=== PATIENT | male | born 1955 | race Caucasian/White ===

== ENCOUNTER → 2020-08-27 09:35 | Outpatient (BNVA) | payer OTHER, SELFPAY | PROVIDERS: Family Provider Family Medicine; Visit Provider Family Medicine | DX: I10 Essential (primary) hypertension (principal); K29.00 Acute gastritis without bleeding; R07.89 Other chest pain | CPT/HCPCS: 71046; 80053; 84484; 85025 ==

== ENCOUNTER 2020-08-28 10:25 | Inpatient (IN) | payer OTHER, SELFPAY ==
[2020-08-28] VITALS (11 sets, daily range): BP systolic 165–209; BP diastolic 78–113; PULSE 74–99; RESP 16–20; TEMP 36.4–36.8; O2SAT 95–100; BMI 20.7
--- NOTE | 2020-08-28 10:30 | CT_ITS ---
WS: [id number] CT ABDOMEN AND PELVIS NONCONTRAST HISTORY: Abdominal pain. TECHNIQUE: Imaging performed through the abdomen and pelvis. Coronal and sagittal reformats are submi tted. All CT scans at [facility] use at least one of these dose optimization techniques: automated exposure control; mA and/or kV adjustment per patient size (includes targeted exams where d ose is matched to clinical indication); or iterative reconstruction. DLP: 790.55 mGy.cm COMPARISON: None available. Lower thorax: Small layering bilateral pleural effusions with bibasilar areas of atelectasis. Focal c onsolidation is subsegmental at the RIGHT lung base consistent with pneumonia. Mild cardiomegaly. Liver: Normal size liver. No mass or bile duct dilatation. Gallbladder: Normal gallbladder. Pancreas: Normal size and attenuation. Normal pancreatic duct. No pancreatitis or mass. Spleen: Normal. Adrenal glands: Normal. No mass. Right kidney: Mild cortical thinning and atrophy with no obstruction. Left kidney: Mild cortical thinning with atrophy and no obstruction. Aorta: Moderate to severe atherosclerosis abdominal aorta. No aneurysm. Atherosclerosis continues int o the common iliac arteries. No free fluid, intraperitoneal air or significant lymphadenopathy. GI tract: Moderate diffuse fluid distention of the small bowel. There is a minimally dilated loop of small bowel extending into the very proximal RIGHT inguinal canal which may be causing a very minimal obstruction. The terminal ileum does appear less distended than the more proximal small bowel. The a ppendix is normal. There are a few colonic diverticula without acute diverticulitis. No free fluid or free air. Abdominal wall: Negative. No hernia. Pelvis: Urinary bladder is well distended. No free fluid. Osseous structures: Unremarkable. CT/CT abdomen pelvis wo con [id number] IMPRESSION: 1. Mild diffuse fluid distention of the small bowel. This may be secondary to a small bowel loop just minimally extending into a patent RIGHT inguinal canal. The distal small bowel is more normal caliber. There is no evidence for ischem ia. This small bowel loop extending into the RIGHT inguinal canal is only minim ally in the inguinal canal. 2. Normal appendix. 3. Small bilateral pleural effusions with RIGHT lower lobe pneumonia.
--- NOTE | 2020-08-28 10:31 | XR_ITS ---
WS: [id number] Portable AP upright chest, 08/28/2020 Clinical Data: dyspnea/cough Comparison: PA and lateral chest, 08/27/2020 Findings: No nodules, masses or effusions are seen. The heart is normal. The pulmonary vascularity is not increased. No pneumothorax is seen. There is minimal opacity over the surface of the right diaph ragm and a possible small right effusion. Monitor leads are on the chest wall. The aortic arch and de scending aorta show mild calcification and tortuosity. XR/XR chest 1V portable [id number] Impression: 1. Minimal opacity over surface of right diaphragm and minimal right pleural ef fusion. 2. Atherosclerosis.
[2020-08-28 10:51] LABS: Basophils # 0.1 10^3/uL (0.0-0.1); Eosinophils # 0.5 10^3/uL (0.0-0.8); Eosinophils % 6.6 %; Hematocrit 27.1 % (42.0-52.0); Lymphocytes # 1.5 10^3/uL (0.8-4.8); Lymphocytes % 18.4 %; Mean Corpuscular HGB Conc 33.2 g/dL (30.0-36.0); Mean Corpuscular Hemoglobin 33.6 pg (28.0-34.0); Mean Corpuscular Volume 101.1 fL (80-94); Mean Platelet Volume 9.9 fL (7.4-10.4); Monocytes # 0.6 10^3/uL (0.2-0.9); Monocytes % 6.8 %; Neutrophils # 5.33 10^3/uL (1.8-7.7); Neutrophils % 66.5 %; Nucleated Red Blood Cells % 0 %; Platelet Count 338 10^3/cmm (130-400); Red Blood Count 2.68 10^6/uL (4.1-5.3)
[2020-08-28 11:05] LABS: INR 1.16 (0.8-1.2)
[2020-08-28 11:06] LABS: Partial Thromboplastin Time 37.9 SECONDS (23.9-36.7)
[2020-08-28 11:11] LABS: Alanine Aminotransferase 10 U/L (0-41); Albumin Level 3.7 g/dL (3.5-5.2); Alkaline Phosphatase 83 IU/L (40-130); Anion Gap 21.1 (5-19); Aspartate Amino Transferase 19 U/L (0-40); Carbon Dioxide 13 mmol/L (22-29); Chloride 103 mmol/L (98-107); Glomerular Filtration Rate 12.3 mL/min (90-130); Glucose 82 mg/dL (65-115); Lipase 186 U/L (13-60); Osmolality Calculated 301 mOsm/kg (285-295); Potassium 4.1 mmol/L (3.5-5.1); Sodium 133 mmol/L (136-145); Total Bilirubin 0.2 mg/dL (0.15-1.2); Total Protein 7.7 g/dL (6.6-8.7)
[2020-08-28 11:13] LABS: Blood Urea Nitrogen 86 mg/dL (8-23); Calcium 4.3 mg/dL (8.5-10.5)
--- NOTE | 2020-08-28 11:25 | W.ED.RECABL ---
HPI - Recheck/Abnormal Lab/Rx General: Chief Complaint: Recheck/Abnormal Lab/Rx Stated Complaint: Abnormal labs Time Seen by Provider: 08/28/20 10:30 History of Present Illness: HPI narrative: 65-year-old male presents emergency room after abnormal labs were drawn at his doctor's office. His creatinine was found to be 5 and his hemoglobin was down to 8.9. He denies any history of hematochezia melena hematemesis or coffee-ground emesis. His tested positive for Covid he had symptoms last month but he was never actually tested positive. complaint: abnormal lab Initial visit (ago): day(s) Symptoms since prior visit: no new symptoms Context: called for abnormal lab result Associated symptoms: shortness of breath Review of Systems Const: Denies: fever(s), chills, body aches, change in appetite, fatigue or malaise ENMT: Denies: throat pain, ear or mastoid pain, nasal discharge or nasal congestion Card: Denies: chest pain, edema, dyspnea on exertion or orthopnea Resp: Denies: dyspnea, productive cough or non-productive cough GI: Denies: abdominal pain, nausea, vomiting, hematemesis, coffee ground emesis, diarrhea, constipation, bloating, hematochezia or melena : Denies: flank pain, dysuria, urinary frequency or urinary urgency Skin/Breast: Denies: rash or pruritus PFSH ED PFSH: Medical History (Updated 09/02/20 @ 13:16 by Nael Rodriguez DO) COVID-19 Hypertension Surgical History (Updated 08/31/20 @ 10:15 by Brian Vora MD) S/P hemodialysis catheter insertion (08/30/20) Social History Smoking and tobacco status: current every day smoker Alcohol intake: current Physical Exam Const: COMMON NORMALS: no acute distress GENERAL APPEARANCE: cooperative and comfortable ORIENTATION/CONSCIOUSNESS: Yes awake, Yes oriented to person, Yes oriented to place and Yes oriented to time HENMT: COMMON NORMALS: normocephalic, atraumatic and hearing grossly normal bilaterally HEAD & SCALP: normocephalic and atraumatic Neck/C-Spine: COMMON NORMALS: full ROM, no lymphadenopathy, supple and no JVD Resp: COMMON NORMALS: normal respiratory effort, No retractions, No use of accessory muscles and clear to auscultation bilaterally AUSCULTATION: clear to auscultation bilaterally Cardio: COMMON NORMALS: no JVD, regular rate, regular rhythm and No murmurs present (Cardio) RATE: regular rate RHYTHM: regular rhythm GI: COMMON NORMALS: Soft to palpation and No hepatosplenomegaly present AUSCULTATION: Yes normoactive bowel sounds PALPATION: Yes Soft to palpation, No Tenderness to palpation present (GI), No Guarding due to palpation present (GI) and Yes No hepatosplenomegaly present Extremity: COMMON NORMALS: normal to inspection, capillary refill normal, no clubbing, cyanosis or edema, no calf tenderness and no pedal edema Neuro: SENSORIUM/ORIENTATION: Yes oriented to person, Yes oriented to place and Yes oriented to time Skin: COMMON NORMALS: no rashes or lesions noted GENERAL SKIN EXAM: no rashes or lesions noted Course Vital Signs: Vital signs: Vital Signs Temperature 98.7 F 09/02/20 07:49 Pulse Rate 75 09/02/20 07:49 Respiratory Rate 18 09/02/20 07:49 Blood Pressure 128/65 09/02/20 07:49 Pulse Oximetry 97 09/02/20 07:49 MDM - Recheck/Abnormal Lab/Rx MDM Narrative: Medical decision making narrative: Admit for hypertensive urgency, acute renal failure and anemia Lab Data: Labs: Lab Results 08/28/20 08/28/20 08/28/20 Range/Units 10:39 10:44 10:44 WBC 8.0 (4.0-10.0) 10^3/ uL RBC 2.68 L (4.1-5.3) 10^6/u L Hgb 9.0 L (11.7-16.6) g/dL Hct 27.1 L (42.0-52.0) % MCV 101.1 H (80-94) fL MCH 33.6 (28.0-34.0) pg MCHC 33.2 (30.0-36.0) g/dL RDW 13.0 (12.1-15.1) % Plt Count 338 (130-400) 10^3/c mm MPV 9.9 (7.4-10.4) fL Neut % (Auto) 66.5 % Lymph % (Auto) 18.4 % Cannon % (Auto) 6.8 % Eos % (Auto) 6.6 % Baso % (Auto) 1.0 % Neut # (Auto) 5.33 (1.8-7.7) 10^3/u L Lymph # (Auto) 1.5 (0.8-4.8) 10^3/u L Cannon # (Auto) 0.6 (0.2-0.9) 10^3/u L Eos # (Auto) 0.5 (0.0-0.8) 10^3/u L Baso # (Auto) 0.1 (0.0-0.1) 10^3/u L Nucleated RBC % (a uto) 0 % Nucleated RBCs # 0.0 /100WBC Haptoglobin (30-200) mg/L PT 15.10 H (12.1-14.9) SECO NDS INR 1.16 (0.8-1.2) APTT 37.9 H (23.9-36.7) SECO NDS Sodium (136-145) mmol/L Potassium (3.5-5.1) mmol/L Chloride (98-107) mmol/L Carbon Dioxide (22-29) mmol/L Anion Gap (5-19) BUN (8-23) mg/dL Creatinine (0.7-1.2) mg/dL GFR Calculation (90-130) mL/min Glucose (65-115) mg/dL Calculated Osmolal ity (285-295) mOsm/k g Calcium (8.5-10.5) mg/dL Iron (59-158) ug/dL TIBC mcg/dl % Saturation (20-50) % Unsat Iron Binding (112-347) ug/dL Transferrin (200-360) mg/dL Total Bilirubin (0.15-1.2) mg/dL AST (0-40) U/L ALT (0-41) U/L Alkaline Phosphata se (40-130) IU/L Total Protein (6.6-8.7) g/dL Albumin (3.5-5.2) g/dL Globulin (1.3-4.6) g/dL Lipase (13-60) U/L Vitamin B12 (232-1245) pg/mL Folate (4.5-32.2) ng/mL Procalcitonin (0-0.5) ng/mL Urine Color Yellow (Yellow) Urine Appearance Clear (CLEAR) Urine pH 5 (5-7) Ur Specific Gravit y 1.005 (1.005-1.030) Urine Protein 3+ H (Negative) Urine Glucose (UA) Norm (Normal) Urine Ketones Negative (Negative) Urine Blood Neg (Negative) Urine Nitrate Negative (Negative) Urine Bilirubin Neg (Negative) Urine Urobilinogen Norm (Negative) mg/dL Ur Leukocyte Sheba ase Negative (Negative) Urine RBC 5-10 H (0-2) /hpf Urine WBC 0-4 H (0-5) /hpf Ur Squamous Epith Cells 0-4 H (0-5) /hpf Amorphous Sediment Not Reportable Urine Bacteria Trace (NONE) /hpf Urine Creatinine Cancelled Blood Type Rho(D) Type Antibody Screen 08/28/20 08/28/20 08/28/20 Range/Units 10:44 10:44 10:44 WBC (4.0-10.0) 10^3/ uL RBC (4.1-5.3) 10^6/u L Hgb (11.7-16.6) g/dL Hct (42.0-52.0) % MCV (80-94) fL MCH (28.0-34.0) pg MCHC (30.0-36.0) g/dL RDW (12.1-15.1) % Plt Count (130-400) 10^3/c mm MPV (7.4-10.4) fL Neut % (Auto) % Lymph % (Auto) % Cannon % (Auto) % Eos % (Auto) % Baso % (Auto) % Neut # (Auto) (1.8-7.7) 10^3/u L Lymph # (Auto) (0.8-4.8) 10^3/u L Cannon # (Auto) (0.2-0.9) 10^3/u L Eos # (Auto) (0.0-0.8) 10^3/u L Baso # (Auto) (0.0-0.1) 10^3/u L Nucleated RBC % (a uto) % Nucleated RBCs # /100WBC Haptoglobin 233.0 H (30-200) mg/L PT (12.1-14.9) SECO NDS INR (0.8-1.2) APTT (23.9-36.7) SECO NDS Sodium 133 L (136-145) mmol/L Potassium 4.1 (3.5-5.1) mmol/L Chloride 103 (98-107) mmol/L Carbon Dioxide 13 L (22-29) mmol/L Anion Gap 21.1 H (5-19) BUN 86 H* (8-23) mg/dL Creatinine 4.8 H (0.7-1.2) mg/dL GFR Calculation 12.3 L (90-130) mL/min Glucose 82 (65-115) mg/dL Calculated Osmolal ity 301 H (285-295) mOsm/k g Calcium 4.3 L* (8.5-10.5) mg/dL Iron 54 L (59-158) ug/dL TIBC 226 mcg/dl % Saturation 23.8 (20-50) % Unsat Iron Binding 172 (112-347) ug/dL Transferrin 181 L (200-360) mg/dL Total Bilirubin 0.2 (0.15-1.2) mg/dL AST 19 (0-40) U/L ALT 10 (0-41) U/L Alkaline Phosphata se 83 (40-130) IU/L Total Protein 7.7 (6.6-8.7) g/dL Albumin 3.7 (3.5-5.2) g/dL Globulin 4.0 (1.3-4.6) g/dL Lipase 186 H (13-60) U/L Vitamin B12 363 (232-1245) pg/mL Folate (4.5-32.2) ng/mL Procalcitonin 0.16 (0-0.5) ng/mL Urine Color (Yellow) Urine Appearance (CLEAR) Urine pH (5-7) Ur Specific Gravit y (1.005-1.030) Urine Protein (Negative) Urine Glucose (UA) (Normal) Urine Ketones (Negative) Urine Blood (Negative) Urine Nitrate (Negative) Urine Bilirubin (Negative) Urine Urobilinogen (Negative) mg/dL Ur Leukocyte Sheba ase (Negative) Urine RBC (0-2) /hpf Urine WBC (0-5) /hpf Ur Squamous Epith Cells (0-5) /hpf Amorphous Sediment Urine Bacteria (NONE) /hpf Urine Creatinine Blood Type Rho(D) Type Antibody Screen 08/28/20 08/28/20 Range/Units 10:44 11:19 WBC (4.0-10.0) 10^3/ uL RBC (4.1-5.3) 10^6/u L Hgb (11.7-16.6) g/dL Hct (42.0-52.0) % MCV (80-94) fL MCH (28.0-34.0) pg MCHC (30.0-36.0) g/dL RDW (12.1-15.1) % Plt Count (130-400) 10^3/c mm MPV (7.4-10.4) fL Neut % (Auto) % Lymph % (Auto) % Cannon % (Auto) % Eos % (Auto) % Baso % (Auto) % Neut # (Auto) (1.8-7.7) 10^3/u L Lymph # (Auto) (0.8-4.8) 10^3/u L Cannon # (Auto) (0.2-0.9) 10^3/u L Eos # (Auto) (0.0-0.8) 10^3/u L Baso # (Auto) (0.0-0.1) 10^3/u L Nucleated RBC % (a uto) % Nucleated RBCs # /100WBC Haptoglobin (30-200) mg/L PT (12.1-14.9) SECO NDS INR (0.8-1.2) APTT (23.9-36.7) SECO NDS Sodium (136-145) mmol/L Potassium (3.5-5.1) mmol/L Chloride (98-107) mmol/L Carbon Dioxide (22-29) mmol/L Anion Gap (5-19) BUN (8-23) mg/dL Creatinine (0.7-1.2) mg/dL GFR Calculation (90-130) mL/min Glucose (65-115) mg/dL Calculated Osmolal ity (285-295) mOsm/k g Calcium (8.5-10.5) mg/dL Iron (59-158) ug/dL TIBC mcg/dl % Saturation (20-50) % Unsat Iron Binding (112-347) ug/dL Transferrin (200-360) mg/dL Total Bilirubin (0.15-1.2) mg/dL AST (0-40) U/L ALT (0-41) U/L Alkaline Phosphata se (40-130) IU/L Total Protein (6.6-8.7) g/dL Albumin (3.5-5.2) g/dL Globulin (1.3-4.6) g/dL Lipase (13-60) U/L Vitamin B12 (232-1245) pg/mL Folate 5.1 (4.5-32.2) ng/mL Procalcitonin (0-0.5) ng/mL Urine Color (Yellow) Urine Appearance (CLEAR) Urine pH (5-7) Ur Specific Gravit y (1.005-1.030) Urine Protein (Negative) Urine Glucose (UA) (Normal) Urine Ketones (Negative) Urine Blood (Negative) Urine Nitrate (Negative) Urine Bilirubin (Negative) Urine Urobilinogen (Negative) mg/dL Ur Leukocyte Sheba ase (Negative) Urine RBC (0-2) /hpf Urine WBC (0-5) /hpf Ur Squamous Epith Cells (0-5) /hpf Amorphous Sediment Urine Bacteria (NONE) /hpf Urine Creatinine Blood Type B Positive Rho(D) Type Positive / 4+ Antibody Screen Negative Discharge Plan Discharge Patient Disposition: Admitted As Inpatient Admit Provider: Braydon Carrington Clinical Impression: Acute kidney injury, Hypertension, Acute hyperkalemia Condition: Stable Coding Level of Care Code ED Supervisor [place] Department for g Fwd Exam Comprehensive
[2020-08-28] MEDS: ondansetron 2 mg/ML SDV 2 mL 4 MG IVP (12:27)
[2020-08-28] MEDS: sodium chloride 0.9% 1,000 ML 999 ML IV (12:31)
--- NOTE | 2020-08-28 13:44 | PM.HP ---
Providers/Chief Complaint Admitting Physician: Braydon Carrington Primary Care Provider: Lauren Carranza MD Chief Complaint: G I Bleed/ Renal Problems History of Present Illness Jimmy Hernandez is a 65 year old male with past medical history of hypertension who was seen by his primary care physician couple of days ago with complaints of persistent nausea after recent Covid infection. Occasionally he dry heaves but reports no vomiting. He was diagnosed with Covid 19 about 2 months ago. His symptoms resolved without treatments. However nausea started about a month ago and did not go away. His primary care physician ran blood tests which revealed significantly increased creatinine. The patient was directed to emergency room for further evaluation. On review of systems he also reports numbness in the left hand. Denies abdominal pain. Reports couple of loose stools every day. The stool is brown. No blood. Denies fever or chills. Reports chronic cough. Mucus is white. No hemoptysis. He is a smoker. He was told before that he might have emphysema. Denies shortness of breath. Denies peripheral swelling. Denies chest pain or palpitations. No dizziness or lightheadedness. Reports yellow clear urine. Denies dysuria. No back pain. Denies similar episodes in the past. The patient denies any new medications taken recently. Denies any recreational drugs. Reports daily alcohol use. Review of Systems General: Reports: 10 or more systems reviewed and unremarkable except in HPI and below Medications/Allergies Home Medications Medication Instructions Recorded Confirmed Last Taken Type metoprolol tartrate 25 mg tablet 25 mg PO BID #180 tab 03/21/20 08/28/20 08/28/20 Rx lisinopril 20 mg tablet 20 mg PO DAILY #90 tab 03/26/20 08/28/20 08/28/20 Rx omeprazole 40 mg capsule,delayed 40 mg PO DAILY #30 cap 08/27/20 08/28/20 08/28/20 Rx release ondansetron HCl 4 mg tablet 4 mg PO Q8H PRN #30 tab 08/27/20 08/28/20 Unknown Rx Allergies Allergy/AdvReac Type Severity Reaction Status Date / Time Sulfa (Sulfonamide Allergy swelling Verified 08/27/20 07:46 Antibiotics) PFSH Acute PFSH: Medical History Hypertension Nicotine abuse Social History Smoking and tobacco status: current every day smoker Alcohol intake: current Vitals/I&O/Wt Last Vital Signs Temp 97.5 F L 08/28/20 10:29 Pulse 74 08/28/20 12:58 Resp 18 08/28/20 12:58 BP 189/113 08/28/20 12:58 Pulse Ox 99 08/28/20 12:58 Weight last 48 hrs Weight 63.503 kg Physical Exam Narrative: EXAM NARRATIVE: Awake alert oriented. No acute distress. Mood and affect are appropriate. Responses are adequate. Skin is warm and dry. Pale. Moist mucous membranes. Neck is supple. No JVD Eyes PERRLA, extraocular muscles are intact Normal speech. Lungs bilateral wheezes. No respiratory distress Heart S1, S2, regular Abdomen soft, nontender, bowel sounds are present Extremities no edema cyanosis or calf tenderness bilaterally Neuro examination is nonfocal. Cerebellar tests are within normal range. Data : 08/28/20 10:44 08/28/20 10:44 Other Labs: Laboratory Results WBC 8.0 10^3/uL (4.0-10.0) 08/28/20 10:44 RBC 2.68 10^6/uL (4.1-5.3) L 08/28/20 10:44 Hgb 9.0 g/dL (11.7-16.6) L 08/28/20 10:44 Hct 27.1 % (42.0-52.0) L 08/28/20 10:44 MCV 101.1 fL (80-94) H 08/28/20 10:44 MCH 33.6 pg (28.0-34.0) 08/28/20 10:44 MCHC 33.2 g/dL (30.0-36.0) 08/28/20 10:44 RDW 13.0 % (12.1-15.1) 08/28/20 10:44 Plt Count 338 10^3/cmm (130-400) 08/28/20 10:44 MPV 9.9 fL (7.4-10.4) 08/28/20 10:44 Neut % (Auto) 66.5 % 08/28/20 10:44 Lymph % (Auto) 18.4 % 08/28/20 10:44 Mercer % (Auto) 6.8 % 08/28/20 10:44 Eos % (Auto) 6.6 % 08/28/20 10:44 Baso % (Auto) 1.0 % 08/28/20 10:44 Neut # (Auto) 5.33 10^3/uL (1.8-7.7) 08/28/20 10:44 Lymph # (Auto) 1.5 10^3/uL (0.8-4.8) 08/28/20 10:44 Mercer # (Auto) 0.6 10^3/uL (0.2-0.9) 08/28/20 10:44 Eos # (Auto) 0.5 10^3/uL (0.0-0.8) 08/28/20 10:44 Baso # (Auto) 0.1 10^3/uL (0.0-0.1) 08/28/20 10:44 Nucleated RBC % (auto) 0 % 08/28/20 10:44 Nucleated RBCs # 0.0 /100WBC 08/28/20 10:44 PT 15.10 SECONDS (12.1-14.9) H 08/28/20 10:44 INR 1.16 (0.8-1.2) 08/28/20 10:44 APTT 37.9 SECONDS (23.9-36.7) H 08/28/20 10:44 Sodium 133 mmol/L (136-145) L 08/28/20 10:44 Potassium 4.1 mmol/L (3.5-5.1) 08/28/20 10:44 Chloride 103 mmol/L (98-107) 08/28/20 10:44 Carbon Dioxide 13 mmol/L (22-29) L 08/28/20 10:44 Anion Gap 21.1 (5-19) H 08/28/20 10:44 BUN 86 mg/dL (8-23) H* 08/28/20 10:44 Creatinine 4.8 mg/dL (0.7-1.2) H 08/28/20 10:44 GFR Calculation 12.3 mL/min (90-130) L 08/28/20 10:44 Glucose 82 mg/dL (65-115) 08/28/20 10:44 Calculated Osmolality 301 mOsm/kg (285-295) H 08/28/20 10:44 Calcium 4.3 mg/dL (8.5-10.5) L* 08/28/20 10:44 Total Bilirubin 0.2 mg/dL (0.15-1.2) 08/28/20 10:44 AST 19 U/L (0-40) 08/28/20 10:44 ALT 10 U/L (0-41) 08/28/20 10:44 Alkaline Phosphatase 83 IU/L (40-130) 08/28/20 10:44 Total Protein 7.7 g/dL (6.6-8.7) 08/28/20 10:44 Albumin 3.7 g/dL (3.5-5.2) 08/28/20 10:44 Globulin 4.0 g/dL (1.3-4.6) 08/28/20 10:44 Lipase 186 U/L (13-60) H 08/28/20 10:44 Blood Type B Positive 08/28/20 11:19 Rho(D) Type Positive / 4+ 08/28/20 11:19 Antibody Screen Negative 08/28/20 11:19 Impressions Abdomen/Pelvis CT 08/28/20 10:30 IMPRESSION: 1. Mild diffuse fluid distention of the small bowel. This may be secondary to a small bowel loop just minimally extending into a patent RIGHT inguinal canal. The distal small bowel is more normal caliber. There is no evidence for ischemia. This small bowel loop extending into the RIGHT inguinal canal is only minimally in the inguinal canal. 2. Normal appendix. 3. Small bilateral pleural effusions with RIGHT lower lobe pneumonia. Chest X-Ray 08/28/20 10:31 Impression: 1. Minimal opacity over surface of right diaphragm and minimal right pleural effusion. 2. Atherosclerosis. A&P Additional A&P Information 65-year-old male with past medical history of hypertension and COVID-19 infection about 2 months ago which did not require any treatments, was seen by his primary care physician for complaints of nausea. Blood testing revealed increased creatinine and new onset anemia. Acute kidney injury, severe. CT revealed possible chronic kidney disease. His creatinine several years ago was 0.9. No recent data is available. No evidence of hydronephrosis. The patient does not seem to be dehydrated. Will need nephrology evaluation and additional testing. Consulting Dr. Witt. Appreciate his input. Anemia. Most likely related to #1. However we will do additional testing to rule out other possibilities. Will order fecal occult blood testing, anemia work-up, haptoglobin to rule out hemolysis. Hemodynamically stable. We will closely monitor his H&H. We will transfuse when needed. Hypertensive urgency. We will continue his home beta-cherelle. We will stop lisinopril for now. We will add amlodipine and as needed labetalol. Hypocalcemia. Will replace with 2 g of calcium gluconate and recheck in the morning. Hyponatremia. Most likely related to COREY. Will monitor. Metabolic acidosis. Most likely related to #1. History of EtOH. We will start vitamin supplementation and as needed benzos per [facility] protocol. Tobacco abuse. Counseling will be provided. Possible emphysema. Will order as needed DuoNeb's. Spiriva. Right basilar opacity. Could be residual from his recent Covid pneumonia. Currently he does not have evidence of any uncontrolled infection. No fever. No shortness of breath. Chronic cough. I will check his procalcitonin level. Will start treatments only if infection is confirmed or highly suspected. Left upper extremity numbness. The patient reports a metal object in the head. Will discuss with radiology about possibility of MRI or will consider alternatives. Abnormal troponin. Denies chest pain or any other cardiac complaints. Most likely related to significant anemia in settings of acute kidney injury. Demand ischemia. Will order EKG and follow-up troponins. Will consider additional testing depending on symptoms and test results. CODE STATUS. The patient wants to be full code. The plan of care was discussed with the patient and his . They verbalized understanding and agreement. Attestations Medical Necessity Statement*: Based on my assessment of patient's presenting problems and need for additional testing I expect that the patient will spend more than 2 midnights in the hospital. Coding Level of Care Code Acute Trust Advisor for Maria Teresa Bruno
--- NOTE | 2020-08-28 14:08 | CT_ITS ---
WS: [id number] CT HEAD NONCONTRAST HISTORY: LUE numbness TECHNIQUE: Contiguous axial imaging performed through the brain in 2.5 mm imaging. Bone and soft tiss ue windows. Sagittal and coronal reformats reviewed. All CT scans at [facility] use at le ast one of these dose optimization techniques: automated exposure control; mA and/or kV adjustment pe r patient size (includes targeted exams where dose is matched to clinical indication); or iterative r econstruction. DLP: 980.52 mGy.cm COMPARISON: None available. No acute intracranial hemorrhage, midline shift or mass effect. Mild atrophy and chronic ischemic disease. Age indeterminate but subacute to chronic infarct involvin g the posterior RIGHT frontal lobe. No associated hemorrhage. Mild cerebral and cerebellar atrophy. T here is extensive artifact along the anterior interhemispheric falx from what is probably an aneurysm clip, may be associated with the anterior cerebral artery. Ventricles: Normal size with no hydrocephalus. Paranasal sinuses: As visualized are clear. Mastoid air cells: Well pneumatized. Calvarium and scalp: Bifrontal amie holes. CT/CT head wo con* [id number] IMPRESSION: 1. No acute intracranial hemorrhage. 2. 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 This infarct may explain the patient's LEFT hand numbness. 3. Extensive metallic artifact from what is probably an aneurysm clip along th e anterior interhemispheric falx.
[2020-08-28 14:29] LABS: Procalcitonin 0.16 ng/mL (0-0.5)
--- NOTE | 2020-08-28 14:32 | PM.CONSULT ---
Providers/Reason For Consult Consulting Physican/Specialty*: Nephrology Reason for Consult*: Renal failure Attending Physician: Braydon Carrington Primary Care Provider: Lauren Carranza MD History of Present Illness History of Present Illness Thank you for consultation, today I had the pleasure of reviewing this 65-year-old gentleman for evaluation of renal failure. He was told to come to our facility by his primary care doctor, Dr. Carranza (office number [phone]). I due to a variety of abnormalities identified on blood test. This included severe renal dysfunction with a creatinine of 5.3 mg/dL, bicarb of 14, anion gap 22.8, calcium of 4.7. Hemoglobin was noted to be 8.6. He is slightly nauseated for the last few days, he took some of his 's Zofran, also took some Pepto-Bismol. He did have symptoms of Covid a few weeks ago, following a confirmed case by his . I discussed his case with Dr. Carranza. For many years now Mr. Hernandez has had poorly controlled hypertension. He likes to avoid going to see doctors and has not been to the hospital for his whole life. He cannot recall the last time he had labs done and so we have no chronicity. Dr. Carranza will look in his medical chart to see any historic data tomorrow morning. Imaging is notable for a CT scan of the abdomen and pelvis which demonstrates bilaterally atrophic kidneys, with mild cortical thinning, moderate to severe atherosclerosis of the abdominal aorta. Hemodynamics are characteristically high for him. Prior to admission he took combination lisinopril metoprolol. He is currently receiving intravenous hydration with normal saline. He denies extremity edema, shortness of breath or other hypervolemic symptoms. Review of Systems Narrative: ROS - 12 point review of systems completed per HPI and subjective assessment, this includes Constitutional: No weakness, fatigue Respiratory: No SOB on exertion, comfortable at rest CardioVasc: No chest pain, palpitations Gastrointestinal: No nausea, no vomiting Neurological: No seizures, no AMS Derm: No new rashes, lesions or wounds Immunological: No seasonal and no food allergies Meds/Allergies Home Medications and Allergies Home Medications Medication Instructions Recorded Confirmed Last Taken Type metoprolol tartrate 25 mg tablet 25 mg PO BID #180 tab 03/21/20 08/28/20 08/28/20 Rx lisinopril 20 mg tablet 20 mg PO DAILY #90 tab 03/26/20 08/28/20 08/28/20 Rx omeprazole 40 mg capsule,delayed 40 mg PO DAILY #30 cap 08/27/20 08/28/20 08/28/20 Rx release ondansetron HCl 4 mg tablet 4 mg PO Q8H PRN #30 tab 08/27/20 08/28/20 Unknown Rx Allergies Allergy/AdvReac Type Severity Reaction Status Date / Time Sulfa (Sulfonamide Allergy swelling Verified 08/27/20 07:46 Antibiotics) PFSH Acute PFSH: Medical History Hypertension Nicotine abuse Social History Smoking and tobacco status: current every day smoker Alcohol intake: current Vitals/I&O/Wt Last Vital Signs Temp 97.5 F L 08/28/20 10:29 Pulse 77 08/28/20 14:25 Resp 18 08/28/20 14:25 BP 188/100 08/28/20 14:25 Pulse Ox 97 08/28/20 14:25 Weight last 48 hrs Weight 63.503 kg Physical Exam Narrative: EXAM NARRATIVE: Constitutional: Awake, comfortable HEENT: Wet mucosa, no jvp, non icteric Lungs: Bilaterally wheeze, rales in all lung zones CVS: S1 S2, no murmurs Abdo: Soft, BS ok Ext 4: Minimal edema, peripheral perfusion with no cyanosis Neurological: Grossly non-focal A&P Additional A&P Information 1. Very advanced renal failure Without any prior data, we do not know the chronicity of his renal injury, however, I suspect that this is very longstanding as he has bilateral renal atrophy on CT imaging, anemia from lack of endogenous erythropoietin, hypocalcemia from lack of endogenous calcitriol. There may be an element of prerenal azotemia from recent poor p.o. intake and his nausea. Chronic kidney disease likely secondary to renal vascular disease as there was significant amount of atherosclerosis seen in local adjacent arteries on the CT scan. 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 I agree with gentle IV hydration. I will get a renal artery Doppler to evaluate for stenosis. If there is significant stenosis I would strongly consider him for MRA/CT angio. We will do work-up to include urinalysis with urine protein quantification, microscopy, fractional excretion of sodium and urea. Serology to include TSH, CPK, uric acid, ANCA, complement Given the atrophic appearance of his kidneys on CT scan, a kidney biopsy is unlikely to be fruitful, however, this may be something to discuss with radiology. No acute indication for hemodialysis today, however, he will need preparation for modalities of renal replacement therapy for the future. This can be done as an outpatient depending upon local availability. Avoid usual nephrotoxic agents. Strict ins and outs Dose medication for GFR less than 15 2. Chemistry Anion gap metabolic acidosis, likely secondary to uremia, will send lactic acid level. No alkalinization until calcium levels adequate (this drops fractional ionized calcium portion from binding with hope and albumin ionic sites) 3. Bone metabolism of CKD Severe hypocalcemia, likely secondary to endogenous deficiency of calcitriol, again this indicates longstanding advanced chronic kidney disease. We will initiate calcitriol 0.5 mg daily Status post 2 g calcium gluconate. We will add Tums 1000 mg 4 times daily. We will check vitamin D, PTH, phosphorus levels 4. Hypertension Continue home medication with metoprolol 25 mg twice daily and will add hydralazine 50 mg 3 times daily given that he likely has renal artery narrowing. Case discussed with Dr Carranza, his PCP, Dr Carrington and his at bedside, answering all questions from family members to their satisfaction. Thank you for consultation, as always it is a pleasure to follow these patients with you Sarabjit Witt MD Nephrology [phone] Patient seen and examined via telemedicine, with the assistance of the bedside RN > 25 min spent in evaluation and mgmt of patient Consult Attestations Medical Necessity Statement: eval for renal failure Coding Level of Care Code Acute Remotely Operated Vehicle for Maria Teresa Bruno
--- NOTE | 2020-08-28 14:53 | ECG_ITS ---
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 Measurements Intervals [place] Rate: 71 P: 64 WI: 177 QRS: 69 QRSD: 98 T: 89 QT: 456 QTc: 499 Interpretive Statements SINUS RHYTHM POSSIBLE LEFT ATRIAL ENLARGEMENT [-0.1mV P WAVE IN V1/V2] PROLONGED QT INTERVAL No previous ECG available for comparison Electronically Signed On 08-28-2020 19:49:21 CDT by Florian Posey M.D. [id number]
--- NOTE | 2020-08-28 16:07 | ECG_ITS ---
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 Measurements Intervals [place] Rate: 100 P: 57 SD: 132 QRS: 59 QRSD: 101 T: 81 QT: 391 QTc: 506 Interpretive Statements SINUS TACHYCARDIA MINIMAL ST DEPRESSION [0.025+ mV ST DEPRESSION] Compared to ECG 08/28/2020 10:48:54 ST (T wave) deviation now present Sinus rhythm no longer present Prolonged QT interval no longer present Electronically Signed On 08-29-2020 17:28:08 CDT by Liane Boyer M.D. [id number]
[2020-08-28 16:12] LABS: Lactate (Lactic Acid level) 0.6 mmol/L (0.5-2.2)
[2020-08-28 16:27] LABS: 25 Hydroxy Vitamin D 6 ng/mL (30-100); Creatine Phosphokinase 191 U/L (39-308); Phosphorus 4.1 mg/dL (2.5-4.5); Thyroid Stimulating Hormone 3.36 uIU/mL (0.27-4.20); Uric Acid 8.5 mg/dL (3.4-7.0)
[2020-08-28 16:29] LABS: Magnesium 0.5 mg/dL (1.7-2.3)
[2020-08-28] MEDS: hyDRALAzine 25 mg Tablet 75 MG PO (16:37)
[2020-08-28] MEDS: calcium carbonate 500 mg Chew Tablet 1000 MG PO ×2 (16:38→18:07)
[2020-08-28 17:20] LABS: Troponin(5th) Baseline 38 ng/L (0-15)
[2020-08-28 17:26] LABS: Calcium 4.7 mg/dL (8.5-10.5)
[2020-08-28] MEDS: ipratropium-albuterol 3 mL Neb INHALATION (17:26)
[2020-08-28 17:36] LABS: Iron 54 ug/dL (59-158); Percent Saturation 23.8 % (20-50); Total Iron Binding Capacity 226 mcg/dl; Transferrin 181 mg/dL (200-360); Unsaturated Iron Binding 172 ug/dL (112-347); Vitamin B12 363 pg/mL (232-1245)
--- NOTE | 2020-08-28 17:38 | PC.RESP ---
Smoking Cessation information sent to patient.
[2020-08-28 17:47] LABS: Folate Level 5.1 ng/mL (4.5-32.2)
[2020-08-28 18:02] LABS: Troponin 5 2HR 34.15 ng/L (0-15)
[2020-08-28 18:12] LABS: Troponin 5 2HR Delta -3.85 ABS# (0-10)
[2020-08-28] MEDS: sodium chloride 0.9% 1,000 ML 75 ML IV (18:47)
[2020-08-28 19:27] LABS: Add Urine Microscopic? YES; Bilirubin Urine Neg (Negative); Blood Urine 3+ (Negative); Glucose Urine UA Norm (Normal); Ketones Urine Negative (Negative); Leukocyte Esterase Urine Negative (Negative); Nitrate Urine Negative (Negative); Protein Urine 3+ (Negative); Urine Appearance Clear (CLEAR); Urine Color Straw (Yellow); Urobilinogen Urine Norm (Negative); pH Urine 5 (5-7)
[2020-08-28 19:36] LABS: Bacteria Urine 1+ /hpf; Squamous Epithelial Cell Urine 0-4 /hpf (0-5)
--- NOTE | 2020-08-28 20:02 | ECG_ITS ---
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 Measurements Intervals [place] Rate: 86 P: 62 MS: 150 QRS: 46 QRSD: 95 T: 68 QT: 416 QTc: 500 Interpretive Statements SINUS RHYTHM Compared to ECG 08/28/2020 17:23:53 Sinus tachycardia no longer present ST (T wave) deviation no longer present Electronically Signed On 08-29-2020 17:27:57 CDT by Liane Boyer M.D. [id number]
--- NOTE | 2020-08-28 20:21 | PC.NURSE ---
AT APPROX 1830 WENT TO PTS ROOM TO ANSWER HIS CALL LIGHT. PTS STATED, THAT TX FROM RESP. MADE HIM FLUSH NOTIFIED RT, THEY CAME TO PTS ROOM, VS CHECK AND WERE WNL. EKG ALSO PREFORMED. PTS BP TAKEN AND WAS TO FOUND TO BE 119/76. PTS STATES, THAT'S WAY TOO LOW FOR HIM! DR. CHRISTIE NOTIFIED, CAME TO ROOM TO ASSESS PT, PT WAS LAID DOWN FLAT AND PTS BP KALYAN TO 156/84. WILL CONTINUE TO MONITOR.
[2020-08-28] MEDS: magnesium sulfate premix 2 GM/50 ML PIGGYBACK IV (20:53)
[2020-08-28] MEDS: metoprolol tartrate 25 mg Tablet PO (20:55)
[2020-08-28 22:02] LABS: Troponin 5 6HR 42.26 ng/L (0-15); Troponin 5 6HR Delta 4.26 ng/L (0-12)
[2020-08-28 23:14] LABS: Complement C3 112 mg/dL (90-180)
[2020-08-29] VITALS (12 sets, daily range): BP systolic 140–194; BP diastolic 67–82; PULSE 80–93; RESP 16–18; TEMP 36.6–37; O2SAT 95–98
[2020-08-29] MEDS: sodium chloride 0.9% 1,000 ML 75 ML IV (03:49)
--- NOTE | 2020-08-29 05:00 | USCV_ITS ---
Jimmy Hernandez Age: 65 Gender: M : 1955 Exam Date: 08/29/2020 06:50 Ordering Phys: Braydon Carrington MD Technologist: Analilia Sahu Exam Location: [facility] – [place] Indication: stroke workup BP: 167 / 79 HR: 91 Rhythm: Sinus Technical Quality: Adequate MEASUREMENTS (Male / Female) Normal Values 2D ECHO LV Diastolic Diameter PLAX 4.6 cm 4.2 - 5.9 / 3.9 - 5.3 cm LV Systolic Diameter PLAX 2.8 cm LV Chamber Size 3.2 cm IVS Diastolic Thickness 1.2 cm 0.6 - 1.0 / 0.6 - 0.9 cm IVS Systolic Thickness 1.4 cm LVPW Diastolic Thickness 1.9 cm 0.6 - 1.0 / 0.6 - 0.9 cm LVPW Systolic Thickness 2.9 cm RV Chamber Size 3.0 cm LVOT Diameter 2.1 cm LV Ejection Fraction 2D Teich 69.6 % LV Ejection Fraction MOD 2C 54.3 % LV Ejection Fraction 2C AL 56.8 % LA Diameter 4.0 cm LA Width 3.4 cm LA Height 4.5 cm RA Width 3.0 cm RA Height 4.1 cm Aorta at Sinotubular Diameter 3.2 cm M-MODE LV Diastolic Diameter MM 4.7 cm 4.2 - 5.9 / 3.9 - 5.3 cm LV Systolic Diameter MM 3.0 cm LV Ejection Fraction MM Teich 67.6 % IVS Diastolic Thickness MM 0.8 cm 0.6 - 1.0 / 0.6 - 0.9 cm IVS Systolic Thickness MM 1.2 cm LVPW Diastolic Thickness MM 1.1 cm 0.6 - 1.0 / 0.6 - 0.9 cm LVPW Systolic Thickness MM 1.4 cm Aortic Annulus Diameter 3.6 cm LA Ao Ratio MM 1.1 MV E Point Septal Separation 0.6 cm DOPPLER AV Peak Velocity 134.0 cm/s LVOT Peak Velocity 101.0 cm/s AV Area Cont Eq vti 2.7 cm squared AV Area Cont Eq pk 2.5 cm squared MV Area PHT 7.1 cm squared Mitral E to A Ratio 1.0 MV E' Velocity 67.0 cm/s Mitral E to MV E' Ratio 10.3 Mitral E to LV E' Lateral Ratio 9.6 Mitral E to LV E' Septal Ratio 11.1 TR Peak Velocity 339.4 cm/s TR Peak Gradient 46.1 mmHg TR Mean Velocity 231.9 cm/s TR Mean Gradient 25.3 mmHg TR Velocity Time Integral 90.8 cm TV Peak E Velocity 77.0 cm/s Right Atrial Pressure 3.0 mmHg Pulmonary Artery Systolic Pressu 49.1 mmHg PV Peak Velocity 91.0 cm/s RV Acceleration Time 0.3 s RV Ejection Time 0.4 s RV AcT/ET 0.7 FINDINGS Left Ventricle Normal left ventricular size. LV systolic function is normal with EF of 55-60%.No regional wall motion abnormalities. Normal diastolic filling pattern. Right Ventricle The right ventricle is normal in size and function. Right Atrium The right atrium is normal in size. Left Atrium The left atrium is normal in size. Mitral Valve Structurally normal mitral valve without significant stenosis or prolapse. There is mild mitral regurgitation. Aortic Valve Structurally normal aortic valve without significant sclerosis or stenosis. There is no aortic regurgitation. Tricuspid Valve Structurally normal tricuspid valve without significant stenosis. Trace tricuspid regurgitation. Insufficient TR jet to calculate RVSP Pulmonic Valve Structurally normal pulmonic valve without significant stenosis. There is no pulmonic regurgitation. Pericardium Normal pericardium without effusion. Aorta Normal ascending aorta dimension. CONCLUSIONS LV systolic function is normal with EF of 55-60% Diastolic function is normal There is mild mitral regurgitation. Trace tricuspid regurgitation No comparison studies are available Alvin Mcpherson MD (Electronically Signed) Final Date: 29 August 2020 16:28 S
--- NOTE | 2020-08-29 05:00 | USCV_ITS ---
Jimmy Hernandez Age: 65 Gender: M : 1955 Exam Date: 08/29/2020 07:02 Ordering Phys: Braydon Carrington MD Technologist: RUSS Exam Location: [facility] – [place] Indication: stroke workup Risk Factors: Previous Vascular Surgery: Right Brachial BP: / Left Brachial BP: / Right Left Velocity (cm/s) Spectral Plaque Velocity (cm/s) Spectral Plaque Syst/Diast Broadening Syst/Diast Broadening 91.50/ 19.80 Prox CCA 58.50 / 14.00 81.60/ 25.40 Mid CCA 48.30 / 9.70 79.40/ 32.00 Distal CCA 61.50 / 14.50 70.00/ 29.70 Prox ICA 75.50 / 27.50 77.40/ 31.30 Mid ICA 77.20 / 21.50 79.90/ 23.90 Distal ICA 75.50 / 25.70 151.70 ECA 94.40 0.98 ICA/CCA 1.60 Antegrade Vertebral Antegrade 61.80/ 20.60 cm/s 38.50/ 12.80 cm/s Tri Subclavian Tri 70.90 90.40 FINDINGS Comparison: none available. No significant elevation of systolic or diastolic velocities. Waveforms are normal. Diffuse, mild bilateral scattered calcified plaque and intimal thickening throughout the common carotid arteries and extending through the bifurcation. CONCLUSIONS Bilateral ICA stenosis less than 50%. Mild diffuse atherosclerosis. Dr. Silva Wilkes DO (Electronically Signed) Final Date: 29 August 2020 08:48 S
--- NOTE | 2020-08-29 05:00 | USCV_ITS ---
Jimmy Hernandez Age: 65 Gender: M : 1955 Exam Date: 08/29/2020 07:17 Ordering Phys: Sarabjit Witt MD Technologist: Analilia Sahu Exam Location: [facility] [place] Site Location: [Add Site Location] Indication: HTN Aortic Velocity @ SMA (cm/s) 128 RIGHT KIDNEY LEFT KIDNEY Velocity (cm/s) Velocity (cm/s) Sys/Pringle Sys/Pringle Resistive Index Resistive Index 93.1 / 17.4 0.81 Proximal Renal Artery 61.1 / 13.3 0.78 93.7 / 15.4 0.84 Mid Renal Artery 42.8 / 10.5 0.75 51.5 / 16.7 0.68 Distal Renal Artery 61.1 / 13.3 0.78 35.8 / 13.3 0.63 Hilar 27.1 / 8.6 0.68 21.7 / 10.5 0.52 Upper Pole 15.4 / 7.2 0.53 26.8 / 11.6 0.57 Mid Pole 30.0 / 9.5 0.68 28.9 / 17.1 0.41 Lower Pole 61.1 / 21.7 0.65 0.70 Renal Aortic Ratio 0.48 Accleration Index (cm/sec2) 1394.0 Hilar 864.00 0 568.00 Upper Pole 791.00 596.00 Mid Pole 689.00 358.00 Lower Pole 1909.0 0 99.8 Kidney Length (mm) 106.0 FINDINGS No evidence of abdominal aortic aneurysm. There is no evidence of hemodynamically significant right renal artery stenosis. There is no evidence of hemodynamically significant left renal artery stenosis. Echogenic kidneys suggest chronic medical renal disease. CONCLUSIONS No sonographic evidence of hemodynamically significant renal artery stenosis bilaterally. Dr. Silva Wilkes DO (Electronically Signed) Final Date: 29 August 2020 08:50 S
[2020-08-29 06:11] LABS: Basophils # 0.1 10^3/uL (0.0-0.1); Basophils % 0.8 %; Eosinophils # 0.2 10^3/uL (0.0-0.8); Eosinophils % 3.7 %; Hemoglobin 7.8 g/dL (11.7-16.6); Lymphocytes # 0.8 10^3/uL (0.8-4.8); Lymphocytes % 12.6 %; Mean Corpuscular HGB Conc 32.5 g/dL (30.0-36.0); Mean Corpuscular Hemoglobin 32.5 pg (28.0-34.0); Mean Platelet Volume 10.4 fL (7.4-10.4); Monocytes # 0.5 10^3/uL (0.2-0.9); Monocytes % 8.4 %; Neutrophils # 4.72 10^3/uL (1.8-7.7); Neutrophils % 73.7 %; Nucleated Red Blood Cells % 0 %; Platelet Count 328 10^3/cmm (130-400); White Blood Count 6.4 10^3/uL (4.0-10.0)
[2020-08-29 06:18] LABS: PROTEIN, TOTAL 7.2 g/dL (6.1-8.1)
[2020-08-29 06:49] LABS: Alanine Aminotransferase 8 U/L (0-41); Albumin Level 3.3 g/dL (3.5-5.2); Alkaline Phosphatase 62 IU/L (40-130); Anion Gap 26.4 (5-19); Aspartate Amino Transferase 17 U/L (0-40); Carbon Dioxide 11 mmol/L (22-29); Chloride 106 mmol/L (98-107); Globulin 2.7 g/dL (1.3-4.6); Glomerular Filtration Rate 10.5 mL/min (90-130); Glucose 73 mg/dL (65-115); Osmolality Calculated 313 mOsm/kg (285-295); Potassium 4.4 mmol/L (3.5-5.1); Sodium 139 mmol/L (136-145); Total Bilirubin 0.2 mg/dL (0.15-1.2)
[2020-08-29 07:02] LABS: Phosphorus 4.5 mg/dL (2.5-4.5); Thyroid Stimulating Hormone 2.06 uIU/mL (0.27-4.20)
[2020-08-29 07:13] LABS: Blood Urea Nitrogen 88 mg/dL (8-23); Calcium 5.3 mg/dL (8.5-10.5)
[2020-08-29 07:30] LABS: Chol HDL Ratio 2.65 mg/dL (1.0-5.00); Cholesterol 114 mg/dL (0-200); HDL Cholesterol 43 mg/dL (60-100); LDL Cholesterol Calculated 45 mg/dL (50-129); LDL HDL Ratio 1.05 RATIO (0.00-3.22); Triglycerides 131 mg/dL (0-150)
--- NOTE | 2020-08-29 07:43 | P.PN_ITS ---
Subjective Subjective: Interval history: reports nausea improved Medications: Reviewed: Yes Vitals/I&O/Wt Last Vital Signs Temp 98.6 F 08/29/20 03:56 Pulse 87 08/29/20 06:00 Resp 16 08/29/20 03:56 BP 167/79 08/29/20 03:56 Pulse Ox 95 08/29/20 03:56 08/28/20 08/29/20 08/29/20 22:59 06:59 14:59 Intake Total 1120 / 1120 677.5 / 1797.5 Output Total 325 / 325 Balance 795 / 795 677.5 / 1472.5 Weight last 48 hrs Weight 63.503 kg Physical Exam Const: COMMON NORMALS: no acute distress GENERAL APPEARANCE: cooperative Resp: COMMON NORMALS: normal respiratory effort and clear to auscultation bilaterally AUSCULTATION: clear to auscultation bilaterally Cardio: COMMON NORMALS: regular rate and regular rhythm RATE: regular rate RHYTHM: regular rhythm Extremity: COMMON NORMALS: no pedal edema Data : 08/29/20 04:52 08/29/20 04:52 CT Abd/Pel: Radiologist's impression: Right kidney: Mild cortical thinning and atrophy with no obstruction. Left kidney: Mild cortical thinning with atrophy and no obstruction. Aorta: Moderate to severe atherosclerosis abdominal aorta. No aneurysm. Ather osclerosis continues into the common iliac arteries. US: Radiologist's impression: No evidence of abdominal aortic aneurysm. There is no evidence of hemodynamically significant right renal artery stenosis. There is no evidence of hemodynamically significant left renalartery stenosis. Echogenic kidneys suggest chronic medical renal disease. A&P Additional A&P Information Impression: 1. Likely ESRD 2. Metabolic acidosis 3. Hypocalcemia, vitamin D levels pending, hypomagnesemia 4. Anemia, iron replete 5. Hypertension, no evidence VERNON on doppler Recommend: add ergocalciferol and calcitriol, continue oral calcium, check ionized calcium, replace Mg IV and PO. Begin oral sodium bicarbonate, increase amlodipine and if neededm increase hydralazine I had a long discussion with Jimmy about ESRD, options for dialysis. My recommendation is placement of tunneled hemodialysis catheter with initiation of dialysis prior to discharge. We discussed peritoneal dialysis which could be arranged by outpatient nephrology. There should be improvement in electrolytes prior to OR. Attestations Medical Necessity Statement*: see above Coding Level of Care Code Acute Window Caser for Maria Teresa Bruno
[2020-08-29] MEDS: magnesium sulfate premix 2 GM/50 ML PIGGYBACK IV ×2 (08:40→14:31)
[2020-08-29] MEDS: sodium bicarbonate 650 mg Tablet PO ×4 (08:41→20:35)
[2020-08-29] MEDS: ergocalciferol (vitamin D2) 50,000 Unit Capsule 50000 UNIT PO (08:41)
[2020-08-29] MEDS: multivitamin therapeutic Tablet 1 TAB PO (08:42)
[2020-08-29] MEDS: hyDRALAzine 25 mg Tablet 75 MG PO ×2 (08:42→14:25)
[2020-08-29] MEDS: pantoprazole DR 40 mg Tablet PO (08:42)
[2020-08-29] MEDS: thiamine 100 mg Tablet PO (08:42)
[2020-08-29] MEDS: metoprolol tartrate 25 mg Tablet PO ×2 (08:42→20:35)
[2020-08-29] MEDS: amlodipine 5 mg Tablet PO (08:46)
[2020-08-29] MEDS: sodium bicarbonate 150 MEQ in dextrose 5% 1,000 ML 100 MEQ IV (08:47)
[2020-08-29] MEDS: calcium carbonate 500 mg Chew Tablet 1000 MG PO ×3 (10:17→17:44)
[2020-08-29] MEDS: lactulose oral liq 20 gm/30 mL UDC 10 GM PO ×2 (10:44→17:47)
[2020-08-29] MEDS: calcitriol 0.25 mcg Capsule 0.5 MCG PO (10:50)
[2020-08-29] MEDS: amlodipine 5 mg Tablet 10 MG PO (10:50)
[2020-08-29 13:45] LABS: Ionized Calcium 0.7 mmol/L (1.1-1.4)
[2020-08-29] MEDS: calcium gluconate 0.1 gm/mL 10% SDV 10mL 1 GM IVP (14:59)
[2020-08-29 15:18] LABS: ALBUMIN 3.5 g/dL (3.8-4.8); ALPHA 1 GLOBULIN 0.4 g/dL (0.2-0.3); ALPHA 2 GLOBULIN 0.9 g/dL (0.5-0.9); BETA 1 GLOBULIN 0.4 g/dL (0.4-0.6); BETA 2 GLOBULIN 0.7 g/dL (0.2-0.5); GAMMA GLOBULIN 1.4 g/dL (0.8-1.7)
--- NOTE | 2020-08-29 15:30 | PM.PN ---
Subjective Subjective: Interval history: The patient denies any nausea or vomiting. No bowel movement yet. Denies chest pain, shortness of breath, cough, palpitations. No muscle weakness. The numbness in the hand is unchanged. No fever or chills. Medications: Reviewed: Yes Medication Review Details: Generic Name Dose Route Start Last Admin Trade Name Freq PRN Reason Stop Dose Admin Albuterol/Ipratrop ium 3 ml 08/28/20 14:00 08/28/20 17:26 Ipratropium-Albu terol 3 Ml Neb INHALATION 3 ml Q4H PRN Administration SHORTNESS OF ELVIN TH Amlodipine Besylat e 10 mg 08/29/20 10:30 08/29/20 10:50 Amlodipine 5 Mg Tablet PO 10 mg DAILY YARELY Administration Calcitriol 0.5 mcg 08/29/20 10:25 08/29/20 10:50 Calcitriol 0.25 Mcg Capsule PO 0.5 mcg DAILY YARELY Administration Calcium Carbonate 1,000 mg 08/28/20 14:30 08/29/20 14:25 Calcium Carbonat e 500 Mg Chew Tabl et PO 1,000 mg Q4H YARELY Administration Hydralazine HCl 75 mg 08/28/20 15:00 08/29/20 14:25 Hydralazine 25 M g Tablet PO 75 mg TID YARELY Administration Lactulose 10 gm 08/29/20 10:21 08/29/20 10:44 Lactulose Oral L iq 20 Gm/30 Ml Udc PO 10 gm Q6H PRN Administration CONSTIPATION Metoprolol Tartrat e 25 mg 08/28/20 21:00 08/29/20 08:42 Metoprolol Tartr ate 25 Mg Tablet PO 25 mg BID@0900,2100 YARELY Administration Multivitamins Ther apeutic 1 tab 08/29/20 09:00 08/29/20 08:42 Multivitamin The rapeutic Tablet PO 1 tab DAILY YARELY Administration Pantoprazole Sodiu m 40 mg 08/29/20 09:00 08/29/20 08:[address] 40 Mg Tablet PO 40 mg DAILY YARELY Administration Sodium Bicarbonate 650 mg 08/29/20 09:00 08/29/20 12:17 Sodium Bicarbona te 650 Mg Tablet PO 650 mg QID YARELY Administration Thiamine Mononitra te 100 mg 08/29/20 09:00 08/29/20 08:42 Thiamine 100 Mg Tablet PO 100 mg DAILY YARELY Administration Tiotropium [place] 18 mcg 08/29/20 08:00 08/29/20 12:05 Tiotropium 18 Mc g Mdi INHALATION Not Given DAILY.RESPIRATORY YARELY Vitals/I&O/Wt Last Vital Signs Temp 98.4 F 08/29/20 15:08 Pulse 81 08/29/20 15:08 Resp 17 08/29/20 15:08 BP 145/75 08/29/20 15:08 Pulse Ox 96 08/29/20 15:08 08/29/20 08/29/20 08/29/20 06:59 14:59 22:59 Intake Total 677.5 / 1797.5 906.25 / 906.25 Output Total 950 / 950 Balance 677.5 / 1472.5 -43.75 / -43.75 Weight last 48 hrs Weight 63.503 kg Physical Exam Narrative: EXAM NARRATIVE: Awake alert oriented. No acute distress. Mood and affect are appropriate. Responses are adequate. Skin is warm and dry. Pale. Moist mucous membranes. Neck is supple. No JVD Eyes PERRLA, extraocular muscles are intact Normal speech. Lungs bilateral wheezes. No respiratory distress Heart S1, S2, regular Abdomen soft, nontender, bowel sounds are present Extremities no edema cyanosis or calf tenderness bilaterally No focal muscle weakness. Cerebellar tests are within normal range. Data : 08/29/20 04:52 08/29/20 04:52 A&P Additional A&P Information 65-year-old male with past medical history of hypertension and COVID-19 infection about 2 months ago which did not require any treatments, was seen by his primary care physician for complaints of nausea. Blood testing revealed increased creatinine and new onset anemia. Acute kidney injury, severe. Possible end-stage renal disease. CT revealed possible chronic kidney disease. His creatinine several years ago was 0.9. No recent data is available. No evidence of hydronephrosis. The patient does not seem to be dehydrated. Appreciate nephrology team evaluation and advice. Will probably have tunneled catheter placed for dialysis tomorrow. Anemia. Most likely related to #1. No evidence of hemolysis. Folic acid is deficient probably due to EtOH. Will replace. FOBT pending. Hypertensive urgency. Medications are adjusted. Currently BP is controlled. Hypocalcemia. We will continue replacement and monitoring. Hypomagnesemia. Replace and monitor. QT prolongation on initial EKG. Probably due to hypomagnesemia. Resolved. Hyponatremia. Most likely related to COREY. Resolved today. Metabolic acidosis. Most likely related to #1. Receiving bicarb. Continue management per fermenting cellars supervisor. History of EtOH. Continue vitamin supplementation and CIWA protocol. No evidence of withdrawals at this time. Tobacco abuse. Counseling will be provided. Possible emphysema. Continue Spiriva and as needed DuoNeb's. Right basilar opacity. Could be residual from his recent Covid pneumonia. Currently he does not have evidence of any uncontrolled infection. No fever. No shortness of breath. Chronic cough. Calcitonin level within normal range. 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 Subacute findings on CT. Left upper extremity numbness. Will start aspirin and statin. Will need to improve blood pressure control. Abnormal troponin. No ischemic changes on EKG. Denies chest pain or any other cardiac complaints. Most likely related to significant anemia in settings of acute kidney injury and malignant hypertension. Demand ischemia. Will order EKG and follow-up troponins. Will consider additional testing depending on symptoms and test results. CODE STATUS. Full code. DVT prophylaxis. We will start heparin after ruling out blood loss. Fecal occult blood testing is pending. The plan of care was discussed with the patient and his . They verbalized understanding and agreement. Discussed with fermenting cellars supervisor Dr. Savage. I appreciate her input. Attestations Medical Necessity Statement*: Patient is here with acute renal failure, possible end-stage renal disease. Probably requires dialysis. Coding Level of Care Code Acute Surveillance Sensor Officer for Maria Teresa Bruno
[2020-08-29] MEDS: magnesium oxide 400 mg tablet PO (17:44)
[2020-08-29] MEDS: docusate sodium 100 mg Capsule PO (17:44)
[2020-08-29] MEDS: folic acid 1 mg Tablet PO (17:45)
[2020-08-29 18:11] LABS: Ionized Calcium 0.8 mmol/L (1.1-1.4)
[2020-08-30] VITALS (22 sets, daily range): BP systolic 80–185; BP diastolic 48–85; PULSE 66–96; RESP 16–20; TEMP 36.3–37.4; O2SAT 92–100
--- NOTE | 2020-08-30 | SCC_ITS ---
Procedure Done: Placement of 23 cm long 16 [place] AshSplit tunneled hemodialysis catheter Fluoroscopic guidance and interpretation for placement of catheter Ultrasound guidance to access the right internal jugular vein 59.6 seconds of fluoroscopic guidance, for a cumulative dose of 7.63 mGy, was provided to Dr. Vora by the radiology department. C-arm images of the chest were saved for the patient's permanent record. [facility]
[2020-08-30 05:56] LABS: Basophils # 0.1 10^3/uL (0.0-0.1); Basophils % 0.7 %; Eosinophils # 0.4 10^3/uL (0.0-0.8); Eosinophils % 5.2 %; Hemoglobin 7.7 g/dL (11.7-16.6); Lymphocytes % 12.5 %; Mean Corpuscular HGB Conc 33.5 g/dL (30.0-36.0); Mean Corpuscular Hemoglobin 32.9 pg (28.0-34.0); Mean Corpuscular Volume 98.3 fL (80-94); Mean Platelet Volume 10.3 fL (7.4-10.4); Monocytes # 0.6 10^3/uL (0.2-0.9); Monocytes % 7.6 %; Neutrophils # 6.02 10^3/uL (1.8-7.7); Neutrophils % 73.2 %; Nucleated Red Blood Cells % 0 %; Platelet Count 323 10^3/cmm (130-400); Red Blood Count 2.34 10^6/uL (4.1-5.3); White Blood Count 8.2 10^3/uL (4.0-10.0)
[2020-08-30 06:15] LABS: Albumin Level 3.2 g/dL (3.5-5.2); Anion Gap 20.9 (5-19); Blood Urea Nitrogen 79 mg/dL (8-23); Carbon Dioxide 17 mmol/L (22-29); Chloride 100 mmol/L (98-107); Glomerular Filtration Rate 11.2 mL/min (90-130); Glucose 98 mg/dL (65-115); Phosphorus 3.4 mg/dL (2.5-4.5); Potassium 3.9 mmol/L (3.5-5.1); Sodium 134 mmol/L (136-145)
[2020-08-30 06:16] LABS: Magnesium 1.9 mg/dL (1.7-2.3)
--- NOTE | 2020-08-30 06:48 | P.PN_ITS ---
Subjective Subjective: Interval history: feels well Medications: Reviewed: Yes Vitals/I&O/Wt Last Vital Signs Temp 98.2 F 08/30/20 03:43 Pulse 94 08/30/20 03:43 Resp 16 08/30/20 03:43 BP 147/71 08/30/20 03:43 Pulse Ox 95 08/30/20 03:43 08/29/20 08/29/20 08/30/20 14:59 22:59 06:59 Intake Total 906.25 / 906.25 1320 / 2226.25 Output Total 950 / 950 240 / 1190 750 / 1940 Balance -43.75 / -43.75 1080 / 1036.25 -750 / 286.25 Weight last 48 hrs Weight 63.503 kg Physical Exam Const: COMMON NORMALS: no acute distress GENERAL APPEARANCE: cooperative Resp: COMMON NORMALS: clear to auscultation bilaterally AUSCULTATION: clear to auscultation bilaterally Cardio: COMMON NORMALS: regular rate and regular rhythm RATE: regular rate RHYTHM: regular rhythm Extremity: COMMON NORMALS: no pedal edema Data : 08/30/20 04:55 08/30/20 04:55 A&P Additional A&P Information Impression: 1. Likely ESRD. Records from [facility] show serum Cr 1.3 mg/dL in May 2018 2. Metabolic acidosis, improved 3. Hypocalcemia, improving, vitamin D levels pending 4. hypomagnesemia - resolved 4. Anemia, iron replete 5. Hypertension, no evidence VERNON on doppler, relatively well-controlled Recommend: continue calcitriol, continue oral calcium, continue oral sodium bicarbonate. SQ epogen. I had a long discussion with Jimmy about ESRD, options for dialysis. My recommendation is placement of tunneled hemodialysis catheter with initiation of dialysis prior to discharge. We discussed peritoneal dialysis which could be arranged by outpatient nephrology. There should be improvement in electrolytes prior to OR. Attestations Medical Necessity Statement*: see above Coding Level of Care Code Acute Vehicle Window Tinter for Maria Teresa Bruno
[2020-08-30 07:02] LABS: Creatinine Clr Calc Pharmacy 13.7671
[2020-08-30 07:03] LABS: Calcium 5.8 mg/dL (8.5-10.5)
[2020-08-30] MEDS: sodium bicarbonate 650 mg Tablet PO ×2 (08:24→20:09)
[2020-08-30] MEDS: multivitamin therapeutic Tablet 1 TAB PO (08:24)
[2020-08-30] MEDS: magnesium oxide 400 mg tablet PO (08:24)
[2020-08-30] MEDS: aspirin 81 mg EC Tablet PO (08:25)
[2020-08-30] MEDS: thiamine 100 mg Tablet PO (08:25)
[2020-08-30] MEDS: pantoprazole DR 40 mg Tablet PO (08:25)
[2020-08-30] MEDS: docusate sodium 100 mg Capsule PO (08:26)
[2020-08-30] MEDS: hyDRALAzine 25 mg Tablet 75 MG PO ×2 (08:28→20:09)
[2020-08-30] MEDS: amlodipine 5 mg Tablet 10 MG PO (08:28)
[2020-08-30] MEDS: calcitriol 0.25 mcg Capsule 0.5 MCG PO (08:30)
[2020-08-30] MEDS: folic acid 1 mg Tablet PO (08:30)
[2020-08-30] MEDS: metoprolol tartrate 25 mg Tablet PO (08:30)
[2020-08-30] MEDS: calcium carbonate 500 mg Chew Tablet 1000 MG PO ×2 (10:15→21:54)
--- NOTE | 2020-08-30 11:18 | P.PN_ITS ---
Subjective Subjective: Interval history: The patient denies any active complaints. No significant events or changes. Denies headache, chest pain, shortness of breath, weakness. Medications: Reviewed: Yes Medication Review Details: Generic Name Dose Route Start Last Admin Trade Name Taeq PRN Reason Stop Dose Admin Albuterol/Ipratrop ium 3 ml 08/28/20 14:00 08/28/20 17:26 Ipratropium-Albu terol 3 Ml Neb INHALATION 3 ml Q4H PRN Administration SHORTNESS OF ELVIN TH Amlodipine Besylat e 10 mg 08/29/20 10:30 08/30/20 08:28 Amlodipine 5 Mg Tablet PO 10 mg DAILY YARELY Administration Aspirin 81 mg 08/30/20 09:00 08/30/20 08:25 Aspirin 81 Mg Ec Tablet PO 81 mg DAILY YARELY Administration Calcitriol 0.5 mcg 08/29/20 10:25 08/30/20 08:30 Calcitriol 0.25 Mcg Capsule PO 0.5 mcg DAILY YARELY Administration Calcium Carbonate 1,000 mg 08/28/20 14:30 08/30/20 10:15 Calcium Carbonat e 500 Mg Chew Tabl et PO 1,000 mg Q4H YARELY Administration Docusate Sodium 100 mg 08/29/20 18:00 08/30/20 08:26 Docusate Sodium 100 Mg Capsule PO 100 mg BID YARELY Administration Folic Acid 1 mg 08/29/20 18:00 08/30/20 08:30 Folic Acid 1 Mg Tablet PO 1 mg BIDWM YARELY Administration Hydralazine HCl 75 mg 08/28/20 15:00 08/30/20 08:28 Hydralazine 25 M g Tablet PO 75 mg TID YARELY Administration Lactulose 10 gm 08/29/20 10:21 08/29/20 17:47 Lactulose Oral L iq 20 Gm/30 Ml Udc PO 10 gm Q6H PRN Administration CONSTIPATION Magnesium Oxide 400 mg 08/29/20 18:00 08/30/20 08:24 Magnesium Oxide 400 Mg Tablet PO 400 mg BID YARELY Administration Metoprolol Tartrat e 25 mg 08/28/20 21:00 08/30/20 08:30 Metoprolol Tartr ate 25 Mg Tablet PO 25 mg BID@0900,2100 YARELY Administration Multivitamins Ther apeutic 1 tab 08/29/20 09:00 08/30/20 08:24 Multivitamin The rapeutic Tablet PO 1 tab DAILY YARELY Administration Pantoprazole Sodiu m 40 mg 08/29/20 09:00 08/30/20 08:[address] 40 Mg Tablet PO 40 mg DAILY YARELY Administration Sodium Bicarbonate 650 mg 08/29/20 09:00 08/30/20 08:24 Sodium Bicarbona te 650 Mg Tablet PO 650 mg QID YARELY Administration Thiamine Mononitra te 100 mg 08/29/20 09:00 08/30/20 08:25 Thiamine 100 Mg Tablet PO 100 mg DAILY YARELY Administration Vitals/I&O/Wt Last Vital Signs Temp 99.0 F 08/30/20 07:34 Pulse 84 08/30/20 08:55 Resp 16 08/30/20 08:55 BP 156/71 08/30/20 07:34 Pulse Ox 97 08/30/20 08:55 08/29/20 08/30/20 08/30/20 22:59 06:59 14:59 Intake Total 1320 / 2226.25 Output Total 240 / 1190 750 / 1940 Balance 1080 / 1036.25 -750 / 286.25 Physical Exam Narrative: EXAM NARRATIVE: Awake alert oriented. No acute distress. Mood and affect are appropriate. Responses are adequate. Skin is warm and dry. Pale. Moist mucous membranes. Neck is supple. No JVD Eyes PERRLA, extraocular muscles are intact Normal speech. Lungs bilateral wheezes. No respiratory distress Heart S1, S2, regular Abdomen soft, nontender, bowel sounds are present Extremities no edema cyanosis or calf tenderness bilaterally No focal muscle weakness. Cerebellar tests are within normal range. Data : 08/30/20 04:55 08/30/20 04:55 A&P Additional A&P Information 65-year-old male with past medical history of hypertension and COVID-19 infecti on about 2 months ago which did not require any treatments, was seen by his primary care physician for complaints of nausea. Blood testing revealed increased creatinine and new onset anemia. Acute kidney injury, severe. Possible end-stage renal disease. CT revealed possible chronic kidney disease. His creatinine several years ago was 0.9. No recent data is available. No evidence of hydronephrosis. The patient does not seem to be dehydrated. Appreciate nephrology team evaluation and advice. Will probably have tunneled catheter placed for dialysis today. I am consulting Dr. Vora. I appreciate his help. Anemia. Most likely related to #1. No evidence of hemolysis. Folic acid is deficient probably due to EtOH. Replacing. FOBT pending. Hypertensive urgency. Medications are adjusted. Currently BP is controlled. Hypocalcemia. Replacement per Dr. Savage. Hypomagnesemia. Replaced. QT prolongation on initial EKG. Probably due to hypomagnesemia. Resolved. Hyponatremia. Most likely related to COREY. Resolved. Metabolic acidosis. Most likely related to #1. Receiving bicarb. Improving. Continue management per pharmaceutical engineer. History of EtOH. Continue vitamin supplementation and CIWA protocol. No evidence of withdrawals at this time. Tobacco abuse. Counseling will be provided. Possible emphysema. No evidence of exacerbation. Right basilar opacity. Could be residual from his recent Covid pneumonia. Currently he does not have evidence of any uncontrolled infection. No fever. No shortness of breath. Chronic cough. Calcitonin level within normal range. 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 Subacute findings on CT. Left upper extremity numbness. Will start aspirin and statin. Will need to improve blood pressure control. Abnormal troponin. No ischemic changes on EKG. Denies chest pain or any other cardiac complaints. Most likely related to significant anemia in settings of acute kidney injury and malignant hypertension. Demand ischemia. Aspirin is ordered. Outpatient follow-up with esthetic dermatologist. CODE STATUS. Full code. DVT prophylaxis. We will start heparin after his procedure if okay from the surgical standpoint. The plan of care was discussed with the patient. He verbalized understanding and agreement. Attestations Medical Necessity Statement*: Preparing the patient for initiation of dialysis treatments. Coding Level of Care Code Acute Cook Helper Fruit for Maria Teresa Bruno
[2020-08-30 11:49] LABS: Add Urine Culture? No; Bacteria Urine TRACE /hpf; Bilirubin Urine Neg (Negative); Blood Urine Neg (Negative); Glucose Urine UA Norm (Normal); Ketones Urine Negative (Negative); Leukocyte Esterase Urine Negative (Negative); Nitrate Urine Negative (Negative); Protein Urine 3+ (Negative); Specific Gravity, Urine 1.005 (1.005-1.030); Squamous Epithelial Cell Urine 0-4 /hpf (0-5); Urine Appearance Clear (CLEAR); Urine Color Yellow (Yellow); Urobilinogen Urine Norm (Negative); WBC Urine 0-4 /hpf (0-5); pH Urine 5 (5-7)
--- NOTE | 2020-08-30 11:56 | ANES.PREANE2 ---
Pre-Anesthetic Assessment Pre-Anesthetic Assessment: Height/Weight: Height 1.75 m Weight 63.503 kg Temp Pulse Resp BP Pulse Ox 99.0 F 84 16 156/71 97 08/30/20 07:34 08/30/20 08:55 08/30/20 08:55 08/30/20 07:34 08/30/20 08:55 Preop Diagnosis: ESRD Proposed Procedure: tunneled dialysis catheter Familial anesthetic complications: none Was Beta [place] taken within 24 hours: N/A Was Clonidine taken within 24 hours: N/A Last intake: > 8 hrs Social: Social History: Alcohol and Tobacco Exam: Pre-Anes Outpt Exam: alert, oriented x 3 and regular rate & rhythm Additional Exam Findings (including area of procedure): B/L wheeze Airway: Cervical ROM: WNL MP: 4 Dentition: Full Pulmonary: Pulmonary: COPD Comments: covid 2 months ago ( mild) CV/HEM: CV/HEM: Anemia and HTN Comments: demand ischemia : : Chronic renal failure Musc/skel: Comments: ETOH Neuropsych: 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) Anesthetic Plan: ASA status: 4 Anesthesia: MAC Risk of > 500 ml blood loss (7ml/kg in children): No Meds/Allergies Current Medications: Current Medications Generic Name Dose Route Start Last Admin Trade Name Freq PRN Reason Stop Dose Admin Albuterol/Ipratrop ium 3 ml 08/28/20 14:00 08/28/20 17:26 Ipratropium-Albu terol 3 Ml Neb INHALATION 3 ml Q4H PRN Administration SHORTNESS OF ELVIN TH Amlodipine Besylat e 10 mg 08/29/20 10:30 08/30/20 08:28 Amlodipine 5 Mg Tablet PO 10 mg DAILY YARELY Administration Aspirin 81 mg 08/30/20 09:00 08/30/20 08:25 Aspirin 81 Mg Ec Tablet PO 81 mg DAILY YARELY Administration Calcitriol 0.5 mcg 08/29/20 10:25 08/30/20 08:30 Calcitriol 0.25 Mcg Capsule PO 0.5 mcg DAILY YARELY Administration Calcium Carbonate 1,000 mg 08/28/20 14:30 08/30/20 10:15 Calcium Carbonat e 500 Mg Chew Tabl et PO 1,000 mg Q4H YARELY Administration Docusate Sodium 100 mg 08/29/20 18:00 08/30/20 08:26 Docusate Sodium 100 Mg Capsule PO 100 mg BID YARELY Administration Folic Acid 1 mg 08/29/20 18:00 08/30/20 08:30 Folic Acid 1 Mg Tablet PO 1 mg BIDWM AYRELY Administration Hydralazine HCl 75 mg 08/28/20 15:00 08/30/20 08:28 Hydralazine 25 M g Tablet PO 75 mg TID YARELY Administration Lactulose 10 gm 08/29/20 10:21 08/29/20 17:47 Lactulose Oral L iq 20 Gm/30 Ml Udc PO 10 gm Q6H PRN Administration CONSTIPATION Magnesium Oxide 400 mg 08/29/20 18:00 08/30/20 08:24 Magnesium Oxide 400 Mg Tablet PO 400 mg BID [facility] Administration Metoprolol Tartrat e 25 mg 08/28/20 21:00 08/30/20 08:30 Metoprolol Tartr ate 25 Mg Tablet PO 25 mg BID@0900,2100 [facility] Administration Multivitamins Ther apeutic 1 tab 08/29/20 09:00 08/30/20 08:24 Multivitamin The rapeutic Tablet PO 1 tab DAILY [facility] Administration Pantoprazole Sodiu m 40 mg 08/29/20 09:00 08/30/20 08:[address] 40 Mg Tablet PO 40 mg DAILY YARELY Administration Sodium Bicarbonate 650 mg 08/29/20 09:00 08/30/20 08:24 Sodium Bicarbona te 650 Mg Tablet PO 650 mg QID YARELY Administration Thiamine Mononitra te 100 mg 08/29/20 09:00 08/30/20 08:25 Thiamine 100 Mg Tablet PO 100 mg DAILY YARELY Administration Additional Medication Information: Generic Name Dose Route Start Last Admin Trade Name Freq PRN Reason Stop Dose Admin Albuterol/Ipratrop ium 3 ml 08/28/20 14:00 08/28/20 17:26 Ipratropium-Albu terol 3 Ml Neb INHALATION 3 ml Q4H PRN Administration SHORTNESS OF ELVIN TH Amlodipine Besylat e 10 mg 08/29/20 10:30 08/30/20 08:28 Amlodipine 5 Mg Tablet PO 10 mg DAILY YARELY Administration Aspirin 81 mg 08/30/20 09:00 08/30/20 08:25 Aspirin 81 Mg Ec Tablet PO 81 mg DAILY YARELY Administration Calcitriol 0.5 mcg 08/29/20 10:25 08/30/20 08:30 Calcitriol 0.25 Mcg Capsule PO 0.5 mcg DAILY YARELY Administration Calcium Carbonate 1,000 mg 08/28/20 14:30 08/30/20 10:15 Calcium Carbonat e 500 Mg Chew Tabl et PO 1,000 mg Q4H YARELY Administration Docusate Sodium 100 mg 08/29/20 18:00 08/30/20 08:26 Docusate Sodium 100 Mg Capsule PO 100 mg BID YARELY Administration Folic Acid 1 mg 08/29/20 18:00 08/30/20 08:30 Folic Acid 1 Mg Tablet PO 1 mg BIDWM YARELY Administration Hydralazine HCl 75 mg 08/28/20 15:00 08/30/20 08:28 Hydralazine 25 M g Tablet PO 75 mg TID YARELY Administration Lactulose 10 gm 08/29/20 10:21 08/29/20 17:47 Lactulose Oral L iq 20 Gm/30 Ml Udc PO 10 gm Q6H PRN Administration CONSTIPATION Magnesium Oxide 400 mg 08/29/20 18:00 08/30/20 08:24 Magnesium Oxide 400 Mg Tablet PO 400 mg BID YARELY Administration Metoprolol Tartrat e 25 mg 08/28/20 21:00 08/30/20 08:30 Metoprolol Tartr ate 25 Mg Tablet PO 25 mg BID@0900,2100 YARELY Administration Multivitamins Ther apeutic 1 tab 08/29/20 09:00 08/30/20 08:24 Multivitamin The rapeutic Tablet PO 1 tab DAILY YARELY Administration Pantoprazole Sodiu m 40 mg 08/29/20 09:00 08/30/20 08:[address] 40 Mg Tablet PO 40 mg DAILY YARELY Administration Sodium Bicarbonate 650 mg 08/29/20 09:00 08/30/20 08:24 Sodium Bicarbona te 650 Mg Tablet PO 650 mg QID YARELY Administration Thiamine Mononitra te 100 mg 08/29/20 09:00 08/30/20 08:25 Thiamine 100 Mg Tablet PO 100 mg DAILY YARELY Administration PFSH Anesthesia PFSH: Medical History Hypertension Nicotine abuse Social History Smoking and tobacco status: current every day smoker Alcohol intake: current Data Anesthesia CBC & Chem 7: 08/30/20 04:55 08/30/20 04:55 Other Labs: Laboratory Results - last 48 hr 08/28/20 08/28/20 08/28/20 10:39 10:44 10:44 WBC RBC Hgb Hct MCV MCH MCHC RDW Plt Count MPV Neut % (Auto) Lymph % (Auto) [place] % (Auto) Eos % (Auto) Baso % (Auto) Neut # (Auto) Lymph # (Auto) [place] # (Auto) Eos # (Auto) Baso # (Auto) Nucleated RBC % (auto) Nucleated RBCs # Haptoglobin 233.0 H Sodium Potassium Chloride Carbon Dioxide Anion Gap BUN Creatinine GFR Calculation Glucose Calculated Osmolality Lactate Uric Acid Calcium Ionized Calcium Phillip Phosphorus Magnesium Iron 54 L TIBC 226 % Saturation 23.8 Unsat Iron Binding 172 Transferrin 181 L Total Bilirubin AST ALT Alkaline Phosphatase Creatine Kinase Troponin T Baseline Troponin T 120 Minute Delta Troponin T Troponin T Hi Sens 6Hr Troponin T Hi Sens 6Hr Delta Total Protein Albumin Globulin Kvbng-8-Pzphwfbjc Juvjf-2-Uhuzvxmno Nasc-0-Plhzjcfv Ehcw-8-Ggmiuoag Gamma Globulins Abnorm Protein Band 1 Triglycerides Cholesterol LDL Cholesterol, Calc HDL Cholesterol LDL/HDL Ratio Cholesterol/HDL Ratio Vitamin B12 363 25-OH Vitamin D Total Folate Procalcitonin 0.16 TSH PTH Intact Calcium (PTH Intact) Urine Color Yellow Urine Appearance Clear Urine pH 5 Ur Specific [place] 1.005 Urine Protein 3+ H Urine Glucose (UA) Norm Urine Ketones Negative Urine Blood Neg Urine Nitrate Negative Urine Bilirubin Neg Urine Urobilinogen Norm Ur Leukocyte Esterase Negative Urine RBC 5-10 H Urine WBC 0-4 H Ur Squamous Epith Cells 0-4 H Amorphous Sediment Not Reportable Urine Bacteria Trace Urine Creatinine 58 U Abnormal Prot Band 2 U Abnormal Prot Band 3 Pro Electrophoresis Int Complement C3 Complement C4 Blood Type Rho(D) Type Antibody Screen 08/28/20 08/28/20 08/28/20 10:44 11:19 15:15 WBC RBC Hgb Hct MCV MCH MCHC RDW Plt Count MPV Neut % (Auto) Lymph % (Auto) [place] % (Auto) Eos % (Auto) Baso % (Auto) Neut # (Auto) Lymph # (Auto) [place] # (Auto) Eos # (Auto) Baso # (Auto) Nucleated RBC % (auto) Nucleated RBCs # Haptoglobin Sodium Potassium Chloride Carbon Dioxide Anion Gap BUN Creatinine GFR Calculation Glucose Calculated Osmolality Lactate 0.6 Uric Acid Calcium Ionized Calcium Phillip Phosphorus Magnesium Iron TIBC % Saturation Unsat Iron Binding Transferrin Total Bilirubin AST ALT Alkaline Phosphatase Creatine Kinase Troponin T Baseline Troponin T 120 Minute Delta Troponin T Troponin T Hi Sens 6Hr Troponin T Hi Sens 6Hr Delta Total Protein Albumin Globulin Lkukl-3-Krojhqrhu Yxnwd-5-Yesvyfxjt Tqei-8-Icbrljlq Lyzh-5-Cswhxfhx Gamma Globulins Abnorm Protein Band 1 Triglycerides Cholesterol LDL Cholesterol, Calc HDL Cholesterol LDL/HDL Ratio Cholesterol/HDL Ratio Vitamin B12 25-OH Vitamin D Total Folate 5.1 Procalcitonin TSH PTH Intact Calcium (PTH Intact) Urine Color Urine Appearance Urine pH Ur Specific [place] Urine Protein Urine Glucose (UA) Urine Ketones Urine Blood Urine Nitrate Urine Bilirubin Urine Urobilinogen Ur Leukocyte Esterase Urine RBC Urine WBC Ur Squamous Epith Cells Amorphous Sediment Urine Bacteria Urine Creatinine U Abnormal Prot Band 2 U Abnormal Prot Band 3 Pro Electrophoresis Int Complement C3 Complement C4 Blood Type B Positive Rho(D) Type Positive / 4+ Antibody Screen Negative 08/28/20 08/28/20 08/28/20 15:15 15:15 15:15 WBC RBC Hgb Hct MCV MCH MCHC RDW Plt Count MPV Neut % (Auto) Lymph % (Auto) [place] % (Auto) Eos % (Auto) Baso % (Auto) Neut # (Auto) Lymph # (Auto) [place] # (Auto) Eos # (Auto) Baso # (Auto) Nucleated RBC % (auto) Nucleated RBCs # Haptoglobin Sodium Potassium Chloride Carbon Dioxide Anion Gap BUN Creatinine GFR Calculation Glucose Calculated Osmolality Lactate Uric Acid 8.5 H Calcium Ionized Calcium Phillip Phosphorus 4.1 Magnesium 0.5 L* Iron TIBC % Saturation Unsat Iron Binding Transferrin Total Bilirubin AST ALT Alkaline Phosphatase Creatine Kinase 191 Troponin T Baseline Troponin T 120 Minute Delta Troponin T Troponin T Hi Sens 6Hr Troponin T Hi Sens 6Hr Delta Total Protein 7.2 Albumin 3.5 L Globulin Qtzrz-1-Ihxrlvrgp 0.4 H Okbyz-6-Vtiqdrais 0.9 Nksh-8-Xxpyjlgj 0.4 Ofyc-0-Ljncgnph 0.7 H Gamma Globulins 1.4 Abnorm Protein Band 1 Not Reportable Triglycerides Cholesterol LDL Cholesterol, Calc HDL Cholesterol LDL/HDL Ratio Cholesterol/HDL Ratio Vitamin B12 25-OH Vitamin D Total 6 L Folate Procalcitonin TSH 3.36 PTH Intact 124.0 H Calcium (PTH Intact) 4.7 L* Urine Color Urine Appearance Urine pH Ur Specific [place] Urine Protein Urine Glucose (UA) Urine Ketones Urine Blood Urine Nitrate Urine Bilirubin Urine Urobilinogen Ur Leukocyte Esterase Urine RBC Urine WBC Ur Squamous Epith Cells Amorphous Sediment Urine Bacteria Urine Creatinine U Abnormal Prot Band 2 Not Reportable U Abnormal Prot Band 3 Not Reportable Pro Electrophoresis Int See note Complement C3 112 Complement C4 19 Blood Type Rho(D) Type Antibody Screen 08/28/20 08/28/20 08/28/20 15:15 17:05 18:55 WBC RBC Hgb Hct MCV MCH MCHC RDW Plt Count MPV Neut % (Auto) Lymph % (Auto) [place] % (Auto) Eos % (Auto) Baso % (Auto) Neut # (Auto) Lymph # (Auto) [place] # (Auto) Eos # (Auto) Baso # (Auto) Nucleated RBC % (auto) Nucleated RBCs # Haptoglobin Sodium Potassium Chloride Carbon Dioxide Anion Gap BUN Creatinine GFR Calculation Glucose Calculated Osmolality Lactate Uric Acid Calcium Ionized Calcium Phillip Phosphorus Magnesium Iron TIBC % Saturation Unsat Iron Binding Transferrin Total Bilirubin AST ALT Alkaline Phosphatase Creatine Kinase Troponin T Baseline 38 H Troponin T 120 Minute 34.15 H Delta Troponin T -3.85 L Troponin T Hi Sens 6Hr Troponin T Hi Sens 6Hr Delta Total Protein Albumin Globulin Cjipg-9-Sjunermfj Ixvmc-2-Srnoecwpa Uktk-6-Rdoazail Lkxm-5-Pcizmevi Gamma Globulins Abnorm Protein Band 1 Triglycerides Cholesterol LDL Cholesterol, Calc HDL Cholesterol LDL/HDL Ratio Cholesterol/HDL Ratio Vitamin B12 25-OH Vitamin D Total Folate Procalcitonin TSH PTH Intact Calcium (PTH Intact) Urine Color Straw Urine Appearance Clear Urine pH 5 Ur Specific [place] 1.010 Urine Protein 3+ H Urine Glucose (UA) Norm Urine Ketones Negative Urine Blood 3+ H Urine Nitrate Negative Urine Bilirubin Neg Urine Urobilinogen Norm Ur Leukocyte Esterase Negative Urine RBC 5-10 H Urine WBC 5-10 H Ur Squamous Epith Cells 0-4 H Amorphous Sediment Not Reportable Urine Bacteria 1+ H Urine Creatinine U Abnormal Prot Band 2 U Abnormal Prot Band 3 Pro Electrophoresis Int Complement C3 Complement C4 Blood Type Rho(D) Type Antibody Screen 08/28/20 08/29/20 08/29/20 21:34 04:52 04:52 WBC 6.4 RBC 2.40 L Hgb 7.8 L Hct 24.0 L MCV 100.0 H MCH 32.5 MCHC 32.5 RDW 13.0 Plt Count 328 MPV 10.4 Neut % (Auto) 73.7 Lymph % (Auto) 12.6 [place] % (Auto) 8.4 Eos % (Auto) 3.7 Baso % (Auto) 0.8 Neut # (Auto) 4.72 Lymph # (Auto) 0.8 [place] # (Auto) 0.5 Eos # (Auto) 0.2 Baso # (Auto) 0.1 Nucleated RBC % (auto) 0 Nucleated RBCs # 0.0 Haptoglobin Sodium Cancelled Potassium Cancelled Chloride Cancelled Carbon Dioxide Cancelled Anion Gap Cancelled BUN Cancelled Creatinine Cancelled GFR Calculation Cancelled Glucose Cancelled Calculated Osmolality Cancelled Lactate Uric Acid Calcium Cancelled Ionized Calcium Phillip Phosphorus 4.5 Magnesium 1.0 L Iron TIBC % Saturation Unsat Iron Binding Transferrin Total Bilirubin AST ALT Alkaline Phosphatase Creatine Kinase Troponin T Baseline Troponin T 120 Minute Delta Troponin T Troponin T Hi Sens 6Hr 42.26 H Troponin T Hi Sens 6Hr Delta 4.26 Total Protein Albumin Globulin Xlnqk-4-Wqfxzrrbn Jayro-1-Vqafhlqtr Zibf-1-Ystmstma Qzxs-0-Qpxyebxb Gamma Globulins Abnorm Protein Band 1 Triglycerides Cholesterol LDL Cholesterol, Calc HDL Cholesterol LDL/HDL Ratio Cholesterol/HDL Ratio Vitamin B12 25-OH Vitamin D Total Folate Procalcitonin TSH 2.06 PTH Intact Calcium (PTH Intact) Urine Color Urine Appearance Urine pH Ur Specific [place] Urine Protein Urine Glucose (UA) Urine Ketones Urine Blood Urine Nitrate Urine Bilirubin Urine Urobilinogen Ur Leukocyte Esterase Urine RBC Urine WBC Ur Squamous Epith Cells Amorphous Sediment Urine Bacteria Urine Creatinine U Abnormal Prot Band 2 U Abnormal Prot Band 3 Pro Electrophoresis Int Complement C3 Complement C4 Blood Type Rho(D) Type Antibody Screen 08/29/20 08/29/20 08/29/20 04:52 04:52 10:45 WBC RBC Hgb Hct MCV MCH MCHC RDW Plt Count MPV Neut % (Auto) Lymph % (Auto) [place] % (Auto) Eos % (Auto) Baso % (Auto) Neut # (Auto) Lymph # (Auto) [place] # (Auto) Eos # (Auto) Baso # (Auto) Nucleated RBC % (auto) Nucleated RBCs # Haptoglobin Sodium 139 Potassium 4.4 Chloride 106 Carbon Dioxide 11 L Anion Gap 26.4 H BUN 88 H* Creatinine 5.5 H GFR Calculation 10.5 L Glucose 73 Calculated Osmolality 313 H Lactate Uric Acid Calcium 5.3 L* D Ionized Calcium Phillip 0.7 L* Phosphorus Magnesium Iron TIBC % Saturation Unsat Iron Binding Transferrin Total Bilirubin 0.2 AST 17 ALT 8 Alkaline Phosphatase 62 Creatine Kinase Troponin T Baseline Troponin T 120 Minute Delta Troponin T Troponin T Hi Sens 6Hr Troponin T Hi Sens 6Hr Delta Total Protein 6.0 L D Albumin 3.3 L Globulin 2.7 Malzm-8-Rtbviqhyc Xfkdc-3-Xiupbustu Dwfg-2-Dpatpsep Efvk-6-Fjaeural Gamma Globulins Abnorm Protein Band 1 Triglycerides 131 Cholesterol 114 LDL Cholesterol, Calc 45 L HDL Cholesterol 43 L LDL/HDL Ratio 1.05 Cholesterol/HDL Ratio 2.65 Vitamin B12 25-OH Vitamin D Total Folate Procalcitonin TSH PTH Intact Calcium (PTH Intact) Urine Color Urine Appearance Urine pH Ur Specific [place] Urine Protein Urine Glucose (UA) Urine Ketones Urine Blood Urine Nitrate Urine Bilirubin Urine Urobilinogen Ur Leukocyte Esterase Urine RBC Urine WBC Ur Squamous Epith Cells Amorphous Sediment Urine Bacteria Urine Creatinine U Abnormal Prot Band 2 U Abnormal Prot Band 3 Pro Electrophoresis Int Complement C3 Complement C4 Blood Type Rho(D) Type Antibody Screen 08/29/20 08/30/20 08/30/20 18:06 04:55 04:55 WBC 8.2 RBC 2.34 L Hgb 7.7 L Hct 23.0 L MCV 98.3 H MCH 32.9 MCHC 33.5 RDW 13.0 Plt Count 323 MPV 10.3 Neut % (Auto) 73.2 Lymph % (Auto) 12.5 [place] % (Auto) 7.6 Eos % (Auto) 5.2 Baso % (Auto) 0.7 Neut # (Auto) 6.02 Lymph # (Auto) 1.0 [place] # (Auto) 0.6 Eos # (Auto) 0.4 Baso # (Auto) 0.1 Nucleated RBC % (auto) 0 Nucleated RBCs # 0.0 Haptoglobin Sodium Potassium Chloride Carbon Dioxide Anion Gap BUN Creatinine GFR Calculation Glucose Calculated Osmolality Lactate Uric Acid Calcium Ionized Calcium Phillip 0.8 L Phosphorus Magnesium 2.0 1.9 Iron TIBC % Saturation Unsat Iron Binding Transferrin Total Bilirubin AST ALT Alkaline Phosphatase Creatine Kinase Troponin T Baseline Troponin T 120 Minute Delta Troponin T Troponin T Hi Sens 6Hr Troponin T Hi Sens 6Hr Delta Total Protein Albumin Globulin Ouumc-8-Qxsdgaans Cxndc-5-Kprxrxlna Szlb-8-Rvsqfkra Mcsb-1-Ygbhhuux Gamma Globulins Abnorm Protein Band 1 Triglycerides Cholesterol LDL Cholesterol, Calc HDL Cholesterol LDL/HDL Ratio Cholesterol/HDL Ratio Vitamin B12 25-OH Vitamin D Total Folate Procalcitonin TSH PTH Intact Calcium (PTH Intact) Urine Color Urine Appearance Urine pH Ur Specific [place] Urine Protein Urine Glucose (UA) Urine Ketones Urine Blood Urine Nitrate Urine Bilirubin Urine Urobilinogen Ur Leukocyte Esterase Urine RBC Urine WBC Ur Squamous Epith Cells Amorphous Sediment Urine Bacteria Urine Creatinine U Abnormal Prot Band 2 U Abnormal Prot Band 3 Pro Electrophoresis Int Complement C3 Complement C4 Blood Type Rho(D) Type Antibody Screen 08/30/20 04:55 WBC RBC Hgb Hct MCV MCH MCHC RDW Plt Count MPV Neut % (Auto) Lymph % (Auto) [place] % (Auto) Eos % (Auto) Baso % (Auto) Neut # (Auto) Lymph # (Auto) [place] # (Auto) Eos # (Auto) Baso # (Auto) Nucleated RBC % (auto) Nucleated RBCs # Haptoglobin Sodium 134 L Potassium 3.9 Chloride 100 Carbon Dioxide 17 L Anion Gap 20.9 H BUN 79 H Creatinine 5.2 H GFR Calculation 11.2 L Glucose 98 Calculated Osmolality Lactate Uric Acid Calcium 5.8 L* Ionized Calcium Phillip Phosphorus 3.4 Magnesium Iron TIBC % Saturation Unsat Iron Binding Transferrin Total Bilirubin AST ALT Alkaline Phosphatase Creatine Kinase Troponin T Baseline Troponin T 120 Minute Delta Troponin T Troponin T Hi Sens 6Hr Troponin T Hi Sens 6Hr Delta Total Protein Albumin 3.2 L Globulin Ymcva-7-Psxxzpcjh Uffsg-2-Agowxxuaf Nnlr-5-Jqsgjvmh Sral-4-Djokwccj Gamma Globulins Abnorm Protein Band 1 Triglycerides Cholesterol LDL Cholesterol, Calc HDL Cholesterol LDL/HDL Ratio Cholesterol/HDL Ratio Vitamin B12 25-OH Vitamin D Total Folate Procalcitonin TSH PTH Intact Calcium (PTH Intact) Urine Color Urine Appearance Urine pH Ur Specific [place] Urine Protein Urine Glucose (UA) Urine Ketones Urine Blood Urine Nitrate Urine Bilirubin Urine Urobilinogen Ur Leukocyte Esterase Urine RBC Urine WBC Ur Squamous Epith Cells Amorphous Sediment Urine Bacteria Urine Creatinine U Abnormal Prot Band 2 U Abnormal Prot Band 3 Pro Electrophoresis Int Complement C3 Complement C4 Blood Type Rho(D) Type Antibody Screen Cardiac Studies: No Data to Display
--- NOTE | 2020-08-30 11:58 | PC.CHAP ---
Pastoral Care Encounter/Spiritual Assessment Type of Contact [] Declined client renewal specialist visit [] Patient/Family/Request visit [] Outpatient visit [] Follow-up visit [] Physician referral [] Code/Alert [xx] Routine visit [] Staff referral [] Actively dying [] Patient sleeping [] Family support [] [] Out of room [] Palliative care [] [] Receiving care in room [] Pre-surgical visit [] Trauma [] Long length of stay [] ICU visit [] Other: Relational/Emotional Strength [xx] Patient feels connected with others/family/visitors/staff [] Distress [] Loneliness/isolation [] Abandonment Spirituality of Patient [xx] Person of Jessica [] Attends Buddhism of their Jessica [xx] Believes in Prayer [] Reads Bible or Mandaeism materials [] There are Spiritual issues to be addressed Waste Salvager Interventions [xx] Prayer [xx] Active listening [xx] Non-anxious presence [] Spiritual/emotional support [] Crisis/trauma care [] Spiritual counseling [] Bereavement support [] Provided bereavement packet [] Provided Bible/devotional materials [] Provided toy/stuffed animal, coloring book to patient or family member [] Provided Communion [] Anointing/[place] [] Salvation [xx] Completed spiritual assessment [] Other: Impact on Illness or Injury [] Angry [] Fearful [] Anxious [] Often cries [] Exhaustion [] Unable to work [] Unable to attend judaism [] Unable to walk/stand [] Unable to read [] Unable to drive [] Unable to eat/drink [] Unable to sleep [] Unable to be with family [] Patient intubated [] Other: Summary Patient was in considerable physical discomfort. He wanted prayer but not regular visit. Time spent with patient 3 minutes
[2020-08-30 11:59] LABS: Urine Random Sodium 76 mmol/L
[2020-08-30] MEDS: sodium chloride 0.9% 1,000 ML 30 ML IV (12:28)
--- NOTE | 2020-08-30 12:38 | SC_ITS ---
WS: [id number] C-arm fluoroscopy of the right chest for dialysis catheter placement, 08/30/2020 Clinical Data: intra-op OR 6 Comparison: Portable chest, 08/28/2020. Findings: The right dialysis catheter has been inserted into the right internal jugular vein and ends in the scott perior vena cava. SC/C-arm [place] for CVA [id number] Impression: Satisfactory placement of a right dialysis catheter.
--- NOTE | 2020-08-30 12:42 | PM.CONSULT ---
Providers/Reason For Consult Consulting Physican/Specialty*: Braydon Carrington Reason for Consult*: ESRD requiring dialysis Attending Physician: Braydon Carrington Primary Care Provider: Lauren Carranza MD History of Present Illness History of Present Illness Jimmy Hernandez is a 65 year old male with prior history of COVID-19 and hypertension who was admitted for nausea and was noted to be anemic with elevated creatinine. Patient is now developed acute kidney injury with possible end-stage renal disease requiring long-term dialysis. No prior history of clavicle fracture or central line placement Review of Systems General: Reports: 10 or more systems reviewed and unremarkable except in HPI and below Meds/Allergies Home Medications and Allergies Home Medications Medication Instructions Recorded Confirmed Last Taken Type metoprolol tartrate 25 mg tablet 25 mg PO BID #180 tab 03/21/20 08/28/20 08/28/20 Rx lisinopril 20 mg tablet 20 mg PO DAILY #90 tab 03/26/20 08/28/20 08/28/20 Rx omeprazole 40 mg capsule,delayed 40 mg PO DAILY #30 cap 08/27/20 08/28/20 08/28/20 Rx release ondansetron HCl 4 mg tablet 4 mg PO Q8H PRN #30 tab 08/27/20 08/28/20 Unknown Rx Allergies Allergy/AdvReac Type Severity Reaction Status Date / Time Sulfa (Sulfonamide Allergy swelling Verified 08/27/20 07:46 Antibiotics) Current Medications Current Medications Generic Name Dose Route Start Last Admin Trade Name Freq PRN Reason Stop Dose Admin Albuterol/Ipratropium 3 ml 08/28/20 14:00 08/28/20 17:26 Ipratropium-Albuterol 3 Ml Neb INHALATION 3 ml Q4H PRN Administration SHORTNESS OF BREATH Amlodipine Besylate 10 mg 08/29/20 10:30 08/30/20 08:28 Amlodipine 5 Mg Tablet PO 10 mg DAILY YARELY Administration Aspirin 81 mg 08/30/20 09:00 08/30/20 08:25 Aspirin 81 Mg Ec Tablet PO 81 mg DAILY YARELY Administration Calcitriol 0.5 mcg 08/29/20 10:25 08/30/20 08:30 Calcitriol 0.25 Mcg Capsule PO 0.5 mcg DAILY YARELY Administration Calcium Carbonate 1,000 mg 08/28/20 14:30 08/30/20 10:15 Calcium Carbonate 500 Mg Chew Tablet PO 1,000 mg Q4H YAREYL Administration Docusate Sodium 100 mg 08/29/20 18:00 08/30/20 08:26 Docusate Sodium 100 Mg Capsule PO 100 mg BID YARELY Administration Folic Acid 1 mg 08/29/20 18:00 08/30/20 08:30 Folic Acid 1 Mg Tablet PO 1 mg BIDWM YARELY Administration Hydralazine HCl 75 mg 08/28/20 15:00 08/30/20 08:28 Hydralazine 25 Mg Tablet PO 75 mg TID YARELY Administration Sodium Chloride 1,000 mls @ 30 mls/hr 08/30/20 12:15 08/30/20 12:28 Sodium Chloride 0.9% IV 30 mls/hr .Q24H YARELY Administration Lactulose 10 gm 08/29/20 10:21 08/29/20 17:47 Lactulose Oral Liq 20 Gm/30 Ml Udc PO 10 gm Q6H PRN Administration CONSTIPATION Magnesium Oxide 400 mg 08/29/20 18:00 08/30/20 08:24 Magnesium Oxide 400 Mg Tablet PO 400 mg BID YARELY Administration Metoprolol Tartrate 25 mg 08/28/20 21:00 08/30/20 08:30 Metoprolol Tartrate 25 Mg Tablet PO 25 mg BID@0900,2100 YARELY Administration Multivitamins Therapeutic 1 tab 08/29/20 09:00 08/30/20 08:24 Multivitamin Therapeutic Tablet PO 1 tab DAILY YARELY Administration Pantoprazole Sodium 40 mg 08/29/20 09:00 08/30/20 08:[address] 40 Mg Tablet PO 40 mg DAILY YARELY Administration Sodium Bicarbonate 650 mg 08/29/20 09:00 08/30/20 08:24 Sodium Bicarbonate 650 Mg Tablet PO 650 mg QID YARELY Administration Thiamine Mononitrate 100 mg 08/29/20 09:00 08/30/20 08:25 Thiamine 100 Mg Tablet PO 100 mg DAILY YARELY Administration PFSH Acute PFSH: Medical History Hypertension Nicotine abuse Social History Smoking and tobacco status: current every day smoker Alcohol intake: current Vitals/I&O/Wt Last Vital Signs Temp 99.3 F 04/02/21 12:15 Pulse 91 08/30/20 12:15 Resp 18 08/30/20 12:15 BP 165/78 08/30/20 12:15 Pulse Ox 97 08/30/20 12:15 08/29/20 08/30/20 08/30/20 22:59 06:59 14:59 Intake Total 1320 / 2226.25 70 / 70 Output Total 240 / 1940 750 / 1940 Balance 1080 / 286.25 -750 / 286.25 70 / 70 Physical Exam Narrative: EXAM NARRATIVE: HEENT: Normocephalic Eye: Sclera /conjunctiva normal Respiratory and chest: Bilateral clear breath sounds on auscultation Cardiovascular: Normal S1 and S2 heart sounds Abdomen: Soft to palpation Neurological: Oriented to place person and time Skin: Intact, no lesions appreciated on gross exam A&P Assessment and plan (1) Acute kidney injury: 65-year-old male with acute kidney injury with possible end-stage renal disease requiring dialysis Plan for placement of tunneled hemodialysis catheter under MAC Procedure, risks, benefits and alternatives have been discussed with the patient who wishes to proceed with surgery. Status: Acute Coding Level of Care Code Acute Circular Knife Cutter Machine for dayan Bruno Diagnoses Acute kidney injury N17.9
[2020-08-30 13:03] LABS: Creatinine Urine, Random 58 mg/dL (39-259)
[2020-08-30] MEDS: lidocaine 1% INJ 20 mL INJECTION (13:09)
[2020-08-30] MEDS: heparin, porcine 1,000 unit/mL INJ 10 mL 6000 UNIT HE (13:22)
[2020-08-30 13:27] LABS: Urine Protein Random 189 mg/dL
--- NOTE | 2020-08-30 16:44 | PM.OP ---
Operative Report Date of procedure: August 30, 2020 Pre-op Diagnosis: ESRD Post-op diagnosis: same Procedure Done: Placement of 23 cm long 16 [place] AshSplit tunneled hemodialysis catheter Fluoroscopic guidance and interpretation for placement of catheter Ultrasound guidance to access the right internal jugular vein Pathology: none sent Surgeon: Brian Vora Anesthesia: MAC Condition: stable Disposition: PACU Procedure: The patient was taken to the operating room and placed under MAC after IV antibiotic had been administered. The chest and neck were prepped and draped in a sterile manner bilaterally. An ultrasound of the right internal jugular vein revealed patent flow, no thrombus identified. Using introducer needle the internal jugular vein on the right side was accessed and guidewire passed into the right atrium under fluoroscopy. Under fluoroscopy the location for the dialysis catheter was marked. Using 11 blade a skin incision was extended at the vein access site as well as the previously marked location on the right chest wall. The dialysis catheter was attached to the tunneler and passed subcutaneously, exiting at the venous access site. Serial dilators were passed over the guidewire under fluoroscopy. Finally the dilator peel-away sheath was passed over the guidewire and the inner dilator and guidewire was removed and the dialysis catheter was introduced into the right internal jugular vein as the peel-away sheath was removed. The tip of the catheter was noted to be in the right atrium. Both ports of the catheter temo blood and flushed easily. The catheter was sutured to the skin using 2-0 Prolene and the venous access site was closed with 4-0 Monocryl and Dermabond. A total of 5 mL of 1:10,000 heparin was injected into the 2 ports under dialysis catheter. Fluoroscopic guidance and interpretation for passage of guidewire and dilator and placement of catheter in the right atrium.
--- NOTE | 2020-08-30 18:00 | ANE.PACU2 ---
Inpatient post-anesthesia follow up: Airway intact: Yes Vital signs: Temperature 98.8 F Pulse Rate [Monito r] 86 Pulse Rate 87 Respiratory Rate 16 Blood Pressure [Ri ght Arm] 187/101 Blood Pressure 156/70 Pulse Oximetry 94 Oxygen Delivery Me thod Room Air Oxygen Flow Rate 2 Fraction of Inspir ed Oxygen Hydration adequate: Yes Nausea and vomiting: No Pain level: 2 Mental status: Baseline
[2020-08-30 18:45] LABS: Hepatitis B Surface AB 3.5 (11.5-1000); Hepatitis B Surface Antigen Non-Reactive (Nonreactive); Hepatitis C Virus Antibody Non-Reactive (Nonreactive)
[2020-08-30] MEDS: acetaminophen 325 mg Tablet 650 MG PO (20:09)
[2020-08-31] VITALS (9 sets, daily range): BP systolic 156–179; BP diastolic 70–85; PULSE 87–101; RESP 16–18; TEMP 36.8–37.1; O2SAT 93–95
[2020-08-31] MEDS: calcium carbonate 500 mg Chew Tablet 1000 MG PO ×4 (02:25→20:28)
[2020-08-31] MEDS: metoprolol tartrate 25 mg Tablet PO ×3 (02:26→20:28)
--- NOTE | 2020-08-31 07:38 | PM.PN ---
Subjective Subjective: Interval history: mild discomfort at PC insertion site, no other complaints Medications: Reviewed: Yes Vitals/I&O/Wt Last Vital Signs Temp 98.8 F 08/31/20 07:11 Pulse 87 08/31/20 07:11 Resp 16 08/31/20 07:11 BP 179/85 08/31/20 07:11 Pulse Ox 94 08/31/20 07:11 08/30/20 08/31/20 08/31/20 22:59 06:59 14:59 Intake Total 380 / 500 240 / 740 Output Total 425 / 425 540 / 965 250 / 250 Balance -45 / 75 -300 / -225 -250 / -250 Physical Exam Const: COMMON NORMALS: no acute distress GENERAL APPEARANCE: cooperative Resp: COMMON NORMALS: normal respiratory effort AUSCULTATION: rhonchi Cardio: COMMON NORMALS: regular rate and regular rhythm RATE: regular rate RHYTHM: regular rhythm Extremity: COMMON NORMALS: no pedal edema Data : 08/30/20 04:55 08/31/20 07:03 Other Labs: 25(OH)D 6, Ca 7.7 urine protein/Cr ratio 3260 mg/g A&P Additional A&P Information Impression: 1. Chronic kidney disease, nephrotic range proteinuria, duration unknown. Imaging reports mild renal cortical thinning and atrophy. [facility] from [facility] show serum Cr 1.3 mg/dL in May 2018. Recent COVID infection, not requiring hospitalization. 2. Metabolic acidosis, improved 3. Hypocalcemia, improving, low vitamin D 4. hypomagnesemia - resolved, repeat Mg level 4. Anemia, iron replete 5. Hypertension, no evidence VERNON on doppler, relatively well-controlled - resume ACEi, change hydralazine to prn for now Recommend: HD today. 2 hours, 500 ml UF, 3K bath. continue ergocalciferol 50,000iu weekly x 8 weeks, continue calcitriol, reduce oral calcium carbonate 1000 mg TID, stop oral sodium bicarbonate. SQ epogen received yesterday Renal biopsy can be arranged as outpatient if not done at [facility] [place]. Needs outpatient dialysis unit placement. Next HD [facility] 09/02/2020 Attestations Medical Necessity Statement*: see above Time Spent in Patient Care: Greater than 35 minutes Coding Level of Care Code Acute Lead Database Developer for Chg Damion
[2020-08-31 07:48] LABS: Anion Gap 16.7 (5-19); Blood Urea Nitrogen 72 mg/dL (8-23); Calcium 7.7 mg/dL (8.5-10.5); Carbon Dioxide 19 mmol/L (22-29); Chloride 104 mmol/L (98-107); Glomerular Filtration Rate 11.7 mL/min (90-130); Glucose 119 mg/dL (65-115); Magnesium 1.8 mg/dL (1.7-2.3); Osmolality Calculated 304 mOsm/kg (285-295); Phosphorus 4.2 mg/dL (2.5-4.5); Potassium 3.7 mmol/L (3.5-5.1); Sodium 136 mmol/L (136-145)
[2020-08-31] MEDS: amlodipine 5 mg Tablet 10 MG PO (09:01)
[2020-08-31] MEDS: thiamine 100 mg Tablet PO (09:01)
[2020-08-31] MEDS: aspirin 81 mg EC Tablet PO (09:01)
[2020-08-31] MEDS: docusate sodium 100 mg Capsule PO ×2 (09:01→17:36)
[2020-08-31] MEDS: magnesium oxide 400 mg tablet PO ×2 (09:01→17:36)
[2020-08-31] MEDS: calcitriol 0.25 mcg Capsule 0.5 MCG PO (09:01)
[2020-08-31] MEDS: hyDRALAzine 25 mg Tablet 75 MG PO ×3 (09:01→20:28)
[2020-08-31] MEDS: pantoprazole DR 40 mg Tablet PO (09:02)
[2020-08-31] MEDS: multivitamin therapeutic Tablet 1 TAB PO (09:02)
[2020-08-31] MEDS: folic acid 1 mg Tablet PO ×2 (09:02→17:36)
--- NOTE | 2020-08-31 10:14 | PM.PN ---
Subjective Subjective: Interval history: Patient denies any neck pain, no significant bleeding from the catheter site Vitals/I&O/Wt Last Vital Signs Temp 98.8 F 08/31/20 07:11 Pulse 87 08/31/20 07:11 Resp 16 08/31/20 07:11 BP 179/85 08/31/20 07:11 Pulse Ox 94 08/31/20 07:11 08/30/20 08/31/20 08/31/20 22:59 06:59 14:59 Intake Total 380 / 740 240 / 740 140 / 140 Output Total 425 / 965 540 / 965 550 / 550 Balance -45 / -225 -300 / -225 -410 / -410 Physical Exam Narrative: EXAM NARRATIVE: Right neck: Tunneled IJ hemodialysis catheter in place, no significant cellulitis or hematoma Data : 08/30/20 04:55 08/31/20 07:03 A&P Assessment and plan (1) S/P hemodialysis catheter insertion: 65-year-old male with acute kidney injury who needs dialysis status post hemodialysis catheter placement doing well Okay to use hemodialysis catheter today Status: Acute Attestations Medical Necessity Statement*: Status post hemodialysis catheter insertion requiring inpatient stay for dialysis today Coding Level of Care Code Acute Head Of History for g Fwd Diagnoses S/P hemodialysis catheter insertion Z99.2
[2020-08-31] MEDS: heparin, porcine 1,000 unit/mL INJ 10 mL HE (11:24)
--- NOTE | 2020-08-31 13:31 | P.PN_ITS ---
Subjective Subjective: Interval history: The patient denies any active complaints. No significant events or changes. Denies headache, chest pain, shortness of breath, weakness. Medications: Reviewed: Yes Vitals/I&O/Wt Last Vital Signs Temp 98.8 F 08/31/20 07:11 Pulse 87 08/31/20 07:11 Resp 16 08/31/20 07:11 BP 179/85 08/31/20 07:11 Pulse Ox 94 08/31/20 07:11 08/30/20 08/31/20 08/31/20 22:59 06:59 14:59 Intake Total 380 / 500 240 / 740 140 / 140 Output Total 425 / 425 540 / 965 550 / 550 Balance -45 / 75 -300 / -225 -410 / -410 Physical Exam Narrative: EXAM NARRATIVE: Awake alert oriented. No acute distress. Mood and affect are appropriate. Responses are adequate. Skin is warm and dry. Pale. Moist mucous membranes. Neck is supple. No JVD Eyes PERRLA, extraocular muscles are intact Normal speech. Lungs bilateral wheezes. No respiratory distress Heart S1, S2, regular Abdomen soft, nontender, bowel sounds are present Extremities no edema cyanosis or calf tenderness bilaterally No focal muscle weakness. Cerebellar tests are within normal range. Data : 08/30/20 04:55 08/31/20 07:03 A&P Additional A&P Information 65-year-old male with past medical history of hypertension and COVID-19 infection about 2 months ago which did not require any treatments, was seen by his primary care physician for complaints of nausea. Blood testing revealed increased creatinine and new onset anemia. Acute kidney injury, severe. Possible end-stage renal disease. CT revealed possible chronic kidney disease. His creatinine several years ago was 0.9. No recent data is available. No evidence of hydronephrosis. The patient did not seem to be dehydrated. Appreciate nephrology team evaluation and advice. Appreciate Dr. Vora for placing dialysis catheter.Dialysis is being initiated today. Discussed with the case management. Outpatient dialysis arrangements are being done. Anemia. Most likely related to #1. No evidence of hemolysis. Folic acid is deficient probably due to EtOH. Replacing. Had a BM without any evidence of blood. Hypertensive urgency. Medications are adjusted. Currently BP is controlled. Hypocalcemia. Replacement per Dr. Savage. Hypomagnesemia. Replaced. QT prolongation on initial EKG. Probably due to hypomagnesemia. Resolved. Hyponatremia. Most likely related to COREY. Resolved. Metabolic acidosis. Most likely related to #1. Receiving bicarb. Improving. Continue management per channel cementer insole machine. History of EtOH. Continue vitamin supplementation and CIWA protocol. No evidence of withdrawals at this time. Tobacco abuse. Counseling will be provided. Possible emphysema. No evidence of exacerbation. Right basilar opacity. Could be residual from his recent Covid pneumonia. Currently he does not have evidence of any uncontrolled infection. No fever. No shortness of breath. Chronic cough. Calcitonin level within normal range. 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 Subacute findings on CT. Left upper extremity numbness. Continue aspirin and statin.. Will need to improve blood pressure control. Abnormal troponin. No ischemic changes on EKG. Denies chest pain or any other cardiac complaints. Most likely related to significant anemia in settings of acute kidney injury and malignant hypertension. Demand ischemia. Aspirin is ordered. Outpatient follow-up with spot billing clerk. CODE STATUS. Full code. DVT prophylaxis. Starting heparin. The plan of care was discussed with the patient. He verbalized understanding and agreement. Attestations Medical Necessity Statement*: Initiating dialysis treatments. Will need couple more days to arrange his outpatient dialysis needs. Coding Level of Care Code Acute Feed Elevator Worker for Maria Teresa Bruno
[2020-08-31] MEDS: potassium chloride ER 20 mEq Tablet PO (13:44)
[2020-08-31] MEDS: sodium chloride 0.9% 1,000 ML 30 ML IV (15:39)
[2020-08-31] MEDS: acetaminophen 325 mg Tablet 650 MG PO (17:36)
[2020-08-31] MEDS: heparin 5,000 unit/mL INJ 1 mL 5000 UNIT SUBCUT (20:27)
[2020-08-31] MEDS: lisinopril 20 mg Tablet 40 MG PO (20:28)
[2020-09-01] VITALS (11 sets, daily range): BP systolic 170–192; BP diastolic 79–85; PULSE 79–92; RESP 17–20; TEMP 36.4–37.3; O2SAT 91–94
[2020-09-01] MEDS: labetalol 5 mg/mL SDV 20mL 10 MG IVP (05:22)
--- NOTE | 2020-09-01 07:36 | P.PN_ITS ---
Subjective Subjective: Interval history: poor appetite, insomnia. states HD went well yesterday. + nausea. no edema. + cough Medications: Reviewed: Yes Medication Review Details: Current Medications Acetaminophen (Acetaminophen 325 Mg Tablet) 650 mg PO Q6H PRN PRN Reason: Mild/Mod Pain Or Temp >/= 101 Last Admin: 08/31/20 17:36 Dose: 650 mg Documented by: Acetaminophen (Acetaminophen 325 Mg Tablet) 650 mg PO Q6H PRN PRN Reason: MILD PAIN Albuterol/Ipratropium (Ipratropium-Albuterol 3 Ml Neb) 3 ml INHALATION Q4H PRN PRN Reason: SHORTNESS OF BREATH Last Admin: 08/28/20 17:26 Dose: 3 ml Documented by: Amlodipine Besylate (Amlodipine 5 Mg Tablet) 10 mg PO DAILY [facility] Last Admin: 08/31/20 09:01 Dose: 10 mg Documented by: Aspirin (Aspirin 81 Mg Ec Tablet) 81 mg PO DAILY [facility] Last Admin: 08/31/20 09:01 Dose: 81 mg Documented by: Calcitriol (Calcitriol 0.25 Mcg Capsule) 0.5 mcg PO DAILY [facility] Last Admin: 08/31/20 09:01 Dose: 0.5 mcg Documented by: Calcium Carbonate (Calcium Carbonate 500 Mg Chew Tablet) 1,000 mg PO TID [facility] Last Admin: 08/31/20 20:28 Dose: 1,000 mg Documented by: Docusate Sodium (Docusate Sodium 100 Mg Capsule) 100 mg PO BID [facility] Last Admin: 08/31/20 17:36 Dose: 100 mg Documented by: Folic Acid (Folic Acid 1 Mg Tablet) 1 mg PO BIDWM [facility] Last Admin: 08/31/20 17:36 Dose: 1 mg Documented by: Heparin Sodium (Beef Lung) (Heparin 5,000 Unit/Ml Inj 1 Ml) 5,000 unit SUBCUT Q12H [facility] Last Admin: 08/31/20 20:27 Dose: 5,000 unit Documented by: Hydralazine HCl (Hydralazine 25 Mg Tablet) 75 mg PO TID [facility] Last Admin: 08/31/20 20:28 Dose: 75 mg Documented by: Sodium Chloride (Sodium Chloride 0.9%) 1,000 mls @ 30 mls/hr IV .Q24H [facility] Last Admin: 08/31/20 15:39 Dose: 30 mls/hr Documented by: Sodium Chloride (Sodium Chloride 0.9%) 1,000 mls @ 0 mls/hr IV .Q0M PRN PRN Reason: hypotension or symptomatic Labetalol HCl (Labetalol 5 Mg/Ml Sdv 20ml) 10 mg IVP Q4H PRN PRN Reason: SBP above 160, hold HR below 65 Last Admin: 09/01/20 05:22 Dose: 10 mg Documented by: Lactulose (Lactulose Oral Liq 20 Gm/30 Ml Udc) 10 gm PO Q6H PRN PRN Reason: CONSTIPATION Last Admin: 08/29/20 17:47 Dose: 10 gm Documented by: Lisinopril (Lisinopril 20 Mg Tablet) 40 mg PO DAILY [facility] Last Admin: 08/31/20 20:28 Dose: 40 mg Documented by: Lorazepam (Lorazepam 2 Mg/Ml Inj 1 Ml) 2 mg IM PROTOCOL PRN; Protocol PRN Reason: ALCOWD Lorazepam (Lorazepam 2 Mg Tablet) 2 mg PO PROTOCOL PRN; Protocol PRN Reason: WITHDRAWAL Magnesium Oxide (Magnesium Oxide 400 Mg Tablet) 400 mg PO BID [facility] Last Admin: 08/31/20 17:36 Dose: 400 mg Documented by: Metoprolol Tartrate (Metoprolol Tartrate 25 Mg Tablet) 25 mg PO BID@0900,2100 [facility] Last Admin: 08/31/20 20:28 Dose: 25 mg Documented by: Morphine Sulfate (Morphine 4 Mg/Ml Sdv 1 Ml) 2 mg IVP Q4H PRN PRN Reason: SEVERE PAIN Multivitamins Therapeutic (Multivitamin Therapeutic Tablet) 1 tab PO DAILY [facility] Last Admin: 08/31/20 09:02 Dose: 1 tab Documented by: Ondansetron HCl (Ondansetron 2 Mg/Ml Sdv 2 Ml) 4 mg IVP Q6H PRN PRN Reason: vomiting, or N/V if npo Pantoprazole Sodium (Pantoprazole Dr 40 Mg Tablet) 40 mg PO DAILY [facility] Last Admin: 08/31/20 09:02 Dose: 40 mg Documented by: Thiamine Mononitrate (Thiamine 100 Mg Tablet) 100 mg PO DAILY [facility] Last Admin: 08/31/20 09:01 Dose: 100 mg Documented by: Vitals/I&O/Wt Last Vital Signs Temp 97.5 F L 09/01/20 03:50 Pulse 91 09/01/20 06:00 Resp 19 H 09/01/20 03:50 BP 188/80 09/01/20 05:56 Pulse Ox 92 09/01/20 03:50 08/31/20 09/01/20 09/01/20 22:59 06:59 14:59 Intake Total 1075.5 / 1355.5 690 / 2045.5 Output Total 450 / 1000 1700 / 2700 Balance 625.5 / 355.5 -1010 / -654.5 Physical Exam Narrative: EXAM NARRATIVE: Constitutional: Awake, comfortable NARD vs noted- bp elevated HEENT: nc/at, eomi, anicteric neck supple, RT ACW PC Lungs: Bilaterally wheezes and rales in all lung zones CVS: S1 S2, no murmurs Abdo: Soft, BS +, nt, nd Ext 4: no c/c/e skin no rashes Neurological: a,a, o x 3, from x 4, no asterixis exam w/ RN- teleheath visit Const: COMMON NORMALS: no acute distress GENERAL APPEARANCE: cooperative Resp: COMMON NORMALS: normal respiratory effort and clear to auscultation bilaterally AUSCULTATION: clear to auscultation bilaterally and rhonchi Cardio: COMMON NORMALS: regular rate and regular rhythm RATE: regular rate RHYTHM: regular rhythm Extremity: COMMON NORMALS: no pedal edema Data : 08/30/20 04:55 08/31/20 07:03 A&P Additional A&P Information Impression: 1. Chronic kidney disease, nephrotic range proteinuria, duration unknown. Imaging reports mild renal cortical thinning and atrophy. Records from [facility] show serum Cr 1.3 mg/dL in May 2018. Recent COVID infection, not requiring hospitalization. -pt discussed w/ my partners, they agree w/ renal bx- can be done as inpatient or outpt -s/p first HD yesterday -repeat HD in am 2. Metabolic acidosis, monitor w/ HD 3. Hypocalcemia, improving, low vitamin D -vit d , low dose zemplar w/ hd- d/c calcitriol -pth 124- acceptable to low for ESRD -monitor electrolytes 4. Anemia, iron replete. give epo 5. Hypertension, no evidence VERNON on doppler -dec EDW on HD -simplify BP regimen Needs outpatient dialysis unit placement. Next HD [facility] 09/02/2020 Attestations Medical Necessity Statement*: COREY Time Spent in Patient Care: 16 - 35 minutes Coding Level of Care Code Acute Brine Process Operator for Maria Teresa Bruno
[2020-09-01 08:01] LABS: Basophils # 0.1 10^3/uL (0.0-0.1); Eosinophils # 0.6 10^3/uL (0.0-0.8); Eosinophils % 8.6 %; Hematocrit 23.2 % (42.0-52.0); Hemoglobin 7.6 g/dL (11.7-16.6); Lymphocytes # 1.1 10^3/uL (0.8-4.8); Lymphocytes % 14.8 %; Mean Corpuscular HGB Conc 32.8 g/dL (30.0-36.0); Mean Corpuscular Hemoglobin 32.9 pg (28.0-34.0); Mean Corpuscular Volume 100.4 fL (80-94); Mean Platelet Volume 10.2 fL (7.4-10.4); Monocytes # 0.8 10^3/uL (0.2-0.9); Monocytes % 11.2 %; Neutrophils # 4.66 10^3/uL (1.8-7.7); Neutrophils % 63.7 %; Nucleated Red Blood Cells % 0 %; Platelet Count 284 10^3/cmm (130-400); Red Blood Count 2.31 10^6/uL (4.1-5.3); Red Cell Distribution Width 13.4 % (12.1-15.1); White Blood Count 7.3 10^3/uL (4.0-10.0)
[2020-09-01] MEDS: pantoprazole DR 40 mg Tablet PO (08:37)
[2020-09-01] MEDS: multivitamin therapeutic Tablet 1 TAB PO (08:37)
[2020-09-01] MEDS: magnesium oxide 400 mg tablet PO ×2 (08:37→17:12)
[2020-09-01] MEDS: hyDRALAzine 25 mg Tablet PO ×3 (08:38→22:23)
[2020-09-01] MEDS: folic acid 1 mg Tablet PO ×2 (08:38→17:12)
[2020-09-01] MEDS: amlodipine 5 mg Tablet 10 MG PO (08:38)
[2020-09-01] MEDS: docusate sodium 100 mg Capsule PO ×2 (08:38→17:12)
[2020-09-01] MEDS: aspirin 81 mg EC Tablet PO (08:38)
[2020-09-01] MEDS: lisinopril 20 mg Tablet 40 MG PO (08:38)
[2020-09-01] MEDS: calcium carbonate 500 mg Chew Tablet 1000 MG PO ×3 (08:38→22:23)
[2020-09-01] MEDS: thiamine 100 mg Tablet PO (08:38)
[2020-09-01] MEDS: heparin 5,000 unit/mL INJ 1 mL 5000 UNIT SUBCUT ×2 (08:39→22:24)
[2020-09-01] MEDS: metoprolol tartrate 50 mg Tablet PO ×2 (08:40→22:24)
[2020-09-01 10:15] LABS: Anion Gap 17.8 (5-19); Blood Urea Nitrogen 36 mg/dL (8-23); Calcium 8.2 mg/dL (8.5-10.5); Carbon Dioxide 22 mmol/L (22-29); Chloride 102 mmol/L (98-107); Glomerular Filtration Rate 16.1 mL/min (90-130); Glucose 100 mg/dL (65-115); Osmolality Calculated 294 mOsm/kg (285-295); Potassium 3.8 mmol/L (3.5-5.1); Sodium 138 mmol/L (136-145)
--- NOTE | 2020-09-01 11:17 | PM.PN ---
Subjective Subjective: Interval history: Overall he is doing okay. No significant changes or events. Successfully underwent dialysis yesterday. No shortness of breath. No nausea or vomiting. No chills. Medications: Reviewed: Yes Medication Review Details: Generic Name Dose Route Start Last Admin Trade Name Freq PRN Reason Stop Dose Admin Acetaminophen 650 mg 08/28/20 13:32 08/31/20 17:36 Acetaminophen 32 5 Mg Tablet PO 650 mg Q6H PRN Administration Mild/Mod Pain Or Temp >/= 101 Albuterol/Ipratrop ium 3 ml 08/28/20 14:00 08/28/20 17:26 Ipratropium-Albu terol 3 Ml Neb INHALATION 3 ml Q4H PRN Administration SHORTNESS OF ELVIN TH Amlodipine Besylat e 10 mg 08/29/20 10:30 09/01/20 08:38 Amlodipine 5 Mg Tablet PO 10 mg DAILY YARELY Administration Aspirin 81 mg 08/30/20 09:00 09/01/20 08:38 Aspirin 81 Mg Ec Tablet PO 81 mg DAILY YARELY Administration Calcium Carbonate 1,000 mg 08/31/20 15:00 09/01/20 08:38 Calcium Carbonat e 500 Mg Chew Tabl et PO 1,000 mg TID YARELY Administration Docusate Sodium 100 mg 08/29/20 18:00 09/01/20 08:38 Docusate Sodium 100 Mg Capsule PO 100 mg BID YARELY Administration Folic Acid 1 mg 08/29/20 18:00 09/01/20 08:38 Folic Acid 1 Mg Tablet PO 1 mg BIDWM YARELY Administration Heparin Sodium (Be ef Lung) 5,000 unit 08/31/20 20:00 09/01/20 08:39 Heparin 5,000 Un it/Ml Inj 1 Ml SUBCUT 5,000 unit Q12H YARELY Administration Hydralazine HCl 25 mg 09/01/20 09:00 09/01/20 08:38 Hydralazine 25 M g Tablet PO 25 mg TID YARELY Administration Sodium Chloride 1,000 mls @ 30 ml s/hr 08/30/20 12:15 08/31/20 15:39 Sodium Chloride 0.9% IV 30 mls/hr .Q24H YARELY Administration Labetalol HCl 10 mg 08/28/20 16:07 09/01/20 05:22 Labetalol 5 Mg/M l Sdv 20ml IVP 10 mg Q4H PRN Administration SBP above 160, ho ld HR below 65 Lactulose 10 gm 08/29/20 10:21 08/29/20 17:47 Lactulose Oral L iq 20 Gm/30 Ml Udc PO 10 gm Q6H PRN Administration CONSTIPATION Lisinopril 40 mg 08/31/20 21:00 09/01/20 08:38 Lisinopril 20 Mg Tablet PO 40 mg DAILY YARELY Administration Magnesium Oxide 400 mg 08/29/20 18:00 09/01/20 08:37 Magnesium Oxide 400 Mg Tablet PO 400 mg BID YARELY Administration Metoprolol Tartrat e 50 mg 09/01/20 09:00 09/01/20 08:40 Metoprolol Tartr ate 50 Mg Tablet PO 50 mg BID@0900,2100 [facility] Administration Multivitamins Ther apeutic 1 tab 08/29/20 09:00 09/01/20 08:37 Multivitamin The rapeutic Tablet PO 1 tab DAILY YARELY Administration Pantoprazole Sodiu m 40 mg 08/29/20 09:00 09/01/20 08:[address] 40 Mg Tablet PO 40 mg DAILY YARELY Administration Thiamine Mononitra te 100 mg 08/29/20 09:00 09/01/20 08:38 Thiamine 100 Mg Tablet PO 100 mg DAILY YARELY Administration Vitals/I&O/Wt Last Vital Signs Temp 98.3 F 09/01/20 07:39 Pulse 90 09/01/20 10:42 Resp 18 09/01/20 10:42 BP 192/85 09/01/20 07:39 Pulse Ox 93 09/01/20 10:42 08/31/20 09/01/20 09/01/20 22:59 06:59 14:59 Intake Total 1075.5 / 1355.5 690 / 2045.5 240 / 240 Output Total 450 / 1000 1700 / 2700 Balance 625.5 / 355.5 -1010 / -654.5 240 / 240 Physical Exam Narrative: EXAM NARRATIVE: Peacefully sleeping. No acute distress. Skin is warm and dry. Moist mucous membranes. No JVD No respiratory distress Abdomen soft Extremities no edema or cyanosis Data : 09/01/20 07:45 09/01/20 07:45 A&P Additional A&P Information 65-year-old male with past medical history of hypertension and COVID-19 infection about 2 months ago which did not require any treatments, was seen by his primary care physician for complaints of nausea. Blood testing revealed increased creatinine and new onset anemia. Acute kidney injury, severe. Possible end-stage renal disease. CT revealed possible chronic kidney disease. His creatinine several years ago was 0.9. No recent data is available. No evidence of hydronephrosis. The patient did not seem to be dehydrated. Appreciate nephrology team evaluation and advice. Appreciate Dr. Vora for placing dialysis catheter. Continuing dialysis treatments per nephrology. Anemia. Most likely related to #1. No evidence of hemolysis. Folic acid is deficient probably due to EtOH. Replacing. Had a BM without any evidence of blood. Epoetin is initiated by nephrology. Uncontrolled hypertension. Increasing metoprolol today. We will continue as needed medications. Hypocalcemia. Replacement per nephrology. Hypomagnesemia. Replaced. QT prolongation on initial EKG. Probably due to hypomagnesemia. Resolved. Hyponatremia. Most likely related to COREY. Resolved. Metabolic acidosis. Most likely related to #1. Receiving bicarb. Improving. Continue management per life skills coordinator volunteer. History of EtOH. Continue vitamin supplementation and CIWA protocol. No evidence of withdrawals at this time. Tobacco abuse. Counseling will be provided. Possible emphysema. No evidence of exacerbation. Right basilar opacity. Could be residual from his recent Covid pneumonia. Currently he does not have evidence of any uncontrolled infection. No fever. No shortness of breath. Chronic cough. Calcitonin level within normal range. 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 Subacute findings on CT. Left upper extremity numbness. Continue aspirin and statin.. Will need to improve blood pressure control. Abnormal troponin. No ischemic changes on EKG. Denies chest pain or any other cardiac complaints. Most likely related to significant anemia in settings of acute kidney injury and malignant hypertension. Demand ischemia. Aspirin is ordered. Outpatient follow-up with environmental conservation professor. CODE STATUS. Full code. DVT prophylaxis. Heparin. Attestations Medical Necessity Statement*: Continuing dialysis treatments and adjustments of his blood pressure medications. Needs outpatient dialysis arrangements. Coding Level of Care Code Acute A And P Technician for Maria Teresa Bruno
[2020-09-02] VITALS (10 sets, daily range): BP systolic 128–195; BP diastolic 65–92; PULSE 75–100; RESP 16–20; TEMP 37–37.4; O2SAT 89–97
[2020-09-02] MEDS: sodium chloride 0.9% 1,000 ML 30 ML IV (01:05)
[2020-09-02] MEDS: labetalol 5 mg/mL SDV 20mL 10 MG IVP ×4 (01:19→15:40)
[2020-09-02] MEDS: zolpidem 5 mg Tablet 10 MG PO (01:49)
[2020-09-02 06:09] LABS: Alanine Aminotransferase < 5 U/L (0-41); Albumin Level 3.2 g/dL (3.5-5.2); Alkaline Phosphatase 59 IU/L (40-130); Anion Gap 14.9 (5-19); Aspartate Amino Transferase 15 U/L (0-40); Blood Urea Nitrogen 38 mg/dL (8-23); Calcium 8.5 mg/dL (8.5-10.5); Carbon Dioxide 22 mmol/L (22-29); Chloride 99 mmol/L (98-107); Globulin 3.4 g/dL (1.3-4.6); Glomerular Filtration Rate 16.6 mL/min (90-130); Glucose 97 mg/dL (65-115); Osmolality Calculated 283 mOsm/kg (285-295); Potassium 3.9 mmol/L (3.5-5.1); Sodium 132 mmol/L (136-145); Total Bilirubin 0.2 mg/dL (0.15-1.2); Total Protein 6.6 g/dL (6.6-8.7)
[2020-09-02 06:25] LABS: Magnesium 1.6 mg/dL (1.7-2.3)
--- NOTE | 2020-09-02 07:22 | P.PN_ITS ---
Subjective Subjective: Interval history: bleeding at dialysis catheter exit site. no n/v/f/c//cp/leggett/d/dec sob. appetite improving Medications: Reviewed: Yes Medication Review Details: Current Medications Acetaminophen (Acetaminophen 325 Mg Tablet) 650 mg PO Q6H PRN PRN Reason: Mild/Mod Pain Or Temp >/= 101 Last Admin: 08/31/20 17:36 Dose: 650 mg Documented by: Acetaminophen (Acetaminophen 325 Mg Tablet) 650 mg PO Q6H PRN PRN Reason: MILD PAIN Albuterol/Ipratropium (Ipratropium-Albuterol 3 Ml Neb) 3 ml INHALATION Q4H PRN PRN Reason: SHORTNESS OF BREATH Last Admin: 08/28/20 17:26 Dose: 3 ml Documented by: Amlodipine Besylate (Amlodipine 5 Mg Tablet) 10 mg PO DAILY [facility] Last Admin: 09/01/20 08:38 Dose: 10 mg Documented by: Aspirin (Aspirin 81 Mg Ec Tablet) 81 mg PO DAILY [facility] Last Admin: 09/01/20 08:38 Dose: 81 mg Documented by: Calcium Carbonate (Calcium Carbonate 500 Mg Chew Tablet) 1,000 mg PO TID [facility] Last Admin: 09/01/20 22:23 Dose: 1,000 mg Documented by: Docusate Sodium (Docusate Sodium 100 Mg Capsule) 100 mg PO BID [facility] Last Admin: 09/01/20 17:12 Dose: 100 mg Documented by: Epoetin Carlin (Epoetin Carlin 20,000 Unit/Ml Inj) 5,000 unit IVP NOW ONE Stop: 09/02/20 08:31 Folic Acid (Folic Acid 1 Mg Tablet) 1 mg PO BIDWM [facility] Last Admin: 09/01/20 17:12 Dose: 1 mg Documented by: Heparin Sodium (Beef Lung) (Heparin 5,000 Unit/Ml Inj 1 Ml) 5,000 unit SUBCUT Q12H [facility] Last Admin: 09/01/20 22:24 Dose: 5,000 unit Documented by: Hydralazine HCl (Hydralazine 25 Mg Tablet) 25 mg PO TID [facility] Last Admin: 09/01/20 22:23 Dose: 25 mg Documented by: Sodium Chloride (Sodium Chloride 0.9%) 1,000 mls @ 30 mls/hr IV .Q24H [facility] Last Admin: 09/02/20 01:05 Dose: 30 mls/hr Documented by: Sodium Chloride (Sodium Chloride 0.9%) 1,000 mls @ 0 mls/hr IV .Q0M PRN PRN Reason: hypotension or symptomatic Labetalol HCl (Labetalol 5 Mg/Ml Sdv 20ml) 10 mg IVP Q4H PRN PRN Reason: SBP above 160, hold HR below 65 Last Admin: 09/02/20 06:19 Dose: 10 mg Documented by: Lactulose (Lactulose Oral Liq 20 Gm/30 Ml Udc) 10 gm PO Q6H PRN PRN Reason: CONSTIPATION Last Admin: 08/29/20 17:47 Dose: 10 gm Documented by: Lisinopril (Lisinopril 20 Mg Tablet) 40 mg PO DAILY [facility] Last Admin: 09/01/20 08:38 Dose: 40 mg Documented by: Lorazepam (Lorazepam 2 Mg/Ml Inj 1 Ml) 2 mg IM PROTOCOL PRN; Protocol PRN Reason: ALCOWD Lorazepam (Lorazepam 2 Mg Tablet) 2 mg PO PROTOCOL PRN; Protocol PRN Reason: WITHDRAWAL Magnesium Oxide (Magnesium Oxide 400 Mg Tablet) 400 mg PO BID [facility] Last Admin: 09/01/20 17:12 Dose: 400 mg Documented by: Metoprolol Tartrate (Metoprolol Tartrate 50 Mg Tablet) 50 mg PO BID@0900,2100 [facility] Last Admin: 09/01/20 22:24 Dose: 50 mg Documented by: Morphine Sulfate (Morphine 4 Mg/Ml Sdv 1 Ml) 2 mg IVP Q4H PRN PRN Reason: SEVERE PAIN Multivitamins Therapeutic (Multivitamin Therapeutic Tablet) 1 tab PO DAILY [facility] Last Admin: 09/01/20 08:37 Dose: 1 tab Documented by: Ondansetron HCl (Ondansetron 2 Mg/Ml Sdv 2 Ml) 4 mg IVP Q6H PRN PRN Reason: vomiting, or N/V if npo Pantoprazole Sodium (Pantoprazole Dr 40 Mg Tablet) 40 mg PO DAILY [facility] Last Admin: 09/01/20 08:37 Dose: 40 mg Documented by: Thiamine Mononitrate (Thiamine 100 Mg Tablet) 100 mg PO DAILY [facility] Last Admin: 09/01/20 08:38 Dose: 100 mg Documented by: Vitals/I&O/Wt Last Vital Signs Temp 99.4 F 09/02/20 04:00 Pulse 89 09/02/20 04:00 Resp 20 H 09/02/20 04:00 BP 182/88 09/02/20 04:00 Pulse Ox 90 09/02/20 04:00 09/01/20 09/02/20 09/02/20 22:59 06:59 14:59 Intake Total 240 / 720 1240 / 1960 Output Total 1200 / 1900 Balance 240 / 20 40 / 60 Physical Exam Narrative: EXAM NARRATIVE: Constitutional: Awake, comfortable NARD vs noted- bp elevated HEENT: nc/at, eomi, anicteric neck supple, RT ACW PC w/ blood by site on bandage Lungs: Bilaterally wheezes and rales in all lung zones CVS: S1 S2, no murmurs Abdo: Soft, BS +, nt, nd Ext 4: no c/c/ 1+ edema skin no rashes Neurological: a,a, o x 3, from x 4, no asterixis exam w/ RN- teleheath visit Data : 09/01/20 07:45 09/02/20 05:02 A&P Additional A&P Information Impression: 1. Chronic kidney disease, nephrotic range proteinuria, duration unknown. Imaging reports mild renal cortical thinning and atrophy. Records from [facility] show serum Cr 1.3 mg/dL in May 2018. Recent COVID infection, not requiring hospitalization. -pt discussed w/ my partners, they agree w/ renal bx- can be done as inpatient or outpt -s/p first HD 08/31/20 -repeat HD today for volume removal -bleeding by HD cathter- monitor, HD, and give DDAVP 2. Metabolic acidosis, monitor w/ HD 3. Hypocalcemia, improving, low vitamin D -vit d , low dose zemplar w/ hd- d/c calcitriol -pth 124- acceptable to low for ESRD -monitor electrolytes 4. Anemia, iron replete. give epo 5. Hypertension, no evidence VERNON on doppler -dec EDW on HD -simplify BP regimen 6. hyponatremia - monitor w/ HD normal TSH Needs outpatient dialysis unit placement. seen and examined w/ RN Attestations Medical Necessity Statement*: anemia, ESRD, electrolyte abnormalities- per medicine Time Spent in Patient Care: 16 - 35 minutes Coding Level of Care Code Acute Truck Driver Helper for Chg Damion
--- NOTE | 2020-09-02 09:43 | PC.NURSE ---
meds Pt is in dialysis and so unable to give morning meds.
--- NOTE | 2020-09-02 10:13 | PC.NURSE ---
Blood pressure Pt was in dialysis with B/P of 205/104 with HR of 85. Labetolol 10mg give ivp.
[2020-09-02] MEDS: lisinopril 20 mg Tablet 40 MG PO (13:29)
[2020-09-02] MEDS: aspirin 81 mg EC Tablet PO (13:29)
[2020-09-02] MEDS: amlodipine 5 mg Tablet 10 MG PO (13:30)
[2020-09-02] MEDS: thiamine 100 mg Tablet PO (13:30)
[2020-09-02] MEDS: pantoprazole DR 40 mg Tablet PO (13:30)
[2020-09-02] MEDS: magnesium oxide 400 mg tablet PO ×2 (13:30→17:49)
[2020-09-02] MEDS: multivitamin therapeutic Tablet 1 TAB PO (13:30)
[2020-09-02] MEDS: folic acid 1 mg Tablet PO ×2 (13:44→17:49)
[2020-09-02] MEDS: docusate sodium 100 mg Capsule PO ×2 (13:44→17:49)
[2020-09-02] MEDS: calcium carbonate 500 mg Chew Tablet 1000 MG PO ×2 (13:44→20:07)
[2020-09-02] MEDS: metoprolol tartrate 50 mg Tablet PO ×2 (13:44→20:07)
[2020-09-02] MEDS: heparin 5,000 unit/mL INJ 1 mL 5000 UNIT SUBCUT ×2 (13:45→20:07)
--- NOTE | 2020-09-02 17:34 | P.PN_ITS ---
Subjective Subjective: Interval history: Underwent hemodialysis today, tolerated well.awaiting confirmation from [facility] regarding setting up of outpatient dialysis. Medications: Reviewed: Yes Vitals/I&O/Wt Last Vital Signs Temp 99.0 F 09/02/20 15:19 Pulse 86 09/02/20 15:19 Resp 20 H 09/02/20 15:19 BP 180/82 09/02/20 15:19 Pulse Ox 95 09/02/20 15:19 09/02/20 09/02/20 09/02/20 06:59 14:59 22:59 Intake Total 1240 / 1960 55 / 55 Output Total 1200 / 1900 Balance 40 / 60 55 / 55 Physical Exam Narrative: EXAM NARRATIVE: GEN: Awake, alert and oriented, no acute distress CVS: S1S2 N RS: Bilateral scattered wheezing anteriorly Abd: Soft, nt/nd , bs+ JOB COACH/JOB DEVELOPER: no focal neuro deficits Data : 09/01/20 07:45 09/02/20 05:02 A&P Additional A&P Information 65-year-old male with past medical history of hypertension and COVID-19 infection about 2 months ago which did not require any treatments, was seen by his primary care physician for complaints of nausea. Blood testing revealed increased creatinine and new onset anemia. Acute kidney injury, severe. Possible end-stage renal disease. CT revealed po ssible chronic kidney disease. His creatinine several years ago was 0.9. No recent data is available. No evidence of hydronephrosis. started HD as inpatient, tolerating well currently. Awaiting coordination with [facility] to initiate outpatient HD, they are awiting prior auth from insurance. Kidney biopsy as outpateint Anemia. Most likely related to #1. No evidence of hemolysis. Folic acid is deficient probably due to EtOH. Replacing. Had a BM without any evidence of blood. Epoetin is initiated by nephrology. Uncontrolled hypertension. Increasing metoprolol today. We will continue as needed medications. Possible emphysema. Has not been formally evaluated, wheezing on exam noted today, add albuterol inhalers, unwilling to continue nebulization. Will need outpatient follow-up Right basilar opacity. Could be residual from his recent Covid pneumonia. Currently he does not have evidence of any uncontrolled infection. No fever. No shortness of breath. Chronic cough. Calcitonin level within normal range. 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 Subacute findings on CT. Left upper extremity numbness. Continue aspirin and statin.. Will need to improve blood pressure control. Abnormal troponin. No ischemic changes on EKG. Denies chest pain or any other cardiac complaints. Most likely related to significant anemia in settings of acute kidney injury and malignant hypertension. Demand ischemia. Aspirin is ordered. Outpatient follow-up with mixer crane operator. CODE STATUS. Full code. DVT prophylaxis. Heparin. Discontinue CIWA protocol, has scored 0 on several exams. Attestations Medical Necessity Statement*: Awaiting confirmation from [facility] that patient can be initiated on outpatient dialysis once discharged from the hospital, they are awaiting prior auth Coding Level of Care Code Acute Manager User Interface for Maria Teresa Bruno
[2020-09-02] MEDS: isosorbide mononitrate ER 30 mg Tablet 15 MG PO (18:05)
[2020-09-02] MEDS: ALPRAZolam 0.25 mg Tablet PO (20:07)
[2020-09-03] VITALS (14 sets, daily range): BP systolic 125–192; BP diastolic 65–102; PULSE 63–83; RESP 18–20; TEMP 36.7–37.3; O2SAT 94–97
[2020-09-03 05:42] LABS: Basophils % 0.4 %; Eosinophils # 0.6 10^3/uL (0.0-0.8); Eosinophils % 6.2 %; Hemoglobin 6.8 g/dL (11.7-16.6); Lymphocytes # 1.2 10^3/uL (0.8-4.8); Lymphocytes % 12.6 %; Mean Corpuscular HGB Conc 32.4 g/dL (30.0-36.0); Mean Corpuscular Hemoglobin 33.2 pg (28.0-34.0); Mean Corpuscular Volume 102.4 fL (80-94); Mean Platelet Volume 10.7 fL (7.4-10.4); Monocytes % 10.2 %; Neutrophils # 6.54 10^3/uL (1.8-7.7); Neutrophils % 70.1 %; Nucleated Red Blood Cells % 0 %; Platelet Count 246 10^3/cmm (130-400); Red Blood Count 2.05 10^6/uL (4.1-5.3); Red Cell Distribution Width 13.4 % (12.1-15.1); White Blood Count 9.3 10^3/uL (4.0-10.0)
[2020-09-03 06:19] LABS: Alanine Aminotransferase < 5 U/L (0-41); Albumin Level 3.1 g/dL (3.5-5.2); Alkaline Phosphatase 58 IU/L (40-130); Anion Gap 12.8 (5-19); Aspartate Amino Transferase 14 U/L (0-40); Blood Urea Nitrogen 22 mg/dL (8-23); Calcium 8.1 mg/dL (8.5-10.5); Carbon Dioxide 28 mmol/L (22-29); Chloride 97 mmol/L (98-107); Globulin 3.1 g/dL (1.3-4.6); Glucose 99 mg/dL (65-115); Magnesium 1.8 mg/dL (1.7-2.3); Osmolality Calculated 281 mOsm/kg (285-295); Phosphorus 3.3 mg/dL (2.5-4.5); Potassium 3.8 mmol/L (3.5-5.1); Sodium 134 mmol/L (136-145); Total Bilirubin 0.2 mg/dL (0.15-1.2); Total Protein 6.2 g/dL (6.6-8.7)
--- NOTE | 2020-09-03 07:20 | PM.PN ---
Subjective Subjective: Interval history: sob. denies bleeding. states he feels better s/p HD. however, is hypoxic- requiring nc o2 Medications: Reviewed: Yes Medication Review Details: Current Medications Acetaminophen (Acetaminophen 325 Mg Tablet) 650 mg PO Q6H PRN PRN Reason: Mild/Mod Pain Or Temp >/= 101 Last Admin: 08/31/20 17:36 Dose: 650 mg Documented by: Acetaminophen (Acetaminophen 325 Mg Tablet) 650 mg PO Q6H PRN PRN Reason: MILD PAIN Albuterol Sulfate (Albuterol 8 Gm Mdi) 2 puff INHALATION Q4H.RESPIRATORY PRN PRN Reason: SHORTNESS OF BREATH Alprazolam (Alprazolam 0.25 Mg Tablet) 0.25 mg PO BEDTIME [facility] Last Admin: 09/02/20 20:07 Dose: 0.25 mg Documented by: Amlodipine Besylate (Amlodipine 5 Mg Tablet) 10 mg PO DAILY [facility] Last Admin: 09/02/20 13:30 Dose: 10 mg Documented by: Aspirin (Aspirin 81 Mg Ec Tablet) 81 mg PO DAILY [facility] Last Admin: 09/02/20 13:29 Dose: 81 mg Documented by: Calcium Carbonate (Calcium Carbonate 500 Mg Chew Tablet) 1,000 mg PO TID [facility] Last Admin: 09/02/20 20:07 Dose: 1,000 mg Documented by: Docusate Sodium (Docusate Sodium 100 Mg Capsule) 100 mg PO BID [facility] [place] Last Admin: 09/02/20 17:49 Dose: 100 mg Documented by: Folic Acid (Folic Acid 1 Mg Tablet) 1 mg PO BIDWM [facility] Last Admin: 09/02/20 17:49 Dose: 1 mg Documented by: Heparin Sodium (Beef Lung) (Heparin 5,000 Unit/Ml Inj 1 Ml) 5,000 unit SUBCUT Q12H [facility] Last Admin: 09/02/20 20:07 Dose: 5,000 unit Documented by: Sodium Chloride (Sodium Chloride 0.9%) 1,000 mls @ 0 mls/hr IV .Q0M PRN PRN Reason: hypotension or symptomatic Isosorbide Mononitrate (Isosorbide Mononitrate Er 30 Mg Tablet) 15 mg PO DAILY [facility] Last Admin: 09/02/20 18:05 Dose: 15 mg Documented by: Lactulose (Lactulose Oral Liq 20 Gm/30 Ml Udc) 10 gm PO Q6H PRN PRN Reason: CONSTIPATION Last Admin: 08/29/20 17:47 Dose: 10 gm Documented by: Lisinopril (Lisinopril 20 Mg Tablet) 40 mg PO DAILY [facility] Last Admin: 09/02/20 13:29 Dose: 40 mg Documented by: Lorazepam (Lorazepam 2 Mg/Ml Inj 1 Ml) 2 mg IM PROTOCOL PRN; Protocol PRN Reason: ALCOWD Lorazepam (Lorazepam 2 Mg Tablet) 2 mg PO PROTOCOL PRN; Protocol PRN Reason: WITHDRAWAL Magnesium Oxide (Magnesium Oxide 400 Mg Tablet) 400 mg PO BID [facility] Last Admin: 09/02/20 17:49 Dose: 400 mg Documented by: Metoprolol Tartrate (Metoprolol Tartrate 50 Mg Tablet) 50 mg PO BID@0900,2100 [facility] Last Admin: 09/02/20 20:07 Dose: 50 mg Documented by: Morphine Sulfate (Morphine 4 Mg/Ml Sdv 1 Ml) 2 mg IVP Q4H PRN PRN Reason: SEVERE PAIN Multivitamins Therapeutic (Multivitamin Therapeutic Tablet) 1 tab PO DAILY [facility] Last Admin: 09/02/20 13:30 Dose: 1 tab Documented by: Ondansetron HCl (Ondansetron 2 Mg/Ml Sdv 2 Ml) 4 mg IVP Q6H PRN PRN Reason: vomiting, or N/V if npo Pantoprazole Sodium (Pantoprazole Dr 40 Mg Tablet) 40 mg PO DAILY [facility] Last Admin: 09/02/20 13:30 Dose: 40 mg Documented by: Thiamine Mononitrate (Thiamine 100 Mg Tablet) 100 mg PO DAILY [facility] Last Admin: 09/02/20 13:30 Dose: 100 mg Documented by: Vitals/I&O/Wt Last Vital Signs Temp 98.8 F 09/03/20 04:00 Pulse 83 09/03/20 04:00 Resp 20 H 09/03/20 04:00 BP 169/80 09/03/20 04:00 Pulse Ox 95 09/03/20 04:00 09/02/20 09/03/20 09/03/20 22:59 06:59 14:59 Intake Total 980 / 1035 Output Total 150 / 150 Balance 980 / 1035 -150 / 885 Physical Exam Narrative: EXAM NARRATIVE: Constitutional: Awake, short of breath , uncomfortable vs noted- bp elevated HEENT: nc/at, eomi, anicteric neck supple, RT ACW PC Lungs: Bilaterally wheezes and rales in all lung zones CVS: S1 S2, no murmurs Abdo: Soft, BS +, nt, nd Ext 4: no c/c/ 1+ edema skin no rashes Neurological: a,a, o x 3, from x 4, no asterixis exam w/ RN- teleheath visit Data : 09/03/20 05:06 09/03/20 05:06 A&P Additional A&P Information Impression: 1. Chronic kidney disease, nephrotic range proteinuria, duration unknown. Imaging reports mild renal cortical thinning and atrophy. Records from [facility] show serum Cr 1.3 mg/dL in May 2018. Recent COVID infection, not requiring hospitalization. -pt discussed w/ my partners, they agree w/ renal bx- can be done as inpatient or outpt -s/p first HD 08/31/20 -repeat HD today for volume removal and to allow prbc tx 2. hypoxemia, anemia- please evaluate anemia per medicine. will tx 2 u prbc. pt on asa for recent CVA, and abnormal trops -on CARMELLA 3. Hypocalcemia, improved. - low vitamin D -vit d , low dose zemplar w/ hd- d/c calcitriol -pth 124- acceptable to low for ESRD -monitor electrolytes 4. Hypertension, no evidence VERNON on doppler -dec EDW on HD -simplify BP regimen 6. hyponatremia - improving w/ HD normal TSH Needs outpatient dialysis unit placement. seen and examined w/ RN -message left w/ hospitalist Attestations Medical Necessity Statement*: anemia, esrd, CAD, CVA, htn Time Spent in Patient Care: 16 - 35 minutes Coding Level of Care Code Acute Psychiatric Rn for Chg Damion
[2020-09-03] MEDS: magnesium oxide 400 mg tablet PO ×2 (08:39→17:52)
[2020-09-03] MEDS: calcium carbonate 500 mg Chew Tablet 1000 MG PO ×2 (08:39→15:05)
[2020-09-03] MEDS: amlodipine 5 mg Tablet PO (08:40)
[2020-09-03] MEDS: lisinopril 20 mg Tablet 40 MG PO (08:40)
[2020-09-03] MEDS: docusate sodium 100 mg Capsule PO ×2 (08:40→17:52)
[2020-09-03] MEDS: pantoprazole DR 40 mg Tablet PO (08:40)
[2020-09-03] MEDS: isosorbide mononitrate ER 30 mg Tablet 15 MG PO (08:40)
[2020-09-03] MEDS: aspirin 81 mg EC Tablet PO (08:40)
[2020-09-03] MEDS: multivitamin therapeutic Tablet 1 TAB PO (08:40)
[2020-09-03] MEDS: folic acid 1 mg Tablet PO ×2 (08:41→17:52)
[2020-09-03] MEDS: thiamine 100 mg Tablet PO (08:41)
[2020-09-03] MEDS: metoprolol tartrate 50 mg Tablet PO (08:54)
--- NOTE | 2020-09-03 10:37 | PC.NURSE ---
typewriters functional tester verfied blood. patient is in dialysis and bag valver started and will monitor patient.
--- NOTE | 2020-09-03 10:52 | PC.NURSE ---
dr kerr ordered to hold heparin, ordered fecal occult
[2020-09-03] MEDS: hyDRALAzine 10 mg Tablet PO (15:05)
[2020-09-03] MEDS: sodium chloride 0.9% (100 ml) 100 ML (15:06)
--- NOTE | 2020-09-03 16:23 | PC.NURSE ---
Report called to Faustino Bauman RN at [facility]
--- NOTE | 2020-09-03 17:54 | P.TS_ITS ---
Transfer Summary Providers Date of Admission: 08/28/20 11:58 Date of Discharge: 09/03/20 Attending Provider at Admission: Braydon Carrington Attending Provider at Transfer: Feli Singh MD Primary Care Provider: Lauren Carranza MD Anticipated Date of Transfer: Anticipated date of transfer: 09/03/20 Receiving Facility & Provider: Receiving Provider: [] Receiving facility: [[facility]] Diagnoses at Discharge Discharge Diagnosis (1) S/P hemodialysis catheter insertion: Status: Acute (2) Acute hyperkalemia: Status: Acute (3) Acute kidney injury: Status: Acute (4) Acute gastritis without bleeding: Status: Acute Qualifiers: Gastritis type: other gastritis Qualified Code(s): K29.00 - Acute gastritis without bleeding (5) Hypertension: Status: Acute Reason for Visit Reason for Visit: G I Bleed/ Renal Problems Hospital Course Hospital Course 65-year-old male with a past medical history of hypertension who recently presented to his primary care provider having 2 to 3 weeks of generalized weakness, increasing fatigue, nausea vomiting and was found to have a creatinine of 5.3, bicarb of 14, anion gap of 22.8 and a calcium of 4.7. Hemoglobin was noted to be 8.6. His last known baseline creatinine is 1.3 from 2019, no interim creatinine numbers are currently available. He had been taking Zofran and Pepto-Bismol at home. Of note his had been diagnosed with Covid on July 16, 2019, at the same time patient also had symptoms of fever and URI, presumed also to have Covid, per review of primary care physicians note he had refused Covid testing at the time. Imaging was notable for CT of the abdomen and pelvis which showed bilaterally atrophic kidneys with mild cortical thinning, moderate to severe atherosclerosis of the abdominal aorta. He has been hypertensive during the course of admission with systolic blood pressure ranging between 1 60-1 80. Per primary care physician's notes, his baseline is known to be around 148/88. He was evaluated by telemetry nephrology and eventually it was recommended he undergo placement of a tunneled hemodialysis catheter and initiation of hemodialysis. He has had hemodialysis session on August 31 September 02 and September 03, tolerated these well. Outpatient dialysis is being coordinated by [facility], however thus far they have not been able to obtain prior Auth from his insurance. It is recommended he undergo renal biopsy once feasible. Hospital course has been notable for falling hemoglobin. Upon admission hemoglobin was at 9, thereafter has been falling to 6.8 today. Patient does have a past history of antral ulcer for which she had an endoscopy in his 40s. FOB has unfortunately been unable to be obtained. No gross melena. However given the more acute drop in his hemoglobin in spite of being on hematocrit, it appears out of proportion to the diagnosis of CKD. Concern from Gerard primary care provider and nephrology for ongoing GI bleeding and endoscopy is recommended to rule out source of bleeding. Patient is also on baby aspirin, noted history of CVA in 2019, documentation unavailable at this present time. Aspirin has discontinued today with following hemoglobin. He received 2 units of blood transfusion today. [facility] person nephrology and GI services are available to enable the above testing and to establish outpatient follow-up and continue hemodialysis. Transfer has been arranged to [facility] in [place] accordingly. 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 Extremities no pedal edema TS Data Data Completed and Pending: Completed Studies During Hospitalization Category Date Time Status CT abdomen pelvis wo con [id number] Stat Cat Scan 08/28/20 10:[address] head wo con* 7 [id number] Routine Cat Scan 08/28/20 14:08 Completed XR chest 1V danish ble [id number] Stat Exams 08/28/20 10:31 Completed CV carotid duplex BI* [id number] Routine Ultrasound 08/29/20 05:00 Completed CV echo complete* [id number] Routine Ultrasound 08/29/20 05:00 Completed CV renal doppler [id number] Routine Ultrasound 08/29/20 05:00 Completed Pending at discharge Category Date Time Status JOSE Screen w/ Ref alka Stat Lab 09/03/20 08:35 Received Anti Double Stran ded DNA AB Stat Lab 09/03/20 08:35 Received Anti-Neutrophil C ytoplasmic AB Rout ine Lab 08/28/20 15:15 Received Anti-Neutrophil C ytoplasmic AB Stat Lab 09/03/20 08:35 Received Complete Blood Co unt w/Auto AM LABS Lab 09/04/20 04:00 Ordered Complete Blood Co unt w/Auto AM LABS Lab 09/05/20 04:00 Ordered Comprehensive Met abolic Panel AM LA BS Lab 09/04/20 04:00 Ordered Immunochemical Fe saurav OCB Stat Lab 09/03/20 12:31 Uncollected Magnesium AM LABS Lab 09/04/20 04:00 Ordered Magnesium AM LABS Lab 09/05/20 04:00 Ordered Miscellaneous Emmy t Routine Lab 09/03/20 14:13 Received Phosphorus AM LAB S Lab 09/04/20 04:00 Ordered Vitamin D 1,25 Di hydroxy Stat Lab 08/28/20 15:15 Received Labs from last 24 hours 09/03/20 09/03/20 09/03/20 14:13 08:35 08:35 WBC RBC Hgb Hct MCV MCH MCHC RDW Plt Count MPV Neut % (Auto) Lymph % (Auto) [place] % (Auto) Eos % (Auto) Baso % (Auto) Neut # (Auto) Lymph # (Auto) [place] # (Auto) Eos # (Auto) Baso # (Auto) Nucleated RBC % (a uto) Nucleated RBCs # Sodium Potassium Chloride Carbon Dioxide Anion Gap BUN Creatinine GFR Calculation Glucose Calculated Osmolal ity Calcium Phosphorus Magnesium Total Bilirubin AST ALT Alkaline Phosphata se Total Protein Albumin Globulin JOSE Screen Anti-ds DNA IgG Ab Pending Mitochondrial DNA Scrn Misc Test Referenc e Pending Ref Test Comments Pending Blood Type Rho(D) Type Antibody Screen Crossmatch 09/03/20 09/03/20 09/03/20 08:35 08:35 05:06 WBC 9.3 RBC 2.05 L Hgb 6.8 L Hct 21.0 L MCV 102.4 H MCH 33.2 MCHC 32.4 RDW 13.4 Plt Count 246 MPV 10.7 H Neut % (Auto) 70.1 Lymph % (Auto) 12.6 [place] % (Auto) 10.2 Eos % (Auto) 6.2 Baso % (Auto) 0.4 Neut # (Auto) 6.54 Lymph # (Auto) 1.2 [place] # (Auto) 1.0 H Eos # (Auto) 0.6 Baso # (Auto) 0.0 Nucleated RBC % (a uto) 0 Nucleated RBCs # 0.0 Sodium Potassium Chloride Carbon Dioxide Anion Gap BUN Creatinine GFR Calculation Glucose Calculated Osmolal ity Calcium Phosphorus Magnesium Total Bilirubin AST ALT Alkaline Phosphata se Total Protein Albumin Globulin JOSE Screen Pending Anti-ds DNA IgG Ab Mitochondrial DNA Scrn Pending Misc Test Referenc e Ref Test Comments Blood Type B Positive Rho(D) Type Positive / 4+ Antibody Screen Negative Crossmatch See Detail 09/03/20 05:06 WBC RBC Hgb Hct MCV MCH MCHC RDW Plt Count MPV Neut % (Auto) Lymph % (Auto) [place] % (Auto) Eos % (Auto) Baso % (Auto) Neut # (Auto) Lymph # (Auto) [place] # (Auto) Eos # (Auto) Baso # (Auto) Nucleated RBC % (a uto) Nucleated RBCs # Sodium 134 L Potassium 3.8 Chloride 97 L Carbon Dioxide 28 Anion Gap 12.8 BUN 22 Creatinine 2.9 H GFR Calculation 22.0 L Glucose 99 Calculated Osmolal ity 281 L Calcium 8.1 L Phosphorus 3.3 Magnesium 1.8 Total Bilirubin 0.2 AST 14 ALT < 5 Alkaline Phosphata se 58 Total Protein 6.2 L Albumin 3.1 L Globulin 3.1 JOSE Screen Anti-ds DNA IgG Ab Mitochondrial DNA Scrn Misc Test Referenc e Ref Test Comments Blood Type Rho(D) Type Antibody Screen Crossmatch Addt'l Data from Hospital Stay: Laboratory Results WBC 9.3 10^3/uL (4.0- 10.0) 09/03/20 05:06 RBC 2.05 10^6/uL (4.1 -5.3) L 09/03/20 05:06 Hgb 6.8 g/dL (11.7-16 .6) L 09/03/20 05:06 Hct 21.0 % (42.0-52.0 ) L 09/03/20 05:06 MCV 102.4 fL (80-94) H 09/03/20 05:06 MCH 33.2 pg (28.0-34. 0) 09/03/20 05:06 MCHC 32.4 g/dL (30.0-3 6.0) 09/03/20 05:06 RDW 13.4 % (12.1-15.1 ) 09/03/20 05:06 Plt Count 246 10^3/cmm (130 -400) 09/03/20 05:06 MPV 10.7 fL (7.4-10.4 ) H 09/03/20 05:06 Neut % (Auto) 70.1 % 09/03/20 05:06 Lymph % (Auto) 12.6 % 09/03/20 05:06 [place] % (Auto) 10.2 % 09/03/20 05:06 Eos % (Auto) 6.2 % 09/03/20 05:06 Baso % (Auto) 0.4 % 09/03/20 05:06 Neut # (Auto) 6.54 10^3/uL (1.8 -7.7) 09/03/20 05:06 Lymph # (Auto) 1.2 10^3/uL (0.8- 4.8) 09/03/20 05:06 [place] # (Auto) 1.0 10^3/uL (0.2- 0.9) H 09/03/20 05:06 Eos # (Auto) 0.6 10^3/uL (0.0- 0.8) 09/03/20 05:06 Baso # (Auto) 0.0 10^3/uL (0.0- 0.1) 09/03/20 05:06 Nucleated RBC % (a uto) 0 % 09/03/20 05:06 Nucleated RBCs # 0.0 /100WBC 09/03/20 05:06 Haptoglobin 233.0 mg/L (30-20 0) H 08/28/20 10:44 PT 15.10 SECONDS (12 .1-14.9) H 08/28/20 10:44 INR 1.16 (0.8-1.2) 08/28/20 10:44 APTT 37.9 SECONDS (23. 9-36.7) H 08/28/20 10:44 Sodium 134 mmol/L (136-1 45) L 09/03/20 05:06 Potassium 3.8 mmol/L (3.5-5 .1) 09/03/20 05:06 Chloride 97 mmol/L (98-107 ) L 09/03/20 05:06 Carbon Dioxide 28 mmol/L (22-29) 09/03/20 05:06 Anion Gap 12.8 (5-19) 09/03/20 05:06 BUN 22 mg/dL (8-23) 09/03/20 05:06 Creatinine 2.9 mg/dL (0.7-1. 2) H 09/03/20 05:06 GFR Calculation 22.0 mL/min (90-1 30) L 09/03/20 05:06 Glucose 99 mg/dL (65-115) 09/03/20 05:06 Calculated Osmolal ity 281 mOsm/kg (285- 295) L 09/03/20 05:06 Lactate 0.6 mmol/L (0.5-2 .2) 08/28/20 15:15 Uric Acid 8.5 mg/dL (3.4-7. 0) H 08/28/20 15:15 Calcium 8.1 mg/dL (8.5-10 .5) L 09/03/20 05:06 Ionized Calcium Me as 0.8 mmol/L (1.1-1 .4) L 08/29/20 18:06 Phosphorus 3.3 mg/dL (2.5-4. 5) 09/03/20 05:06 Magnesium 1.8 mg/dL (1.7-2. 3) 09/03/20 05:06 Iron 54 ug/dL (59-158) L 08/28/20 10:44 TIBC 226 mcg/dl 08/28/20 10:44 % Saturation 23.8 % (20-50) 08/28/20 10:44 Unsat Iron Binding 172 ug/dL (112-34 7) 08/28/20 10:44 Transferrin 181 mg/dL (200-36 0) L 08/28/20 10:44 Total Bilirubin 0.2 mg/dL (0.15-1 .2) 09/03/20 05:06 AST 14 U/L (0-40) 09/03/20 05:06 ALT < 5 U/L (0-41) 09/03/20 05:06 Alkaline Phosphata se 58 IU/L (40-130) 09/03/20 05:06 Creatine Kinase 191 U/L (39-308) 08/28/20 15:15 Troponin T Baselin e 38 ng/L (0-15) H 08/28/20 15:15 Troponin T 120 [place] 34.15 ng/L (0-15) H 08/28/20 17:05 Delta Troponin T -3.85 ABS# (0-10) L 08/28/20 17:05 Troponin T Hi Sens 6Hr 42.26 ng/L (0-15) H 08/28/20 21:34 Troponin T Hi Sens 6Hr Delta 4.26 ng/L (0-12) 08/28/20 21:34 Total Protein 6.2 g/dL (6.6-8.7 ) L 09/03/20 05:06 Albumin 3.1 g/dL (3.5-5.2 ) L 09/03/20 05:06 Globulin 3.1 g/dL (1.3-4.6 ) 09/03/20 05:06 Kaity-2-Sgkrhsrfk 0.4 g/dL (0.2-0.3 ) H 08/28/20 15:15 Neetl-7-Oglrechnt 0.9 g/dL (0.5-0.9 ) 08/28/20 15:15 Wfju-2-Oiarszkp 0.4 g/dL (0.4-0.6 ) 08/28/20 15:15 Oklt-7-Zjujmwkq 0.7 g/dL (0.2-0.5 ) H 08/28/20 15:15 Gamma Globulins 1.4 g/dL (0.8-1.7 ) 08/28/20 15:15 Abnorm Protein Ban d 1 Not Reportable 08/28/20 15:15 Triglycerides 131 mg/dL (0-150) 08/29/20 04:52 Cholesterol 114 mg/dL (0-200) 08/29/20 04:52 LDL Cholesterol, C alc 45 mg/dL (50-129) L 08/29/20 04:52 HDL Cholesterol 43 mg/dL (60-100) L 08/29/20 04:52 LDL/HDL Ratio 1.05 RATIO (0.00- 3.22) 08/29/20 04:52 Cholesterol/HDL Ra ady 2.65 mg/dL (1.0-5 .00) 08/29/20 04:52 Lipase 186 U/L (13-60) H 08/28/20 10:44 Vitamin B12 363 pg/mL (232-12 45) 08/28/20 10:44 25-OH Vitamin D To manda 6 ng/mL (30-100) L 08/28/20 15:15 Folate 5.1 ng/mL (4.5-32 .2) 08/28/20 10:44 Procalcitonin 0.16 ng/mL (0-0.5 ) 08/28/20 10:44 TSH 2.06 uIU/mL (0.27 -4.20) 08/29/20 04:52 PTH Intact 124.0 pg/mL (15-6 5) H 08/28/20 15:15 Calcium (PTH Intac t) 4.7 mg/dL (8.5-10 .5) L* 08/28/20 15:15 Urine Color Straw (Yellow) 08/28/20 18:55 Urine Appearance Clear (CLEAR) 08/28/20 18:55 Urine pH 5 (5-7) 08/28/20 18:55 Ur Specific Gravit y 1.010 (1.005-1.0 30) 08/28/20 18:55 Urine Protein 3+ (Negative) H 08/28/20 18:55 Urine Glucose (UA) Norm (Normal) 08/28/20 18:55 Urine Ketones Negative (Negati ve) 08/28/20 18:55 Urine Blood 3+ (Negative) H 08/28/20 18:55 Urine Nitrate Negative (Negati ve) 08/28/20 18:55 Urine Bilirubin Neg (Negative) 08/28/20 18:55 Urine Urobilinogen Norm mg/dL (Negat caity) 08/28/20 18:55 Ur Leukocyte [place] ase Negative (Negati ve) 08/28/20 18:55 Urine RBC 5-10 /hpf (0-2) H 08/28/20 18:55 Urine WBC 5-10 /hpf (0-5) H 08/28/20 18:55 Ur Squamous Epith Cells 0-4 /hpf (0-5) H 08/28/20 18:55 Amorphous Sediment Not Reportable 08/28/20 18:55 Urine Bacteria 1+ /hpf (NONE) H 08/28/20 18:55 U Random Total Pro tein 189 mg/dL 08/30/20 10:59 Ur Random Sodium 76 mmol/L 08/30/20 10:59 Urine Creatinine 58 mg/dL (39-259) 08/30/20 10:59 U Abnormal Prot Ba nd 2 Not Reportable 08/28/20 15:15 U Abnormal Prot Ba nd 3 Not Reportable 08/28/20 15:15 Pro Electrophoresi s Int See note 08/28/20 15:15 Complement C3 112 mg/dL (90-180 ) 08/28/20 15:15 Complement C4 19 mg/dL (10-40) 08/28/20 15:15 Hep Bs Antigen Non-reactive (No nreactive) 08/30/20 17:52 Hep Bs Antibody 3.5 (11.5-1000) L 08/30/20 17:52 Hepatitis C Antibo dy Non-reactive (No nreactive) 08/30/20 17:52 Blood Type B Positive 09/03/20 08:35 Rho(D) Type Positive / 4+ 09/03/20 08:35 Antibody Screen Negative 09/03/20 08:35 Crossmatch See Detail 09/03/20 08:35 Impressions Abdomen/Pelvis CT 08/28/20 10:30 IMPRESSION: 1. Mild diffuse fluid distention of the small bowel. This may be secondary to a small bowel loop just minimally extending into a patent RIGHT inguinal canal. The distal small bowel is more normal caliber. There is no evidence for ischemia. This small bowel loop extending into the RIGHT inguinal canal is only minimally in the inguinal canal. 2. Normal appendix. 3. Small bilateral pleural effusions with RIGHT lower lobe pneumonia. Chest X-Ray 08/28/20 10:31 Impression: 1. Minimal opacity over surface of right diaphragm and minimal right pleural effusion. 2. Atherosclerosis. Head CT 08/28/20 14:08 IMPRESSION: 1. No acute intracranial hemorrhage. 2. Subacute to remote posterior RIGHT frontal lobe small infarct without hemorrhage. This infarct may explain the patient's LEFT hand numbness. 3. Extensive metallic artifact from what is probably an aneurysm clip along the anterior interhemispheric falx. C-Arm Fluoroscopy 08/30/20 12:38 Impression: Satisfactory placement of a right dialysis catheter. Vitals: Last Vital Signs Temp 98.1 F 09/03/20 15:25 Pulse 68 09/03/20 15:25 Resp 19 H 09/03/20 15:25 BP 155/80 09/03/20 15:25 Pulse Ox 97 09/03/20 15:25 TS Medications Medications Home Medications metoprolol tartrate 25 mg tablet 25 mg PO BID #180 tab 03/21/20 [Rx Confirmed 08/28/20] lisinopril 20 mg tablet 20 mg PO DAILY #90 tab 03/26/20 [Rx Confirmed 08/28/20] omeprazole 40 mg capsule,delayed release 40 mg PO DAILY #30 cap 08/27/20 [Rx Confirmed 08/28/20] ondansetron HCl 4 mg tablet 4 mg PO Q8H PRN #30 tab 08/27/20 [Rx Confirmed 08/28/20] Active Medications Acetaminophen (Acetaminophen 325 Mg Tablet) 650 mg PO Q6H PRN PRN Reason: Mild/Mod Pain Or Temp >/= 101 Last Admin: 08/31/20 17:36 Dose: 650 mg Documented by: Albuterol Sulfate (Albuterol 8 Gm Mdi) 2 puff INHALATION Q4H.RESPIRATORY PRN PRN Reason: SHORTNESS OF BREATH Alprazolam (Alprazolam 0.25 Mg Tablet) 0.25 mg PO BEDTIME [facility] Last Admin: 09/02/20 20:07 Dose: 0.25 mg Documented by: Amlodipine Besylate (Amlodipine 5 Mg Tablet) 5 mg PO DAILY [facility] Last Admin: 09/03/20 08:40 Dose: 5 mg Documented by: Calcium Carbonate (Calcium Carbonate 500 Mg Chew Tablet) 1,000 mg PO TID [facility] Last Admin: 09/03/20 15:05 Dose: 1,000 mg Documented by: Docusate Sodium (Docusate Sodium 100 Mg Capsule) 100 mg PO BID [facility] Last Admin: 09/03/20 17:52 Dose: 100 mg Documented by: Folic Acid (Folic Acid 1 Mg Tablet) 1 mg PO BIDWM [facility] Last Admin: 09/03/20 17:52 Dose: 1 mg Documented by: Heparin Sodium (Beef Lung) (Heparin 5,000 Unit/Ml Inj 1 Ml) 5,000 unit SUBCUT Q12H [facility] Last Admin: 09/03/20 10:52 Dose: Not Given Documented by: Hydralazine HCl (Hydralazine 10 Mg Tablet) 10 mg PO TID [facility] Last Admin: 09/03/20 15:47 Dose: Not Given Documented by: Sodium Chloride (Sodium Chloride 0.9%) 1,000 mls @ 0 mls/hr IV .Q0M PRN PRN Reason: hypotension or symptomatic Isosorbide Mononitrate (Isosorbide Mononitrate Er 30 Mg Tablet) 15 mg PO DAILY [facility] Last Admin: 09/03/20 08:40 Dose: 15 mg Documented by: Lactulose (Lactulose Oral Liq 20 Gm/30 Ml Udc) 10 gm PO Q6H PRN PRN Reason: CONSTIPATION Last Admin: 08/29/20 17:47 Dose: 10 gm Documented by: Lisinopril (Lisinopril 20 Mg Tablet) 40 mg PO DAILY [facility] Last Admin: 09/03/20 08:40 Dose: 40 mg Documented by: Lorazepam (Lorazepam 2 Mg/Ml Inj 1 Ml) 2 mg IM PROTOCOL PRN; Protocol PRN Reason: ALCOWD Lorazepam (Lorazepam 2 Mg Tablet) 2 mg PO PROTOCOL PRN; Protocol PRN Reason: WITHDRAWAL Magnesium Oxide (Magnesium Oxide 400 Mg Tablet) 400 mg PO BID [facility] Last Admin: 09/03/20 17:52 Dose: 400 mg Documented by: Metoprolol Tartrate (Metoprolol Tartrate 50 Mg Tablet) 50 mg PO BID@0900,2100 [facility] Last Admin: 09/03/20 08:54 Dose: 50 mg Documented by: Morphine Sulfate (Morphine 4 Mg/Ml Sdv 1 Ml) 2 mg IVP Q4H PRN PRN Reason: SEVERE PAIN Multivitamins Therapeutic (Multivitamin Therapeutic Tablet) 1 tab PO DAILY [facility] Last Admin: 09/03/20 08:40 Dose: 1 tab Documented by: Ondansetron HCl (Ondansetron 2 Mg/Ml Sdv 2 Ml) 4 mg IVP Q6H PRN PRN Reason: vomiting, or N/V if npo Pantoprazole Sodium (Pantoprazole Dr 40 Mg Tablet) 40 mg PO DAILY [facility] Last Admin: 09/03/20 08:40 Dose: 40 mg Documented by: Thiamine Mononitrate (Thiamine 100 Mg Tablet) 100 mg PO DAILY [facility] Last Admin: 09/03/20 08:41 Dose: 100 mg Documented by: Discharge Plan Discharge Patient Disposition: Xfer Other Condition: Stable Prescriptions: No Action metoprolol tartrate 25 mg tablet 25 mg PO BID Qty: 180 RF: 1 ondansetron HCl [Zofran] 4 mg tablet 4 mg PO Q8H PRN (Reason: nausea and vomiting) Qty: 30 RF: 1 omeprazole 40 mg capsule,delayed release(DR/EC) 40 mg PO DAILY Qty: 30 RF: 1 lisinopril 20 mg tablet 20 mg PO DAILY Qty: 90 RF: 1 Discharge Orders: Discharge Order (Routine); Ordered 09/03/20 Ordered By: Feli Singh Transfer Attestations Time Spent in Transfer Care*: greater than 30 min Quality Metrics Clinical Quality Measures: During this hospital stay, did patient experience: None Coding Level of Care Code Acute Activities Aide for Chg Fwd Diagnoses S/P hemodialysis catheter insertion Z99.2 Acute hyperkalemia E87.5 Acute kidney injury N17.9 Acute gastritis without bleeding K29.00 Gastritis type: other gastritis Hypertension I10
[2020-09-04 13:27] LABS: Anti-Double Strand DNA AB <1 IU/mL
[2020-09-04 14:03] LABS: Anti-Nuclear Antibody Screen NEGATIVE (NEGATIVE)
[2020-09-04 17:38] LABS: Vit D 1,25 (Oh)2, Total 12 pg/mL (18-72); Vit D2 1,25 (Oh)2 <8 pg/mL; Vit D3 1,25 (Oh)2 12 pg/mL
[2020-09-07 23:03] LABS: ANCA Interp Negative (Negative)
[2020-09-12 12:52] LABS: ANCA Interp Negative (Negative)
== END 2020-09-03 19:20 | disposition short-term general hospital (02) | DRG 674 ==
LOC: ER 11:47 → MEDSURG 12:27
PROVIDERS: Internal Medicine; Internal Medicine Nephrology; Surgery; Admitting Provider Internal Medicine; Emergency Provider Family Medicine; PCP Family Medicine; Visit Provider Student in an Organized Health Care Education/Training Program
PROC: 0JH63XZ Insertion of Tunneled Vascular Access Device into Chest Subcutaneous Tissue and Fascia, Percutaneous Approach (ICD-10-PCS; principal; 2020-08-30 12:00)
DX: N17.9 Acute kidney failure, unspecified (principal); E87.1 Hypo-osmolality and hyponatremia; E87.2 Acidosis; I12.9 Hypertensive chronic kidney disease with stage 1 through stage 4 chronic kidney disease, or unspecified chronic kidney disease; N18.9 Chronic kidney disease, unspecified; Z86.16 Personal history of COVID-19; D63.1 Anemia in chronic kidney disease; F10.10 Alcohol abuse, uncomplicated; F17.210 Nicotine dependence, cigarettes, uncomplicated; I16.0 Hypertensive urgency; E83.51 Hypocalcemia; J43.9 Emphysema, unspecified; Z87.01 Personal history of pneumonia (recurrent); I69.998 Other sequelae following unspecified cerebrovascular disease; R20.0 Anesthesia of skin; I25.10 Atherosclerotic heart disease of native coronary artery without angina pectoris; E83.42 Hypomagnesemia; E53.8 Deficiency of other specified B group vitamins; K29.00 Acute gastritis without bleeding
CPT/HCPCS: 36415; 36430; 70450; 71045; 74176; 76000; 77001; 80048; 80053; 80061; 80069; 81001; 82306; 82310; 82330; 82550; 82575; 82607; 82652; 82746; 83010; 83516; 83540; 83550; 83605; 83690; 83735; 83970; 84100; 84145; 84155; 84156; 84165; 84300; 84311; 84443; 84466; 84484; 84550; 85025; 85610; 85730; 86038; 86160; 86225; 86706; 86803; 86850; 86900; 86920; 87340; 90935; 93005; 93306; 93880; 93975; 94640; 96361; 96365; 96366; 96367; 96372; 96375; 96376; 99285; C1750; J0610; J0690; J1644; J2405; J2597; J2704; J3010; J3411; J3475; J3490; J7030; P9016; Q3014; Q4081

== ENCOUNTER → 2020-11-05 09:54 | Outpatient (BNVA) | payer OTHER, SELFPAY | PROVIDERS: PCP Family Medicine; Visit Provider Family Medicine | DX: R91.8 Other nonspecific abnormal finding of lung field (principal) | CPT/HCPCS: 71046 ==

== ENCOUNTER → 2021-01-01 12:24 | Outpatient (BNVA) | payer OTHER, SELFPAY | PROVIDERS: PCP Family Medicine; Visit Provider Family Medicine | DX: C44.319 Basal cell carcinoma of skin of other parts of face (principal) | CPT/HCPCS: 88304 ==

== ENCOUNTER 2021-02-06 10:35 | Outpatient (CLI) | payer MEDICARE, BC, SELFPAY ==
--- NOTE | 2021-02-06 11:00 | CT_ITS ---
WS: [id number] CT LUMBAR SPINE, noncontrast. HISTORY: M47.27 - Other spondylosis with radiculopathy, pain in LEFT hip area and down LEFT leg for 2 weeks. TECHNIQUE: Contiguous 2.5 mm axial imaging are performed. Sagittal and coronal reformats are submitte d and reviewed. All CT scans at [facility] use at least one of these dose optimization techni ques: automated exposure control; mA and/or kV adjustment per patient size (includes targeted exams w here dose is matched to clinical indication); or iterative reconstruction. IV contrast: None DLP: 1984.98 mGycm COMPARISON: None available. Posterior lumbar alignment is normal. Very mild disc space narrowing and desiccation and small endpla te osteophytes throughout the lumbar spine. No fractures or pars defects. L1-2: Mild diffuse annular disc bulging and osteophytic ridging. Disc is partially calcified with yvonne y mild narrowing of the LEFT foramen. No significant stenosis. L2-3: Moderate annular disc bulging with partially calcified disc and small vertebral body osteophyte s. Effacement of ventral CSF. Soft tissue mass LEFT paracentral region with extension cephalad to the disc space. This mass is deforming the LEFT lateral thecal sac at the L2-3 level and extending super iorly. Soft tissue mass measures 2.0 cm in length x 1.6 x 0.9. Very subtle change in density. Mass ex tends into the LEFT foramen. This is best visualized on the axial imaging. L3-4: Diffuse annular disc bulging and osteophytic ridging. Partially calcified disc with mild ligame ntum flavum hypertrophy. Slight effacement of ventral CSF. Mild central and bilateral foraminal steno sis. L4-5: Diffuse annular disc bulging and osteophytic ridging. Disc is partially calcified. RIGHT forami nal disc protrusion contacts the L4 nerve root and displaces it. Mild bilateral foraminal stenosis, R IGHT greater than LEFT. L5-S1: Very shallow central disc protrusion. No stenosis. Moderate calcification noted within the abdominal aorta and proximal renal arteries. Dialysis cathete r is noted. CT/CT lumbar spine wo con* [id number] IMPRESSION: 1. Soft tissue mass LEFT paracentral extending into the superior lateral reces s and foramen at the L2-3 level. This mass is deforming the LEFT lateral thecal sac and displacing the LEFT L3 nerve root. Favor this is probably a large disc protrusion with cephalad extrusion. Recommend follow-up MRI lumbar spine. 2. RIGHT foraminal disc protrusion at L4-5 contacts the L4 nerve root and disp laces it. Mild bilateral foraminal stenosis, RIGHT greater than LEFT. 3. No fractures.
== END 2021-02-06 10:36 | disposition home or self-care (01) ==
PROVIDERS: PCP Family Medicine; Visit Provider Family Medicine
DX: M47.27 Other spondylosis with radiculopathy, lumbosacral region (principal); M51.26 Other intervertebral disc displacement, lumbar region; M48.061 Spinal stenosis, lumbar region without neurogenic claudication
CPT/HCPCS: 72131

== ENCOUNTER → 2021-02-18 09:35 | Outpatient (BNVA) | payer MEDICARE, BC, SELFPAY | PROVIDERS: PCP Family Medicine; Referring Provider Family Medicine; Visit Provider Orthopaedic Surgery | DX: M47.27 Other spondylosis with radiculopathy, lumbosacral region (principal); I25.10 Atherosclerotic heart disease of native coronary artery without angina pectoris | CPT/HCPCS: 72110 ==

== ENCOUNTER → 2021-02-19 08:26 | Outpatient (BNVA) | payer MEDICARE, BC, SELFPAY | PROVIDERS: PCP Family Medicine; Referring Provider Orthopaedic Surgery; Visit Provider Anesthesiology Pain Medicine | DX: G89.29 Other chronic pain (principal); M47.27 Other spondylosis with radiculopathy, lumbosacral region; M51.16 Intervertebral disc disorders with radiculopathy, lumbar region; M79.652 Pain in left thigh; Z79.891 Long term (current) use of opiate analgesic | CPT/HCPCS: 99205 ==

== ENCOUNTER → 2021-02-21 13:16 | Outpatient (BNVA) | payer MEDICARE, BC, SELFPAY | PROVIDERS: PCP Family Medicine; Visit Provider Anesthesiology Pain Medicine | DX: M51.16 Intervertebral disc disorders with radiculopathy, lumbar region (principal); Z79.891 Long term (current) use of opiate analgesic | CPT/HCPCS: 64483; 64484; J1100; J3490 ==

== ENCOUNTER → 2021-03-27 08:08 | Outpatient (BNVA) | payer MEDICARE, BC, SELFPAY | PROVIDERS: PCP Family Medicine; Visit Provider Orthopaedic Surgery | DX: Z01.812 Encounter for preprocedural laboratory examination (principal); Z20.822 Contact with and (suspected) exposure to COVID-19 | CPT/HCPCS: 87635 ==

== ENCOUNTER → 2021-04-02 08:51 | Outpatient (BNVA) | payer OTHER, SELFPAY | PROVIDERS: PCP Family Medicine; Visit Provider Family Medicine | DX: Z20.822 Contact with and (suspected) exposure to COVID-19 (principal); C44.319 Basal cell carcinoma of skin of other parts of face | CPT/HCPCS: 87635 ==

== ENCOUNTER 2021-04-07 10:15 | Day surgery (SDC) | payer MEDICARE, BC, SELFPAY ==
[2021-04-04 08:34] VITALS: BMI 21.4
--- NOTE | 2021-04-04 08:58 | ECG_ITS ---
[facility] Test Date: 2021-04-04 Pat Name: Jimmy Hernandez Department: Room: Gender: Male Entry Level Chemist: : [id number] Requested By: Lamar Tay Order Number: [id number] Kayley MD: RAND ESPARZA Measurements Intervals [place] Rate: 75 P: 41 ME: 147 QRS: 54 QRSD: 105 T: 73 QT: 386 QTc: 431 Interpretive Statements SINUS RHYTHM Compared to ECG 08/28/2020 18:19:29 No significant changes Electronically Signed On 04-05-2021 0:01:11 CDT by RAND ESPARZA [email or web address]
--- NOTE | 2021-04-04 09:19 | ANES.PREANE2 ---
Pre-Anesthetic Assessment Pre-Anesthetic Assessment: Height/Weight: Height 1.75 m Weight 65.771 kg Preop Diagnosis: ESRD Proposed Procedure: Operation Date: 04/07/21 11:35 Proposed Procedures p Micro Discectomy L2/3 82757 M51.16(Not Applicable) - Meliton Leon, Familial anesthetic complications: none Social: Social History: No alcohol and No tobacco Exam: Pre-Anes Outpt Exam: alert, oriented x 3, clear to auscultation bilaterally and regular rate & rhythm Airway: Cervical ROM: WNL MP: 4 Dentition: Full Pulmonary: Pulmonary: COPD CV/HEM: CV/HEM: Anemia Comments: 09/18 echo CONCLUSIONS LV systolic function is normal with EF of 55-60% Diastolic function is normal There is mild mitral regurgitation. Trace tricuspid regurgitation No comparison studies are available : : Chronic renal failuer (PD every night) Metabolic: Metabolic: DM Neuropsych: Neuropsych: CVA Anesthetic Plan: ASA status: 4 Anesthesia: MAC Risk of > 500 ml blood loss (7ml/kg in children): No PFSH Anesthesia PFSH: Medical History Cerebral aneurysm COVID-19 GERD without esophagitis Hypertension Right lower lobe pneumonia Surgical History History of brain surgery History of esophagogastroduodenoscopy (EGD) 2020 Peritoneal dialysis catheter in place S/P hemodialysis catheter insertion (08/30/20) Removed on 12/09/2020 Social History Smoking and tobacco status: former smoker (07/29/20) Alcohol intake: current Data Anesthesia CBC & Chem 7: 04/04/21 09:05 04/04/21 09:05 Other Labs: Laboratory Results - last 48 hr 04/04/21 09:05 WBC Cancelled Corrected WBC Cancelled RBC Cancelled Hgb Cancelled Hct Cancelled MCV Cancelled MCH Cancelled MCHC Cancelled RDW Cancelled Plt Count Cancelled MPV Cancelled Gran % Cancelled Neut % (Auto) Cancelled Lymph % (Auto) Cancelled [place] % (Auto) Cancelled Eos % (Auto) Cancelled Baso % (Auto) Cancelled Neut # (Auto) Cancelled Lymph # (Auto) Cancelled [place] # (Auto) Cancelled Eos # (Auto) Cancelled Baso # (Auto) Cancelled Absolute Gran (auto) Cancelled Nucleated RBC % (auto) Cancelled Nucleated RBCs # Cancelled Cardiac Studies: No Data to Display
[2021-04-04 09:42] LABS: Anion Gap 19.9 (5-19); Blood Urea Nitrogen 60 mg/dL (8-23); Calcium 9.1 mg/dL (8.5-10.5); Carbon Dioxide 23 mmol/L (22-29); Chloride 100 mmol/L (98-107); Glomerular Filtration Rate 8.5 mL/min (90-130); Glucose 114 mg/dL (65-115); Osmolality Calculated 304 mOsm/kg (285-295); Potassium 4.9 mmol/L (3.5-5.1); Sodium 138 mmol/L (136-145)
--- NOTE | 2021-04-07 | XR_ITS ---
WS: [id number] C-ARM RADIOGRAPHS LUMBAR SPINE; 3 IMAGES HISTORY: microdiskectomy COMPARISON: None available. Intraoperative imaging during microdiscectomy. Marker is placed at the L3 level. XR/XR lumbar spine 1V [id number] IMPRESSION: Intraoperative imaging during microdiscectomy.
--- NOTE | 2021-04-07 | SCC_ITS ---
Procedure Done: 1. L2/3 Laminectomy with partial facetectomy 15.3 seconds of fluoroscopic guidance, for a cumulative dose of 3.21 mGy, was provided to Dr. Leon by the radiology department. C-arm images of the lumbar spine were saved for the patient's permanent record. [facility]
[2021-04-07 10:30] VITALS: BP 156/78; PULSE 76; RESP 18; TEMP 36.4; O2SAT 98
--- NOTE | 2021-04-07 10:33 | W.PM.OPSUD ---
Surgery/Procedure H&P Update DATE OF PROCEDURE: April 07, 2021 DATE H&P PERFORMED: 03/11/21 H&P UPDATE INFORMATION: I have reviewed H&P completed within last 30 days, I have examined patient prior to procedure and No changes to prior documentation PREOP DIAGNOSIS: Lumbar radiculopathy L2-3 PLANNED PROCEDURE: Operation Date: 04/07/21 11:35 Proposed Procedures p Micro Discectomy L2/3 80276 M51.16(Not Applicable) - Meliton Leon DO
--- NOTE | 2021-04-07 10:50 | P.ANESUD_ITS ---
Pre-Anesthetic Update Pre-Anesthetic Assessment: Date of Surgery/Procedure: 04/07/21 Preop [place] gnosis: Lumbar radiculopathy L2-3 Proposed Procedure: Operation Date: 04/07/21 11:35 Proposed Procedures p Micro Discectomy L2/3 63684 M51.16(Not Applicable) - Meliton Leon, DO Any changes to Pre-Anesthetic Assessment?: No Last Intake: Intake Last Liquid Date 04/06/21 Last Liquid Time 18:00 Last Solid Date 04/06/21 Last Solid Time 18:00 Vitals: Temperature 97.5 F L 04/07/21 10:30 Temperature Source Temporal Artery S can 04/07/21 10:30 Pulse Rate 76 04/07/21 10:30 Respiratory Rate 18 04/07/21 10:30 Blood Pressure 156/78 04/07/21 10:30 Blood Pressure Roxanne n 104 04/07/21 10:30 Pulse Oximetry 98 04/07/21 10:30 Oxygen Delivery Me thod 04/07/21 10:30 Exam: Pre-Anes Outpt Exam: alert, oriented x 3, clear to auscultation bilaterally and regular rate & rhythm Cardiac Studies: No Data to Display
[2021-04-07] MEDS: sodium chloride 0.9% 1,000 ML 30 ML IV (11:04)
[2021-04-07 11:25] LABS: Anion Gap 22.7 (5-19); Blood Urea Nitrogen 55 mg/dL (8-23); Calcium 9.3 mg/dL (8.5-10.5); Carbon Dioxide 23 mmol/L (22-29); Chloride 98 mmol/L (98-107); Glucose 95 mg/dL (65-115); Osmolality Calculated 303 mOsm/kg (285-295); Potassium 4.7 mmol/L (3.5-5.1); Sodium 139 mmol/L (136-145)
--- NOTE | 2021-04-07 11:54 | SUR.PHASEII ---
lab called with critical lab. Creatinine 7.8. Dr. Sumner and Dr. Leon notified.
--- NOTE | 2021-04-07 12:09 | PM.OP ---
Operative Report Date of procedure: April 07, 2021 Pre-op Diagnosis: Lumbar radiculopathy L2-3 Post-op diagnosis: same Procedure Done: 1. L2/3 Laminectomy with partial facetectomy Surgeon: Meliton Leon Director Of Critical Care: Michael Mukherjee Director Of Critical Care: The neurosurgical nurse practitioner, AUSTEN Ron was needed for his expertise under the microscope. He was important and necessary throughout the procedure to complete in a safe and timely manner. He assisted with patient positioning prepping and draping tissue retraction suctioning of the operative field protection of the dural sac and tissue closure Anesthesia: General Estimated blood loss (mL): 5 Condition: stable Disposition: PACU Procedure: 1. L2/3 Laminectomy with partial facetectomy Patient is brought to the operative suite. After undergoing anesthesia they are placed in the prone position. All areas of impingement are well padded. Patient is then prepped and draped in the normal sterile fashion. A skin incision is made over the L2/3 level. This is confirmed under c-arm guidance. A series of dilators are passed and the tubular retractor is docked on the L2 lamina. A bovie is used to clear the soft tissue off the lamina and the L 2/3 facet joint. A high speed amie is then used to perform the laminectomy and take down the medial aspect of the L 2/3 facet joint. A kerrison rongeure was then used to take down the remaining lamina and smooth the edge of the laminectomy up to the point where the ligamentum flavum attaches. Attention was then brought to the medial aspect of the facet joint. The remaining medial aspect of the superior and inferior aspect of the facet joint were taken down with the kerrison from the pedicle of L2 to L 3. The facet joint had significant hypertrophy. Attention was then brought to the Ligamentum Flavum. The ligament was taken down from the lamina of L2 to L3 and out medially to the remaining facet joint. The ligament was thick. The dura was then exposed. The dura was in good repair. The L2 nerve was then traced with a curette out the L2/3 foramen and found to be adequately decompressed. The L3 nerve was traced with a curette around the L3 pedicle. The lateral recess was opened with a kerrison helping to further decompress the L3 nerve. Wound is then irrigated copiously with saline and surgiflo is used to stop any bleeding. The tubular retractor is removed and the wound is closed with vicryl and monocryl suture. Glue is then used to protect the wound. A sterile dressing is then placed. Patient was then placed in the supine position and transferred to the PACU in stable condition.
[2021-04-07 12:20] VITALS: BP 150/92; PULSE 87; RESP 18; TEMP 36.4; O2SAT 99
[2021-04-07 12:25] VITALS: BP 156/78; PULSE 69; RESP 18; O2SAT 100
[2021-04-07 12:30] VITALS: BP 155/76; PULSE 70; RESP 16; O2SAT 100
--- NOTE | 2021-04-07 12:34 | SUR.PREOP ---
PT AWAKE ALERT ON 3LNC PT SITTING UP IN BED AT 45 DEGREES PT MOVES ALL EXT TO COMMAND, PT IS COUGHING STRONGLY NON PRODUCTIVE OFF AND ON, PT STATES (I SMOKE) . VSS PT IV CLAMPED OFF ON ADMISSION TO PACU DUE TO PT RENAL STATUS AND DIALYSIS DONE LAST NIGHT.
[2021-04-07 12:35] VITALS: BP 152/78; PULSE 67; RESP 17; TEMP 36.4; O2SAT 100
[2021-04-07 13:20] VITALS: BP 176/80; PULSE 64; RESP 18; O2SAT 98
--- NOTE | 2021-04-07 13:48 | ANE.PACU2 ---
Inpatient post-anesthesia follow up: Airway intact: Yes Vital signs: Temperature 97.5 F Pulse Rate 64 Respiratory Rate 18 Blood Pressure 176/80 Pulse Oximetry 98 Oxygen Delivery Me thod Room Air Oxygen Flow Rate 3 Fraction of Inspir ed Oxygen Hydration adequate: Yes Nausea and vomiting: No Pain level: 2 Mental status: Baseline
== END 2021-04-07 13:34 | disposition home or self-care (01) ==
PROVIDERS: Anesthesiology; PCP Family Medicine; Visit Provider Orthopaedic Surgery
PROC: (CPT 63047; principal; 2021-04-07 11:35)
DX: M54.50 Low back pain, unspecified (principal); I10 Essential (primary) hypertension; Z88.2 Allergy status to sulfonamides; Z87.01 Personal history of pneumonia (recurrent); Z87.891 Personal history of nicotine dependence
CPT/HCPCS: 63047; 72020; 76000; 80048; 85025; 93005; J0690; J3010; J3490; J7030

== ENCOUNTER 2021-05-27 07:59 | Outpatient (CLI) | payer MEDICARE, BC, SELFPAY ==
--- NOTE | 2021-05-27 | CT_ITS ---
WS: [id number] CT scan of the chest with IV contrast, additional two-dimensional coronal and sagittal reconstruction was performed. 05/27/2021 Clinical Data: RLL LUNG COLLAPSE Comparison: None. DLP: 811.[address] scans at [facility] use at least one of these dose optimization techniques: automated e xposure control; mA and/or kV adjustment per patient size (includes targeted exams where dose is matc hed to clinical indication); or iterative reconstruction. Findings: There is atelectasis of the right lower lobe. The trachea bifurcates normally into the bronchi. There is narrowing or blockage of the distal inferior right lower lobe bronchus. No nodules, masses or effusions are seen. No pneumonia or pneumothorax is seen. The heart size is nor mal with no pericardial effusion. There is coronary artery calcification. The pulmonary arterial syst em and thoracic aorta demonstrate no abnormalities or dilatations. There is no axillary or significan t mediastinal adenopathy. The upper abdomen shows no acute abnormalities. The left renal cortex appears small. There is moderat e degenerative arthritis of the thoracic vertebral bodies. CT/CT chest w con* [id number] Impression: 1. Right lower lobe atelectasis with partial collapse of the right lower lobe. 2. Negative for pulmonary mass or nodules.
[2021-05-27] MEDS: iodixanol 320 mg/mL 100mL Btl IV (09:27)
== END 2021-05-27 08:00 | disposition home or self-care (01) ==
PROVIDERS: PCP Family Medicine; Visit Provider Internal Medicine Nephrology
DX: J98.19 Other pulmonary collapse (principal); J98.11 Atelectasis
CPT/HCPCS: 71260; Q9967

== ENCOUNTER → 2021-06-05 12:05 | Outpatient (BNVA) | payer MEDICARE, BC, SELFPAY | PROVIDERS: PCP Family Medicine; Visit Provider Internal Medicine Pulmonary Disease | DX: Z01.811 Encounter for preprocedural respiratory examination (principal); J43.2 Centrilobular emphysema | CPT/HCPCS: 87635 ==

== ENCOUNTER 2021-06-10 07:26 | Day surgery (SDC) | payer MEDICARE, BC, SELFPAY ==
[2021-06-09 09:47] VITALS: BMI 23.2
[2021-06-10] VITALS (8 sets, daily range): BP systolic 110–168; BP diastolic 76–88; PULSE 67–107; RESP 18–20; TEMP 36.1–36.7; O2SAT 95–100
[2021-06-10] MEDS: sodium chloride 0.9% 500 ML 999 ML IV (08:16)
--- NOTE | 2021-06-10 08:28 | ANES.PREANE2 ---
Pre-Anesthetic Assessment Pre-Anesthetic Assessment: Height/Weight: Height 1.73 m Weight 69.4 kg Temp Pulse Resp BP Pulse Ox 97.7 F 77 18 168/88 96 06/10/21 07:45 06/10/21 07:45 06/10/21 07:45 06/10/21 07:45 06/10/21 07:45 Preop Diagnosis: Lumbar radiculopathy L2-3 Proposed Procedure: Operation Date: 06/10/21 08:40 Proposed Procedures p Bronchoscopy 56532 R91.8(Not Applicable) - Konstantin Decker DatarMD Familial anesthetic complications: none Was Beta [place] taken within 24 hours: Yes Was Clonidine taken within 24 hours: N/A Last intake: Intake Last Liquid Date 06/09/21 Last Liquid Time 18:00 Last Solid Date 06/09/21 Last Solid Time 18:00 Last Intake: 18:00 Social: Social History: No alcohol and No tobacco Comment: hx smoking Exam: Pre-Anes Outpt Exam: alert and oriented x 3 Airway: Submandibular: WNL Cervical ROM: WNL MP: 3 Dentition: Full Pulmonary: Pulmonary: COPD Comments: collapsed lung CV/HEM: CV/HEM: HTN Comments: mets >4 : : Chronic renal failure Comments: peritoneal dialysis Hepatic: Hepatic: None reported GI: GI: GERD Comments: well controlled Metabolic: Metabolic: None reported Musc/skel: Musc/skel: Lower Back Pain Neuropsych: Neuropsych: TIA Anesthetic Plan: ASA status: 3 Anesthesia: Anesthesia Evaluation and General Risk of > 500 ml blood loss (7ml/kg in children): No Meds/Allergies Current Medications: Current Medications Generic Name Dose Route Start Last Admin Trade Name Freq PRN Reason Stop Dose Admin Sodium Chloride 500 mls @ 999 mls /hr 06/10/21 08:01 06/10/21 08:16 Sodium Chloride 0.9% IV 999 mls/hr .Q31M PRN Administration HYPOTENSION PFSH Anesthesia PFSH: Medical History Cerebral aneurysm COVID-19 GERD without esophagitis Hypertension Right lower lobe pneumonia Surgical History History of brain surgery History of esophagogastroduodenoscopy (EGD) 2020 Peritoneal dialysis catheter in place S/P hemodialysis catheter insertion (08/30/20) Removed on 12/09/2020 Social History (Updated 06/05/21 @ 10:38 by Belen Eason LPN) Smoking and tobacco status: former smoker Quit status (tobacco): has quit using tobacco Year quit tobacco: 2020 Former quit date comment: 2ppd x 30 years Alcohol intake: current Data Anesthesia Cardiac Studies: Echocardiogram Ultrasound 08/29/20
--- NOTE | 2021-06-10 08:44 | W.PM.OPSUD ---
Surgery/Procedure H&P Update DATE OF PROCEDURE: June 10, 2021 DATE H&P PERFORMED: 03/11/21 PREOP DIAGNOSIS: Lumbar radiculopathy L2-3 PLANNED PROCEDURE: Operation Date: 06/10/21 08:40 Proposed Pr:ocedures p Bronchoscopy 68948 R91.8(Not Applicable) - Konstantin Mathew MD bronchoscopic inspection of airway and Clearance of airway secretions, possible endobronchial biopsies if there is any endobronchial lesion And control of bleeding if biopsies are taken; and obtaining bronchoalveolar lavage sample from right lower lobe Mr. Jimmy Hernandez is a 66-year-old male with past medical history COPD, hypertension, GERD, Basal cell carcinoma face,COVID-16 August 2020 hospitalization which resulted in renal failure-since then patient is on peritoneal dialysis and being evaluated for kidney transplant referred by Dr Carranza for pulm clearance for kidney transplant list/surgery. Patient is former cigarette smoker, quit July 2020, 2ppd x 30 year Hx. Peripheral dialysis nightly. Says he was never diagnosed with COPD-never seen a body man. Her recent PFTs show patient has severe airway obstruction with postbronchodilator FEV1 47% with moderate gas transfer defect DLCO 50%. There is significant bronchodilator response. Patient is not on any inhalers. Recent CT chest 05/27/2021 showed right lower lobe atelectasis with partial collapse of the right lower lobe. Upon review of abdominal pelvis CT during his [facility] admission on 08/28/2020 showed right lower lobe pneumonia with small bilateral pleural effusions. Today's plan for bronchoscopic inspection of airway and Clearance of airway secretions, possible endobronchial biopsies if there is any endobronchial lesion and obtaining bronchoalveolar lavage sample from right lower lobe Patient complains of dyspnea on exertion and mild productive cough with whitish sputum. Denied any fevers, chills, unusual tiredness. Physical exam: General: alert, NAD HEENT: conj clear, EOMI, PERRL, mmm, Neck: supple, no meningismus Heme: no cervical LAP Pulmonary: CTAB, no wheezing, rhonchi, crackles Cardiovascular: rrr, nl s1s2, no mrg Abdomen: soft, nt, nd, no r/g, bs+ Extremities: pulses +, no edema, no c/c : no CVA tenderness Skin: intact, no rash MSK: no back or neck pain Neurologic: grossly intact Supplemental Info CT chest 05/27/2021: 1. Right lower lobe atelectasis with partial collapse of the right lower lobe. 2. Negative for pulmonary mass or nodules. Echocardiogram 08/29/2020: LV systolic function is normal with EF of 55-60% Diastolic function is normal. There is mild mitral regurgitation. Trace tricuspid regurgitation. No comparison studies are available CT abdomen pelvis 08/28/2020: 1. Mild diffuse fluid distention of the small bowel. This may be secondary to a small bowel loop just minimally extending into a patent RIGHT inguinal canal. The distal small bowel is more normal caliber. There is no evidence for ischemia. This small bowel loop extending into the RIGHT inguinal canal is only minimally in the inguinal canal. 2. Normal appendix. 3. Small bilateral pleural effusions with RIGHT lower lobe pneumonia. Assessment and plan: #Right lower lobe atelectasis on recent CT chest 05/27/2021-h/o right lower lobe pneumonia as evidenced on CT 08/28/2020 -Recent CT chest 05/27/2021 showed right lower lobe atelectasis -not sure if there is any endobronchial obstruction or mucous plug; patient has history of right lower lobe pneumonia seen on CT chest 08/28/2020 as well. Discussed with patient and his and decided to proceed with bronchoscopy for airway inspection for airway clearance and inspection of any endobronchial lesions and possible endobronchial biopsies -Given significant smoking history-if there is endobronchial growth-need tissue diagnosis to rule out malignancy as it will be a contraindication for renal transplant -Scheduled for bronchoscopic inspection of airway and Clearance of airway secretions, possible endobronchial biopsies if there is any endobronchial lesion And control of bleeding if biopsies are taken; and obtaining bronchoalveolar lavage sample from right lower lobe on 06/10/2021. -Rationale for procedure, nature of procedure, alternatives, risks including Bleeding and pneumothorax were explained in detail to the patient and his . They verbalized full understanding and agreed with the plan. -Patient to follow-up As outpatient in 10 days for follow-up of results Related Problem List Diagnoses (1) Ex-smoker: (2) COPD (chronic obstructive pulmonary disease): Qualifiers: COPD type: emphysema Emphysema type: centrilobular Qualified Code(s): J43.2 - Centrilobular emphysema (3) Right lower lobe pneumonia: Qualifiers: Pneumonia type: due to unspecified organism Qualified Code(s): J18.9 - Pneumonia, unspecified organism (4) Atelectasis of right lung:
[2021-06-10 09:23] LABS: Anion Gap 20.5 (5-19); Blood Urea Nitrogen 54 mg/dL (8-23); Calcium 8.4 mg/dL (8.5-10.5); Carbon Dioxide 19 mmol/L (22-29); Chloride 102 mmol/L (98-107); Glomerular Filtration Rate 6.3 mL/min (90-130); Glucose 95 mg/dL (65-115); Osmolality Calculated 299 mOsm/kg (285-295); Potassium 4.5 mmol/L (3.5-5.1); Sodium 137 mmol/L (136-145)
[2021-06-10] MEDS: lidocaine 1% INJ 20 mL XX (09:26)
--- NOTE | 2021-06-10 09:38 | ANES.PREANE2 ---
Pre-Anesthetic Assessment Pre-Anesthetic Assessment: Height/Weight: Height 1.73 m Weight 69.4 kg Temp Pulse Resp BP Pulse Ox 97.7 F 77 18 168/88 96 06/10/21 07:45 06/10/21 07:45 06/10/21 07:45 06/10/21 07:45 06/10/21 07:45 Preop Diagnosis: Lumbar radiculopathy L2-3 Proposed Procedure: Operation Date: 06/10/21 08:40 Proposed Procedures p Bronchoscopy 14656 R91.8(Not Applicable) - Konstantin ChristierMD Last intake: Intake Last Liquid Date 06/09/21 Last Liquid Time 18:00 Last Solid Date 06/09/21 Last Solid Time 18:00 Exam: Pre-Anes Outpt Exam: clear to auscultation bilaterally (congested lung sounds RLL) and regular rate & rhythm Airway: Submandibular: WNL Cervical ROM: WNL MP: 3 Dentition: Full Anesthetic Plan: ASA status: 3 Anesthesia: General Risk of > 500 ml blood loss (7ml/kg in children): No Meds/Allergies Current Medications: Current Medications Generic Name Dose Route Start Last Admin Trade Name Freq PRN Reason Stop Dose Admin Sodium Chloride 500 mls @ 999 mls /hr 06/10/21 08:01 06/10/21 08:16 Sodium Chloride 0.9% IV 999 mls/hr .Q31M PRN Administration HYPOTENSION PFSH Anesthesia PFSH: Medical History Cerebral aneurysm COVID-19 GERD without esophagitis Hypertension Right lower lobe pneumonia Surgical History History of brain surgery History of esophagogastroduodenoscopy (EGD) 2020 Peritoneal dialysis catheter in place S/P hemodialysis catheter insertion (08/30/20) Removed on 12/09/2020 Social History (Updated 06/05/21 @ 10:38 by Belen Eason LPN) Smoking and tobacco status: former smoker Quit status (tobacco): has quit using tobacco Year quit tobacco: 2020 Former quit date comment: 2ppd x 30 years Alcohol intake: current Data Anesthesia CBC & Chem 7: 06/10/21 08:54 Other Labs: Laboratory Results - last 48 hr 06/10/21 08:54 Sodium 137 Potassium 4.5 Chloride 102 Carbon Dioxide 19 L Anion Gap 20.5 H BUN 54 H Creatinine 8.5 H* GFR Calculation 6.3 L Glucose 95 Calculated Osmolality 299 H Calcium 8.4 L Cardiac Studies: Echocardiogram Ultrasound 08/29/20
--- NOTE | 2021-06-10 10:10 | PC.NURSE ---
1003 received patient from phase 1, patient awake, alert oriented x3. denies c/o. lungs clear bilat. no distress. 1006 , eugene, at bedside
--- NOTE | 2021-06-10 10:12 | XR_ITS ---
WS: [id number] XR chest 1V portable [id number] REASON FOR EXAM: post bronchoscopy FINDINGS: Moderate tortuosity and ectasia of the thoracic aorta. Normal heart size. Previous CT scan 05/27/2021 demonstrated medial basilar right lung segment atelectasis. There remains some degree of retrocardiac density on the right with obscuration of a portion of the right hemidiaphragm. There is no right pneumothorax. The left hemithorax is unremarkable. XR/XR chest 1V portable [id number] IMPRESSION: No postprocedural complication. Probable residual atelectasis/consolidation of the medial basal segment of the right lower lobe.
--- NOTE | 2021-06-10 10:20 | PC.NURSE ---
1020 radiology here for chest xray.
--- NOTE | 2021-06-10 10:21 | P.OP_ITS ---
Operative Report Date of procedure: Procedure: Flexible bronchoscopy with airway inspection, airway clearance of secretions and obtaining bronchoalveolar lavage sample Pre-Operative Diagnosis: Pneumonia Post-Operative Diagnosis: Same Indication: Right lower lobe atelectasis with partial collapse of the right lower lobe. Anesthesia: General: Managed by anesthesia team Pre-procedure Evaluation: Patient was evaluated clinically and ancillary testing reviewed. The risk of having active MTB infection is very low in my clinical judgement. ASA: 3 Malampati score: unable to evaluate due to presence of endotracheal tube Consent: Consents were obtained from patient and placed in the chart Procedure Details: Time out was performed by the procedure team and nursing staff. Vent support maintained on Fio2 100. The bronchoscope was introduced through the ETT. A bronchoscopic airway exam was performed to evaluate the visible tracheobronchial tree to the segmental level. Summary of Significant Findings: -Bronchoscope passed through ET tube, 6 ml 1% lidocaine instilled into the trachea, both right and left main bronchus. Distal trachea and main liya visualized which were sharp and normal. Then the scope was left bronchial tree was assessed to include the left mainstem bronchus, RAH, Lingula, and LLL bronchi to the segmental and subsegmental level. No active bleeding noted. Mucosa appeared normal. No overt secretions noted. Then the scope was passed through the right bronchial tree was assessed to include the right mainstem bronchus, RBI, and RUL/RML/RLL bronchi to the segmental and subsegmental levels. No active bleeding noted. Mucosa appeared edematous in the lower lobe segments compressing right middle lobe opening. Thick mucoid secretions noted through right lower lobe and some in the right upper lobe. All the secretions were suctioned right away and BAL obtained from right lower lobe the bronchoscope was then removed and the procedure terminated. Estimated Blood Loss: None Specimens: Bronchoalveolar lavage was taken from right lower lobe and sent for microbiology cultures and cytology. Complications:None; patient tolerated the procedure well. Chest x-ray:No postprocedural complication. Probable residual atelectasis/consolidation of the medial basal segment of the right lower lobe. Disposition: Postprocedure patient is clinically stable Home Konstantin Mathew MD Pulmonary critical Care Medicine [facility] Pre-op Diagnosis: right lower lobe atelectasis
--- NOTE | 2021-06-10 10:35 | PC.NURSE ---
1030 patient resting comfortably. denies c/o. at bedside. no distress noted.
[2021-06-10 10:45] LABS: Apprearance, Bronch Wash Bloody (CLEAR); Color, Bronc Wash Slight Pink
[2021-06-10 10:46] LABS: Bronch Source Right and Left Lobes; PATH Referral Yes
[2021-06-10 11:07] LABS: Total Cells Counted Bronch 200
[2021-06-14 21:37] LABS: Legionella Specimen Source BRONCH
== END 2021-06-10 11:25 | disposition home or self-care (01) ==
PROVIDERS: Anesthesiology; PCP Family Medicine; Visit Provider Internal Medicine Pulmonary Disease
PROC: 0BJ08ZZ Inspection of Tracheobronchial Tree, Via Natural or Artificial Opening Endoscopic (ICD-10-PCS; CPT 31622; principal; 2021-06-10 08:30)
DX: J18.9 Pneumonia, unspecified organism (principal); J98.11 Atelectasis; J43.2 Centrilobular emphysema; Z87.891 Personal history of nicotine dependence; I10 Essential (primary) hypertension; K21.9 Gastro-esophageal reflux disease without esophagitis; Z86.73 Personal history of transient ischemic attack (TIA), and cerebral infarction without residual deficits; Z86.16 Personal history of COVID-19
CPT/HCPCS: 31622; 31624; 36415; 71045; 80048; 80500; 87015; 87070; 87102; 87116; 87205; 87206; 87278; 87801; 88112; 88305; 89050; J1100; J2405; J2704; J2710; J3010; J3490; J7040

== ENCOUNTER → 2021-06-16 09:44 | Outpatient (BNVA) | payer MEDICARE, BC, SELFPAY | PROVIDERS: PCP Family Medicine; Referring Provider Family Medicine; Visit Provider Specialist | DX: N18.9 Chronic kidney disease, unspecified (principal); Z09 Encounter for follow-up examination after completed treatment for conditions other than malignant neoplasm; Z86.73 Personal history of transient ischemic attack (TIA), and cerebral infarction without residual deficits; Z86.16 Personal history of COVID-19; Z87.891 Personal history of nicotine dependence | CPT/HCPCS: 99204 ==

== ENCOUNTER 2021-07-14 10:11 | Outpatient (CLI) | payer MEDICARE, BC, SELFPAY | END 2021-07-14 10:12 | disposition home or self-care (01) | LOC: LAB 10:20 | PROVIDERS: PCP Family Medicine; Visit Provider Transplant Surgery | DX: Z01.812 Encounter for preprocedural laboratory examination (principal) | CPT/HCPCS: 86682; 86777 ==

== ENCOUNTER → 2021-09-29 08:16 | Outpatient (BNVA) | payer MEDICARE, BC, SELFPAY | PROVIDERS: PCP Family Medicine; Visit Provider Internal Medicine Pulmonary Disease | DX: Z01.811 Encounter for preprocedural respiratory examination (principal); J18.9 Pneumonia, unspecified organism; J43.2 Centrilobular emphysema; Z87.891 Personal history of nicotine dependence; K21.9 Gastro-esophageal reflux disease without esophagitis; I10 Essential (primary) hypertension; Z86.16 Personal history of COVID-19 | CPT/HCPCS: 99214 ==

== ENCOUNTER → 2021-10-14 13:49 | Outpatient (BNVA) | payer MEDICARE, BC, SELFPAY | PROVIDERS: PCP Family Medicine; Visit Provider Internal Medicine Pulmonary Disease | DX: J43.2 Centrilobular emphysema (principal); J22 Unspecified acute lower respiratory infection; Z01.811 Encounter for preprocedural respiratory examination; J18.9 Pneumonia, unspecified organism; Z87.891 Personal history of nicotine dependence; I10 Essential (primary) hypertension; K21.9 Gastro-esophageal reflux disease without esophagitis; C44.310 Basal cell carcinoma of skin of unspecified parts of face; R06.02 Shortness of breath | CPT/HCPCS: 71046; 82785; 86003; 99214 ==

== ENCOUNTER 2021-12-29 06:00 | Outpatient (RCR) | payer MEDICARE, BC, SELFPAY | END 2022-01-28 23:59 | disposition home or self-care (01) | LOC: PULRHB 06:00 | PROVIDERS: PCP Family Medicine; Visit Provider Internal Medicine Pulmonary Disease | DX: J43.2 Centrilobular emphysema (principal); Z01.811 Encounter for preprocedural respiratory examination; J30.81 Allergic rhinitis due to animal (cat) (dog) hair and dander | CPT/HCPCS: 99214 ==

== ENCOUNTER 2022-01-09 08:55 | Outpatient (CLI) | payer MEDICARE, BC, SELFPAY | END 2022-01-09 08:56 | disposition home or self-care (01) | LOC: LAB 09:04 | PROVIDERS: PCP Family Medicine; Visit Provider Internal Medicine Nephrology | DX: N18.6 End stage renal disease (principal); D72.829 Elevated white blood cell count, unspecified | CPT/HCPCS: 36415; 83520 ==

== ENCOUNTER 2022-05-11 07:08 | Outpatient (CLI) | payer MEDICARE, BC, SELFPAY ==
[2022-05-11 07:40] LABS: Basophils # 0.1 10^3/uL (0.0-0.1); Basophils % 0.8 %; Eosinophils # 0.1 10^3/uL (0.0-0.8); Eosinophils % 0.5 %; Hemoglobin 8.8 g/dL (11.7-16.6); Lymphocytes # 0.5 10^3/uL (0.8-4.8); Lymphocytes % 5.5 %; Mean Corpuscular HGB Conc 31.4 g/dL (30.0-36.0); Mean Corpuscular Hemoglobin 31.8 pg (28.0-34.0); Mean Corpuscular Volume 101.1 fl (80-94); Mean Platelet Volume 9.4 fL (7.4-10.4); Monocytes # 1.2 10^3/uL (0.2-0.9); Monocytes % 12.7 %; Nucleated Red Blood Cells % 0 %; Platelet Count 463 10^3/cmm (130-400); Red Blood Count 2.77 10^6/uL (4.1-5.3); Red Cell Distribution Width 17.7 % (12.1-15.1); White Blood Count 9.2 10^3/uL (4.0-10.0)
[2022-05-11 07:42] LABS: Miscellaneous Test See Scanned Lab Rpt
[2022-05-11 08:02] LABS: Bilirubin Urine Neg (Negative); Blood Urine Neg (Negative); Glucose Urine UA Norm (Normal); Ketones Urine Negative (Negative); Leukocyte Esterase Urine Negative (Negative); Nitrate Urine Negative (Negative); Protein Urine Neg (Negative); Squamous Epithelial Cell Urine 0-4 /hpf (0-5); Urine Appearance Clear (CLEAR); Urine Color Straw (Yellow); Urobilinogen Urine Norm (Negative); WBC Urine 0-4 /hpf (0-5); pH Urine 5 (5-7)
[2022-05-11 08:03] LABS: Add Urine Culture? No; Bacteria Urine TRACE /hpf
[2022-05-11 08:06] LABS: Anion Gap 14.8 (5-19); Blood Urea Nitrogen 41 mg/dL (8-23); Calcium 9.3 mg/dL (8.5-10.5); Carbon Dioxide 19 mmol/L (22-29); Chloride 108 mmol/L (98-107); Glomerular Filtration Rate 21.9 mL/min (90-130); Glucose 111 mg/dL (65-115); Phosphorus 3.1 mg/dL (2.5-4.5); Potassium 4.8 mmol/L (3.5-5.1); Sodium 137 mmol/L (136-145)
[2022-05-11 08:11] LABS: Slide Review Slide Review Perform
[2022-05-11 08:12] LABS: Neutrophils % 80.5 %
== END 2022-05-11 07:09 | disposition home or self-care (01) ==
LOC: LAB 07:16
PROVIDERS: PCP Family Medicine; Visit Provider Internal Medicine
DX: Z48.22 Encounter for aftercare following kidney transplant (principal); Z94.0 Kidney transplant status; Z79.899 Other long term (current) drug therapy
CPT/HCPCS: 36415; 80069; 80197; 81001; 83735; 85025

== ENCOUNTER 2022-05-26 07:16 | Outpatient (CLI) | payer MEDICARE, BC, SELFPAY ==
[2022-05-26 08:09] LABS: Basophils # 0.1 10^3/uL (0.0-0.1); Basophils % 1.1 %; Eosinophils # 0.1 10^3/uL (0.0-0.8); Hematocrit 30.9 % (42.0-52.0); Hemoglobin 9.5 g/dL (11.7-16.6); Lymphocytes # 0.5 10^3/uL (0.8-4.8); Lymphocytes % 8.2 %; Mean Corpuscular HGB Conc 30.7 g/dL (30.0-36.0); Mean Corpuscular Hemoglobin 31.3 pg (28.0-34.0); Mean Corpuscular Volume 101.6 fl (80-94); Mean Platelet Volume 9.5 fL (7.4-10.4); Monocytes # 0.7 10^3/uL (0.2-0.9); Monocytes % 11.9 %; Neutrophils # 4.29 10^3/uL (1.8-7.7); Neutrophils % 70.3 %; Nucleated Red Blood Cells % 0 %; Platelet Count 368 10^3/cmm (130-400); Red Blood Count 3.04 10^6/uL (4.1-5.3); Red Cell Distribution Width 16.5 % (12.1-15.1); White Blood Count 6.1 10^3/uL (4.0-10.0)
[2022-05-26 08:13] LABS: Slide Review Slide Review Perform
[2022-05-26 08:15] LABS: Bacteria Urine TRACE /hpf; Bilirubin Urine Neg (Negative); Blood Urine Neg (Negative); Glucose Urine UA Norm (Normal); Ketones Urine Negative (Negative); Leukocyte Esterase Urine Negative (Negative); Nitrate Urine Negative (Negative); Protein Urine Neg (Negative); Urine Appearance Clear (CLEAR); Urine Color Colorless (Yellow); Urobilinogen Urine Norm (Negative); pH Urine 7 (5-7)
[2022-05-26 08:16] LABS: Add Urine Culture? No
[2022-05-26 08:31] LABS: Urine Creatinine 44 mg/dL (39-259); Urine Protein Random 13 mg/dL
[2022-05-26 08:35] LABS: Albumin Level 4.3 g/dL (3.5-5.2); Anion Gap 15.6 (5-19); Blood Urea Nitrogen 36 mg/dL (8-23); Calcium 9.2 mg/dL (8.5-10.5); Carbon Dioxide 24 mmol/L (22-29); Chloride 103 mmol/L (98-107); Glomerular Filtration Rate 22.8 mL/min (90-130); Glucose 129 mg/dL (65-115); Magnesium 1.5 mg/dL (1.7-2.3); Phosphorus 3.4 mg/dL (2.5-4.5); Potassium 5.6 mmol/L (3.5-5.1); Sodium 137 mmol/L (136-145)
== END 2022-05-26 07:17 | disposition home or self-care (01) ==
PROVIDERS: PCP Family Medicine; Visit Provider Internal Medicine
DX: Z79.899 Other long term (current) drug therapy (principal); Z94.0 Kidney transplant status; Z48.22 Encounter for aftercare following kidney transplant
CPT/HCPCS: 36415; 80069; 80197; 81001; 82570; 83735; 84156; 85025

== ENCOUNTER → 2022-06-08 14:00 | Outpatient (BNVA) | payer MEDICARE, BC, SELFPAY | PROVIDERS: PCP Family Medicine; Visit Provider Internal Medicine Pulmonary Disease | DX: R06.02 Shortness of breath (principal); J43.2 Centrilobular emphysema; Z87.891 Personal history of nicotine dependence; Z94.0 Kidney transplant status | CPT/HCPCS: 99214 ==

== ENCOUNTER 2022-06-16 06:34 | Outpatient (CLI) | payer MEDICARE, BC, SELFPAY ==
[2022-06-16 07:24] LABS: Basophils % 0.8 %; Eosinophils # 0.1 10^3/uL (0.0-0.8); Eosinophils % 2.1 %; Hematocrit 32.2 % (42.0-52.0); Hemoglobin 10.2 g/dL (11.7-16.6); Lymphocytes # 0.6 10^3/uL (0.8-4.8); Lymphocytes % 11.1 %; Mean Corpuscular HGB Conc 31.7 g/dL (30.0-36.0); Mean Corpuscular Hemoglobin 31.8 pg (28.0-34.0); Mean Corpuscular Volume 100.3 fl (80-94); Mean Platelet Volume 9.3 fL (7.4-10.4); Monocytes # 0.7 10^3/uL (0.2-0.9); Monocytes % 12.4 %; Neutrophils # 3.54 10^3/uL (1.8-7.7); Neutrophils % 67.5 %; Nucleated Red Blood Cells % 0 %; Platelet Count 399 10^3/cmm (130-400); Red Blood Count 3.21 10^6/uL (4.1-5.3); Red Cell Distribution Width 14.6 % (12.1-15.1); White Blood Count 5.2 10^3/uL (4.0-10.0)
[2022-06-16 07:43] LABS: Albumin Level 4.5 g/dL (3.5-5.2); Anion Gap 16.6 (5-19); Blood Urea Nitrogen 42 mg/dL (8-23); Calcium 9.5 mg/dL (8.5-10.5); Carbon Dioxide 20 mmol/L (22-29); Chloride 103 mmol/L (98-107); Glomerular Filtration Rate 23.8 mL/min (90-130); Glucose 107 mg/dL (65-115); Magnesium 1.9 mg/dL (1.7-2.3); Phosphorus 4.3 mg/dL (2.5-4.5); Potassium 4.6 mmol/L (3.5-5.1); Sodium 135 mmol/L (136-145)
[2022-06-16 07:58] LABS: Creatinine Urine, Random 47 mg/dL (39-259); Microalbumin Random Urine 18 ug/dL (0-20)
[2022-06-16 08:05] LABS: Miscellaneous Test See Scanned Lab Rpt
[2022-06-16 08:05] LABS: Microalbum Creatinine Ratio Ur 383 mg/dL (0-20)
[2022-06-16 08:06] LABS: Add Urine Culture? No; Bacteria Urine TRACE /hpf; Bilirubin Urine Neg (Negative); Blood Urine Neg (Negative); Glucose Urine UA Norm (Normal); Ketones Urine Negative (Negative); Leukocyte Esterase Urine Negative (Negative); Mucus Urine TRACE /hpf; Nitrate Urine Negative (Negative); Protein Urine Neg (Negative); RBC Urine 0-4 /hpf (0-2); Squamous Epithelial Cell Urine 0-4 /hpf (0-5); Urine Appearance Clear (CLEAR); Urine Color Yellow (Yellow); Urobilinogen Urine Norm (Negative); WBC Urine 0-4 /hpf (0-5); pH Urine 5 (5-7)
[2022-06-16 08:12] LABS: Slide Review Slide Review Perform
[2022-06-20 03:45] LABS: BK Virus DNA Real Time PCR NOT DETECTED Log cps/mL; BK Virus DNA Real Time PCR NOT DETECTED copies/mL
[2022-06-20 16:55] LABS: CMV DNA By PCR NOT DETECTED; CMV DNA, QN PCR NOT DETECTED Log IU/mL; SOURCE WHOLE BLOOD
[2022-06-22 16:30] LABS: BK VIRUS DNA, QN PCR NOT DETECTED copies/mL; BK VIRUS DNA, QN RT PCR NOT DETECTED Log cps/mL; SOURCE PLASMA
== END 2022-06-16 06:35 | disposition home or self-care (01) ==
LOC: LAB 06:39
PROVIDERS: PCP Family Medicine; Visit Provider Internal Medicine Nephrology
DX: Z48.22 Encounter for aftercare following kidney transplant (principal); Z94.0 Kidney transplant status; Z79.899 Other long term (current) drug therapy
CPT/HCPCS: 36415; 80069; 80197; 81001; 82044; 83735; 85025; 87496; 87798; 87799

== ENCOUNTER 2022-06-29 06:30 | Outpatient (CLI) | payer MEDICARE, BC, SELFPAY ==
[2022-06-29 07:28] LABS: Hematocrit 31.6 % (42.0-52.0); Hemoglobin 9.9 g/dL (11.7-16.6); Mean Corpuscular HGB Conc 31.3 g/dL (30.0-36.0); Mean Corpuscular Hemoglobin 31.2 pg (28.0-34.0); Mean Corpuscular Volume 99.7 fl (80-94); Mean Platelet Volume 9.8 fL (7.4-10.4); Platelet Count 307 10^3/cmm (130-400); Red Blood Count 3.17 10^6/uL (4.1-5.3); Red Cell Distribution Width 13.9 % (12.1-15.1); White Blood Count 4.9 10^3/uL (4.0-10.0)
[2022-06-29 07:29] LABS: Albumin Level 4.4 g/dL (3.5-5.2); Blood Urea Nitrogen 43 mg/dL (8-23); Calcium 9.3 mg/dL (8.5-10.5); Carbon Dioxide 19 mmol/L (22-29); Chloride 103 mmol/L (98-107); Glomerular Filtration Rate 22.8 mL/min (90-130); Glucose 109 mg/dL (65-115); Magnesium 1.8 mg/dL (1.7-2.3); Phosphorus 3.6 mg/dL (2.5-4.5); Sodium 135 mmol/L (136-145)
[2022-06-29 07:47] LABS: Add Urine Culture? No; Bacteria Urine TRACE /hpf; Bilirubin Urine Neg (Negative); Blood Urine 2+ (Negative); Glucose Urine UA Norm (Normal); Ketones Urine Negative (Negative); Leukocyte Esterase Urine Negative (Negative); Nitrate Urine Negative (Negative); Protein Urine 1+ (Negative); RBC Urine 0-4 /hpf (0-2); Specific Gravity, Urine 1.005 (1.005-1.030); Urine Appearance Clear (CLEAR); Urine Color Straw (Yellow); Urobilinogen Urine Norm (Negative); pH Urine 6.5 (5-7)
[2022-06-29 08:03] LABS: Absolute Eosinophils 0.1 10^3/cmm (0.0-0.7); Absolute Segmented Neutrophil 3.1 10/cmm (1.6-7.1); Band Neutrophils Absolute 0.1 10^3/cmm (0.0-1.2); Eosinophils 4 %; Lymphocytes 23 %; Lymphocytes Absolute 1.1 10^3/cmm (1.2-3.4); Monocytes Absolute 0.4 10^3/cmm (0.1-0.6); Segmented Neutrophils 63 %; Total Cells Counted 100 (0-100)
[2022-06-29 08:04] LABS: Absolute Neutrophil 3.2 10^3/cmm (1.4-6.5); Anisocytosis Trace; Platelet Estimate Normal (Normal)
[2022-06-29 08:04] LABS: Urine Creatinine 49 mg/dL (39-259)
[2022-06-29 08:08] LABS: UPRO/UCREAT Ratio 0.86 mg/mg CR; Urine Protein Random 42 mg/dL
[2022-07-02 20:10] LABS: BK VIRUS DNA, QN PCR NOT DETECTED copies/mL; BK VIRUS DNA, QN RT PCR NOT DETECTED Log cps/mL; SOURCE WHOLE BLOOD
[2022-07-03 05:05] LABS: CMV DNA By PCR NOT DETECTED; CMV DNA, QN PCR NOT DETECTED Log IU/mL; SOURCE WHOLE BLOOD
[2022-07-03 16:20] LABS: BK Virus DNA Real Time PCR NOT DETECTED Log cps/mL; BK Virus DNA Real Time PCR NOT DETECTED copies/mL
== END 2022-06-29 06:31 | disposition home or self-care (01) ==
PROVIDERS: PCP Family Medicine; Visit Provider Internal Medicine Nephrology
DX: Z48.22 Encounter for aftercare following kidney transplant (principal); Z79.899 Other long term (current) drug therapy; Z94.0 Kidney transplant status
CPT/HCPCS: 36415; 80069; 80197; 81001; 82570; 83735; 84156; 85007; 85027; 87086; 87496; 87798; 87799

== ENCOUNTER 2022-07-07 06:35 | Outpatient (CLI) | payer MEDICARE, BC, SELFPAY ==
[2022-07-07 08:19] LABS: Basophils # 0.1 10^3/uL (0.0-0.1); Basophils % 1.5 %; Eosinophils # 0.1 10^3/uL (0.0-0.8); Hematocrit 29.7 % (42.0-52.0); Hemoglobin 9.2 g/dL (11.7-16.6); Lymphocytes # 0.7 10^3/uL (0.8-4.8); Lymphocytes % 13.9 %; Mean Corpuscular Hemoglobin 31.5 pg (28.0-34.0); Mean Corpuscular Volume 101.7 fl (80-94); Mean Platelet Volume 10.2 fL (7.4-10.4); Monocytes # 0.7 10^3/uL (0.2-0.9); Monocytes % 14.7 %; Neutrophils # 2.82 10^3/uL (1.8-7.7); Neutrophils % 60.1 %; Nucleated Red Blood Cells % 0 %; Platelet Count 318 10^3/cmm (130-400); Red Blood Count 2.92 10^6/uL (4.1-5.3); White Blood Count 4.7 10^3/uL (4.0-10.0)
[2022-07-07 08:19] LABS: Bilirubin Urine Neg (Negative); Blood Urine Neg (Negative); Creatinine Urine, Random 40 mg/dL (39-259); Glucose Urine UA Norm (Normal); Ketones Urine Negative (Negative); Leukocyte Esterase Urine Negative (Negative); Microalbumin Random Urine 17 ug/dL (0-20); Nitrate Urine Negative (Negative); Protein Urine Trace (Negative); Urine Appearance Clear (CLEAR); Urine Color Straw (Yellow); Urobilinogen Urine Norm (Negative); pH Urine 7 (5-7)
[2022-07-07 08:20] LABS: RBC Urine 0-4 /hpf (0-2)
[2022-07-07 08:21] LABS: Add Urine Culture? No; Microalbum Creatinine Ratio Ur 425 mg/dL (0-20); Squamous Epithelial Cell Urine RARE /hpf (0-5); WBC Urine RARE /hpf (0-5)
[2022-07-07 08:25] LABS: Albumin Level 4.4 g/dL (3.5-5.2); Anion Gap 16.2 (5-19); Blood Urea Nitrogen 44 mg/dL (8-23); Carbon Dioxide 20 mmol/L (22-29); Chloride 106 mmol/L (98-107); Glucose 97 mg/dL (65-115); Magnesium 2.1 mg/dL (1.7-2.3); Phosphorus 3.3 mg/dL (2.5-4.5); Potassium 5.2 mmol/L (3.5-5.1); Sodium 137 mmol/L (136-145)
[2022-07-07 09:12] LABS: Slide Review Slide Review Perform
[2022-07-12 11:19] LABS: BK VIRUS DNA, QN PCR NOT DETECTED copies/mL; BK VIRUS DNA, QN RT PCR NOT DETECTED Log cps/mL; SOURCE BLOOD
[2022-07-12 14:45] LABS: CMV DNA By PCR NOT DETECTED; CMV DNA, QN PCR NOT DETECTED Log IU/mL; SOURCE PLASMA
[2022-07-12 14:53] LABS: BK Virus DNA Real Time PCR NOT DETECTED Log cps/mL; BK Virus DNA Real Time PCR NOT DETECTED copies/mL
== END 2022-07-07 06:36 | disposition home or self-care (01) ==
LOC: LAB 06:37
PROVIDERS: PCP Family Medicine; Visit Provider Internal Medicine
DX: R31.1 Benign essential microscopic hematuria (principal)
CPT/HCPCS: 36415; 80069; 80197; 81001; 82044; 83735; 85025; 87086; 87496; 87798; 87799

== ENCOUNTER 2022-07-20 06:36 | Outpatient (CLI) | payer MEDICARE, BC, SELFPAY ==
[2022-07-20 07:16] LABS: Basophils # 0.1 10^3/uL (0.0-0.1); Basophils % 1.1 %; Eosinophils # 0.1 10^3/uL (0.0-0.8); Eosinophils % 2.5 %; Hematocrit 32.1 % (42.0-52.0); Hemoglobin 9.9 g/dL (11.7-16.6); Lymphocytes # 0.6 10^3/uL (0.8-4.8); Lymphocytes % 13.2 %; Mean Corpuscular HGB Conc 30.8 g/dL (30.0-36.0); Mean Corpuscular Hemoglobin 31.6 pg (28.0-34.0); Mean Corpuscular Volume 102.6 fl (80-94); Mean Platelet Volume 9.8 fL (7.4-10.4); Monocytes # 0.7 10^3/uL (0.2-0.9); Monocytes % 16.4 %; Neutrophils # 2.62 10^3/uL (1.8-7.7); Nucleated Red Blood Cells % 0 %; Platelet Count 369 10^3/cmm (130-400); Red Blood Count 3.13 10^6/uL (4.1-5.3); Red Cell Distribution Width 14.1 % (12.1-15.1); White Blood Count 4.4 10^3/uL (4.0-10.0)
[2022-07-20 07:36] LABS: Albumin Level 4.1 g/dL (3.5-5.2); Anion Gap 18.8 (5-19); Blood Urea Nitrogen 40 mg/dL (8-23); Calcium 9.2 mg/dL (8.5-10.5); Carbon Dioxide 19 mmol/L (22-29); Chloride 107 mmol/L (98-107); Glomerular Filtration Rate 20.3 mL/min (90-130); Glucose 110 mg/dL (65-115); Magnesium 2.1 mg/dL (1.7-2.3); Phosphorus 3.9 mg/dL (2.5-4.5); Potassium 4.8 mmol/L (3.5-5.1); Sodium 140 mmol/L (136-145)
[2022-07-20 07:44] LABS: Add Urine Culture? No; Bacteria Urine TRACE /hpf; Bilirubin Urine Neg (Negative); Blood Urine Neg (Negative); Glucose Urine UA Norm (Normal); Ketones Urine Negative (Negative); Leukocyte Esterase Urine Negative (Negative); Nitrate Urine Negative (Negative); Protein Urine Neg (Negative); Specific Gravity, Urine 1.005 (1.005-1.030); Urine Appearance Clear (CLEAR); Urine Color Straw (Yellow); Urobilinogen Urine Norm (Negative); pH Urine 7 (5-7)
[2022-07-20 07:58] LABS: Neutrophils % 66.8 %; Slide Review Slide Review Perform
[2022-07-20 08:03] LABS: Creatinine Urine, Random 52 mg/dL (39-259); Microalbumin Random Urine 17 ug/dL (0-20)
[2022-07-20 08:07] LABS: Microalbum Creatinine Ratio Ur 327 mg/dL (0-20)
[2022-07-23 16:54] LABS: BK Virus DNA Real Time PCR NOT DETECTED Log cps/mL; BK Virus DNA Real Time PCR NOT DETECTED copies/mL
[2022-07-23 17:10] LABS: BK VIRUS DNA, QN PCR NOT DETECTED copies/mL; BK VIRUS DNA, QN RT PCR NOT DETECTED Log cps/mL; SOURCE PLASMA
[2022-07-24 13:51] LABS: CMV DNA By PCR NOT DETECTED; CMV DNA, QN PCR NOT DETECTED Log IU/mL; SOURCE BLOOD
== END 2022-07-20 06:37 | disposition home or self-care (01) ==
LOC: LAB 06:39
PROVIDERS: PCP Family Medicine; Visit Provider Internal Medicine
DX: E11.9 Type 2 diabetes mellitus without complications (principal); Z94.0 Kidney transplant status; Z79.899 Other long term (current) drug therapy
CPT/HCPCS: 36415; 80069; 80197; 81001; 82044; 83735; 85025; 87496; 87798; 87799

== ENCOUNTER 2022-08-06 06:38 | Outpatient (CLI) | payer MEDICARE, BC, SELFPAY ==
[2022-08-06 07:28] LABS: Basophils # 0.1 10^3/uL (0.0-0.1); Basophils % 1.3 %; Eosinophils # 0.1 10^3/uL (0.0-0.8); Eosinophils % 1.9 %; Hematocrit 31.5 % (42.0-52.0); Hemoglobin 9.8 g/dL (11.7-16.6); Lymphocytes # 0.5 10^3/uL (0.8-4.8); Lymphocytes % 13.8 %; Mean Corpuscular HGB Conc 31.1 g/dL (30.0-36.0); Mean Corpuscular Hemoglobin 31.6 pg (28.0-34.0); Mean Corpuscular Volume 101.6 fl (80-94); Mean Platelet Volume 9.6 fL (7.4-10.4); Monocytes # 0.5 10^3/uL (0.2-0.9); Monocytes % 13.6 %; Neutrophils # 2.31 10^3/uL (1.8-7.7); Neutrophils % 61.4 %; Nucleated Red Blood Cells % 0 %; Platelet Count 290 10^3/cmm (130-400); Red Cell Distribution Width 13.6 % (12.1-15.1); White Blood Count 3.8 10^3/uL (4.0-10.0)
[2022-08-06 07:51] LABS: Albumin Level 4.2 g/dL (3.5-5.2); Anion Gap 15.4 (5-19); Blood Urea Nitrogen 46 mg/dL (8-23); Calcium 9.3 mg/dL (8.5-10.5); Carbon Dioxide 21 mmol/L (22-29); Chloride 107 mmol/L (98-107); Glomerular Filtration Rate 18.2 mL/min (90-130); Glucose 109 mg/dL (65-115); Magnesium 1.9 mg/dL (1.7-2.3); Phosphorus 3.9 mg/dL (2.5-4.5); Potassium 4.4 mmol/L (3.5-5.1); Sodium 139 mmol/L (136-145)
[2022-08-06 07:52] LABS: Urine Creatinine 75 mg/dL (39-259)
[2022-08-06 07:58] LABS: UPRO/UCREAT Ratio 0.47 mg/mg CR; Urine Protein Random 35 mg/dL
[2022-08-06 08:22] LABS: Add Urine Culture? No; Bacteria Urine TRACE /hpf; Bilirubin Urine Neg (Negative); Blood Urine Neg (Negative); Glucose Urine UA Norm (Normal); Ketones Urine Negative (Negative); Leukocyte Esterase Urine Negative (Negative); Nitrate Urine Negative (Negative); Protein Urine 1+ (Negative); RBC Urine 0-4 /hpf (0-2); Specific Gravity, Urine 1.005 (1.005-1.030); Squamous Epithelial Cell Urine RARE /hpf (0-5); Urine Appearance Clear (CLEAR); Urine Color Straw (Yellow); Urobilinogen Urine Norm (Negative); WBC Urine 0-4 /hpf (0-5); pH Urine 5 (5-7)
[2022-08-06 08:31] LABS: Slide Review Slide Review Perform
[2022-08-10 10:23] LABS: CMV DNA By PCR NOT DETECTED; CMV DNA, QN PCR NOT DETECTED Log IU/mL; SOURCE WHOLE BLOOD
[2022-08-10 18:25] LABS: BK VIRUS DNA, QN PCR NOT DETECTED copies/mL; BK VIRUS DNA, QN RT PCR NOT DETECTED Log cps/mL; SOURCE PLASMA
[2022-08-11 07:09] LABS: BK Virus DNA Real Time PCR NOT DETECTED Log cps/mL; BK Virus DNA Real Time PCR NOT DETECTED copies/mL
== END 2022-08-06 06:39 | disposition home or self-care (01) ==
LOC: LAB 06:40
PROVIDERS: PCP Family Medicine; Visit Provider Internal Medicine
DX: Z48.22 Encounter for aftercare following kidney transplant (principal); E11.9 Type 2 diabetes mellitus without complications; Z94.0 Kidney transplant status
CPT/HCPCS: 80069; 80197; 81001; 82570; 83735; 84156; 85025; 87496; 87798; 87799

== ENCOUNTER → 2022-09-24 11:42 | Outpatient (BNVA) | payer MEDICARE, BC, SELFPAY | PROVIDERS: PCP Family Medicine; Visit Provider Internal Medicine Pulmonary Disease | DX: J43.2 Centrilobular emphysema (principal); Z87.891 Personal history of nicotine dependence; J30.81 Allergic rhinitis due to animal (cat) (dog) hair and dander; Z01.811 Encounter for preprocedural respiratory examination; N18.9 Chronic kidney disease, unspecified; Z94.0 Kidney transplant status; D72.10 Eosinophilia, unspecified; Z79.52 Long term (current) use of systemic steroids | CPT/HCPCS: 99214 ==

== ENCOUNTER 2022-11-07 06:02 | Outpatient (CLI) | payer MEDICARE, BC, SELFPAY ==
--- NOTE | 2022-11-07 10:00 | PETR_ITS ---
PROCEDURE INFORMATION: Exam: PET/CT Skull Base to Mid-thigh Exam date and time: 11/07/2022 11:15 AM Age: 67 years old Clinical indication: Cancer screening before being placed on renal transplant list. Prior surgery; Surgery date: 6+ months; Surgery type: Renal transplant. pv catheter in abdomen. LABS AND CLINICAL REPORTS: Glucose: 158 mg/dl Treatment strategy for malignancy (PET staging): Initial Staging (PI) TECHNIQUE: Imaging protocol: Following at least four-hour fasting and following the injection of radiopharmaceutical, low dose CT images were obtained. Then, PET images were obtained. Attenuation corrected images were constructed using the CT scan. Fused images of PET and CT were reviewed. The standardized uptake values (SUV) reported below are maximum values within a region of interest, expressed in gm/ml. Exam includes orbital meatal line to mid-thigh. Radiopharmaceutical: 13.33 mCi F-18 FDG (Fluorodeoxyglucose), IV. Time of imaging post radiopharmaceutical administration: 1 hour Injection site: Left antecubital vein COMPARISON: PT PET Scan 07/12/2021, CT chest 05/27/2021 FINDINGS: Brain: Visualized brain has normal physiologic uptake. Pharynx: No abnormal uptake. Larynx: No abnormal uptake. Lungs, pleura and trachea: No abnormal uptake. No suspicious nodules or masses in the lungs. Stable subsegmental atelectasis in the right lower lobe. No pleural effusion. Heart: Normal physiologic uptake. There is no cardiomegaly. Severe coronary artery calcification is present. There is no pericardial effusion. Mediastinal space: No abnormal uptake. Liver: No abnormal uptake. Gallbladder and bile ducts: No abnormal uptake. No calcified gallstones. Pancreas: No abnormal uptake. No nodules. Spleen: No abnormal uptake. No splenomegaly Adrenal glands: No abnormal uptake. Kidneys and ureters: [place] kidneys are atrophic with minimal excretion with no hydronephrosis or hydroureter. Renal transplant in the left iliac fossa is swollen measuring 11 x 6.6 x 6.6 cm with diminished secretion with no hydronephrosis. Stomach and bowel: No abnormal uptake. Intraperitoneal and retroperitoneal spaces: No abnormal uptake. Trace amount of free intraperitoneal fluid. Bladder: The bladder is moderately filled with urine containing diluted FDG reflecting either diminished secretion or postvoiding residual. Reproductive: No abnormal uptake. Vasculature: No abnormal uptake. No aortic aneurysm. Lymph nodes: No abnormal uptake. No lymphadenopathy in the head, neck, chest, abdomen, pelvis, and extremities. Bones/joints: No abnormal uptake in the visualized axial and appendicular skeleton. Soft tissues: No abnormal uptake in the visualized head, neck, chest, abdomen, pelvis, and extremities. [facility] INITIAL [id number] IMPRESSION: No abnormal radiotracer uptake.
== END 2022-11-07 06:03 | disposition home or self-care (01) ==
LOC: RAD 11-09 06:02
PROVIDERS: PCP Family Medicine; Visit Provider Internal Medicine Pulmonary Disease
DX: Z01.811 Encounter for preprocedural respiratory examination (principal); J43.2 Centrilobular emphysema; N19 Unspecified kidney failure; U07.1 COVID-19; Z76.82 Awaiting organ transplant status; Z87.891 Personal history of nicotine dependence
CPT/HCPCS: 78815; A9552

== ENCOUNTER → 2022-11-17 11:20 | Outpatient (BNVA) | payer MEDICARE, BC, SELFPAY | PROVIDERS: PCP Family Medicine; Visit Provider Internal Medicine Pulmonary Disease | DX: Z01.811 Encounter for preprocedural respiratory examination (principal); J43.2 Centrilobular emphysema; J30.81 Allergic rhinitis due to animal (cat) (dog) hair and dander; J18.9 Pneumonia, unspecified organism; N18.9 Chronic kidney disease, unspecified; J82.83 Eosinophilic asthma; Z87.891 Personal history of nicotine dependence | CPT/HCPCS: 99214 ==

== ENCOUNTER 2022-12-03 06:59 | Outpatient (CLI) | payer MEDICARE, BC, SELFPAY ==
[2022-12-03 07:37] LABS: Add Urine Microscopic? NO
[2022-12-03 07:38] LABS: Basophils # 0.1 10^3/uL (0.0-0.1); Basophils % 0.8 %; Eosinophils # 0.2 10^3/uL (0.0-0.8); Eosinophils % 1.7 %; Hematocrit 36.2 % (42.0-52.0); Hemoglobin 11.4 g/dL (11.7-16.6); Lymphocytes # 0.8 10^3/uL (0.8-4.8); Lymphocytes % 8.1 %; Mean Corpuscular HGB Conc 31.5 g/dL (30.0-36.0); Mean Corpuscular Hemoglobin 31.2 pg (28.0-34.0); Mean Corpuscular Volume 99.2 fl (80-94); Mean Platelet Volume 9.4 fL (7.4-10.4); Monocytes # 1.1 10^3/uL (0.2-0.9); Monocytes % 11.9 %; Neutrophils # 7.28 10^3/uL (1.8-7.7); Neutrophils % 76.3 %; Nucleated Red Blood Cells % 0 %; Platelet Count 337 10^3/cmm (130-400); Red Blood Count 3.65 10^6/uL (4.1-5.3); Red Cell Distribution Width 13.6 % (12.1-15.1); White Blood Count 9.5 10^3/uL (4.0-10.0)
[2022-12-03 07:53] LABS: Albumin Level 4.3 g/dL (3.5-5.2); Anion Gap 18.1 (5-19); Blood Urea Nitrogen 45 mg/dL (8-23); Calcium 9.3 mg/dL (8.5-10.5); Carbon Dioxide 23 mmol/L (22-29); Chloride 99 mmol/L (98-107); Glucose 100 mg/dL (65-115); Magnesium 2.2 mg/dL (1.7-2.3); Phosphorus 3.9 mg/dL (2.5-4.5); Potassium 4.1 mmol/L (3.5-5.1); Sodium 136 mmol/L (136-145)
[2022-12-03 08:05] LABS: Bilirubin Urine Neg (Negative); Blood Urine Neg (Negative); Glucose Urine UA Norm (Normal); Ketones Urine Negative (Negative); Leukocyte Esterase Urine Negative (Negative); Nitrate Urine Negative (Negative); Protein Urine Neg (Negative); Sulfosalicylic Acid Urine Positive (Negative); Urine Appearance Clear (CLEAR); Urine Color Yellow (Yellow); Urobilinogen Urine Norm (Negative); pH Urine 8 (5-7)
[2022-12-03 08:30] LABS: Add Urine Culture? No; Urine Creatinine 43 mg/dL (39-259)
[2022-12-03 08:32] LABS: UPRO/UCREAT Ratio 0.56 mg/mg CR; Urine Protein Random 24 mg/dL
[2022-12-06 13:49] LABS: CMV DNA By PCR NOT DETECTED; CMV DNA, QN PCR NOT DETECTED Log IU/mL; SOURCE WHOLE BLOOD
[2022-12-07 00:35] LABS: BK VIRUS DNA, QN PCR NOT DETECTED copies/mL; BK VIRUS DNA, QN RT PCR NOT DETECTED Log cps/mL; SOURCE BLOOD
[2022-12-08 11:10] LABS: BK Virus DNA Real Time PCR <2.70 DETECTED Log cps/mL; BK Virus DNA Real Time PCR <500 DETECTED copies/mL
== END 2022-12-03 07:00 | disposition home or self-care (01) ==
LOC: LAB 07:04
PROVIDERS: PCP Family Medicine; Visit Provider Internal Medicine
DX: Z48.22 Encounter for aftercare following kidney transplant (principal); Z94.0 Kidney transplant status; Z79.899 Other long term (current) drug therapy
CPT/HCPCS: 36415; 80069; 80197; 81001; 82570; 83735; 84156; 85025; 87496; 87798; 87799

== ENCOUNTER 2022-12-23 07:05 | Outpatient (CLI) | payer MEDICARE, BC, SELFPAY ==
[2022-12-23 07:37] LABS: Add Urine Microscopic? NO
[2022-12-23 07:41] LABS: Basophils # 0.1 10^3/uL (0.0-0.1); Basophils % 0.9 %; Eosinophils # 0.2 10^3/uL (0.0-0.8); Eosinophils % 2.2 %; Hematocrit 32.5 % (42.0-52.0); Hemoglobin 10.3 g/dL (11.7-16.6); Lymphocytes # 0.9 10^3/uL (0.8-4.8); Lymphocytes % 10.1 %; Mean Corpuscular HGB Conc 31.7 g/dL (30.0-36.0); Mean Corpuscular Hemoglobin 29.9 pg (28.0-34.0); Mean Corpuscular Volume 94.5 fl (80-94); Mean Platelet Volume 9.6 fL (7.4-10.4); Monocytes # 1.1 10^3/uL (0.2-0.9); Monocytes % 13.1 %; Neutrophils # 6.31 10^3/uL (1.8-7.7); Neutrophils % 72.2 %; Nucleated Red Blood Cells % 0 %; Platelet Count 309 10^3/cmm (130-400); Red Blood Count 3.44 10^6/uL (4.1-5.3); Red Cell Distribution Width 12.9 % (12.1-15.1); White Blood Count 8.7 10^3/uL (4.0-10.0)
[2022-12-23 08:04] LABS: Albumin Level 4.5 g/dL (3.5-5.2); Anion Gap 18.1 (5-19); Blood Urea Nitrogen 57 mg/dL (8-23); Calcium 9.3 mg/dL (8.5-10.5); Carbon Dioxide 25 mmol/L (22-29); Chloride 97 mmol/L (98-107); Glomerular Filtration Rate 15.5 mL/min (90-130); Glucose 100 mg/dL (65-115); Magnesium 2.2 mg/dL (1.7-2.3); Phosphorus 3.7 mg/dL (2.5-4.5); Potassium 4.1 mmol/L (3.5-5.1); Sodium 136 mmol/L (136-145)
[2022-12-23 08:05] LABS: Bilirubin Urine Neg (Negative); Blood Urine Neg (Negative); Glucose Urine UA Norm (Normal); Ketones Urine Negative (Negative); Leukocyte Esterase Urine Negative (Negative); Nitrate Urine Negative (Negative); Protein Urine Neg (Negative); Urine Appearance Clear (CLEAR); Urine Color Yellow (Yellow); Urobilinogen Urine Norm (Negative); pH Urine 7 (5-7)
[2022-12-23 08:10] LABS: Add Urine Culture? No; Squamous Epithelial Cell Urine 0-4 /hpf (0-5); WBC Urine 0-4 /hpf (0-5)
[2022-12-23 08:12] LABS: Urine Creatinine 54 mg/dL (39-259); Urine Protein Random 19 mg/dL
[2022-12-23 08:13] LABS: UPRO/UCREAT Ratio 0.35 mg/mg CR
[2022-12-26 14:34] LABS: BK VIRUS DNA, QN PCR NOT DETECTED copies/mL; BK VIRUS DNA, QN RT PCR NOT DETECTED Log cps/mL; SOURCE PLASMA
[2022-12-26 16:19] LABS: BK Virus DNA Real Time PCR NOT DETECTED Log cps/mL; BK Virus DNA Real Time PCR NOT DETECTED copies/mL
[2022-12-27 14:54] LABS: CMV DNA By PCR NOT DETECTED; CMV DNA, QN PCR NOT DETECTED Log IU/mL; SOURCE PLASMA
== END 2022-12-23 07:06 | disposition home or self-care (01) ==
LOC: LAB 07:09
PROVIDERS: PCP Family Medicine; Visit Provider Internal Medicine
DX: Z79.899 Other long term (current) drug therapy (principal); Z94.0 Kidney transplant status
CPT/HCPCS: 36415; 80069; 80197; 81001; 82570; 83735; 84156; 85025; 87496; 87798; 87799

== ENCOUNTER 2022-12-31 12:25 | Outpatient (CLI) | payer MEDICARE, BC, SELFPAY ==
--- NOTE | 2022-12-31 13:00 | CT_ITS ---
WS: [id number] CT chest wo con [id number] HISTORY: abnormal imaging TECHNIQUE: Axial imaging performed through the thorax. Coronal and sagittal reformats are submitted. All CT scans at [facility] use at least one of these dose optimization techniques: automated exposure control; mA and/or kV adjustment per patient size (includes targeted exams where dose is mat ched to clinical indication); or iterative reconstruction. CONTRAST: Omnipaque 350; 100 mL IV. DLP: 186.93 mGy.cm COMPARISON: 05/27/2021, PET/CT imaging 11/07/2022 Lungs and central airway: RIGHT lower lobe dense consolidation from atelectasis has been previously d escribed. No change since 05/27/2021. Also PET/CT was negative. Additional subtle scar at the LEFT eva ng base versus atelectasis. No pneumonia or consolidation. Pleura: Normal. No pleural effusion. Heart and pericardium: Moderate cardiomegaly. Mild pericardial thickening. Mediastinum and rick: No adenopathy noted on this unenhanced exam. Vessels: Mild atherosclerosis. Normal size pulmonary artery. Chest wall and lower neck: Bilateral gynecomastia. Upper abdomen: Upper poles of each kidney demonstrate severe renal atrophy. No adrenal mass. Osseous structures: Mild increase in thoracic kyphosis. CT/CT chest wo con [id number] IMPRESSION: 1. Chronic unchanged RIGHT lower lobe atelectasis. 2. No suspicious masses or nodules. 3. No adenopathy. 4. Mild cardiomegaly. 5. Mild atherosclerosis aorta.
== END 2022-12-31 12:26 | disposition home or self-care (01) ==
PROVIDERS: PCP Family Medicine; Visit Provider Internal Medicine Pulmonary Disease
DX: R91.8 Other nonspecific abnormal finding of lung field (principal); J98.11 Atelectasis; I51.7 Cardiomegaly
CPT/HCPCS: 71250

== ENCOUNTER 2023-01-27 06:56 | Outpatient (CLI) | payer MEDICARE, BC, SELFPAY ==
[2023-01-27 07:15] LABS: Add Urine Microscopic? NO
[2023-01-27 07:18] LABS: Basophils % 0.7 %; Eosinophils # 0.1 10^3/uL (0.0-0.8); Eosinophils % 1.6 %; Hematocrit 27.9 % (37-53); Lymphocytes # 0.7 10^3/uL (0.8-4.8); Lymphocytes % 11.9 %; Mean Corpuscular HGB Conc 31.9 g/dL (30-55); Mean Corpuscular Hemoglobin 29.8 pg (27-33); Mean Corpuscular Volume 93.3 fl (82-101); Mean Platelet Volume 9.2 fL (7.4-10.4); Monocytes # 1.2 10^3/uL (0.2-0.9); Monocytes % 20.4 %; Neutrophils # 3.51 10^3/uL (1.8-7.7); Nucleated Red Blood Cells % 0 %; Platelet Count 310 10^3/cmm (157-399); Red Blood Count 2.99 10^6/uL (3.85-5.65); Red Cell Distribution Width 13.9 % (12.1-15.1); White Blood Count 5.65 10^3/uL (3.29-11.43)
[2023-01-27 07:21] LABS: Bilirubin Urine Neg (Negative); Blood Urine Neg (Negative); Glucose Urine UA Norm (Normal); Ketones Urine Negative (Negative); Leukocyte Esterase Urine Negative (Negative); Nitrate Urine Negative (Negative); Protein Urine Neg (Negative); Urine Appearance Clear (CLEAR); Urine Color Yellow (Yellow); Urobilinogen Urine Norm (Negative); pH Urine 7 (5-7)
[2023-01-27 07:34] LABS: Add Urine Culture? No; Mucus Urine N /hpf; Renal Epithelial Cells Urine N /hpf; WBC Urine RARE /hpf (0-5)
[2023-01-27 07:39] LABS: Albumin Level 4.4 g/dL (3.5-5.2); Anion Gap 15.2 (5-19); Blood Urea Nitrogen 59 mg/dL (8-23); Calcium 9.1 mg/dL (8.5-10.5); Carbon Dioxide 25 mmol/L (22-29); Chloride 99 mmol/L (98-107); Glucose 106 mg/dL (65-115); Magnesium 2.4 mg/dL (1.7-2.3); Phosphorus 4.4 mg/dL (2.5-4.5); Potassium 4.2 mmol/L (3.5-5.1); Sodium 135 mmol/L (136-145)
[2023-01-27 07:40] LABS: UPRO/UCREAT Ratio 0.22 mg/mg CR; Urine Creatinine 50 mg/dL (39-259); Urine Protein Random 11 mg/dL
[2023-01-31 19:04] LABS: BK Virus DNA Real Time PCR NOT DETECTED Log cps/mL; BK Virus DNA Real Time PCR NOT DETECTED copies/mL
[2023-02-01 14:40] LABS: BK VIRUS DNA, QN PCR NOT DETECTED copies/mL; BK VIRUS DNA, QN RT PCR NOT DETECTED Log cps/mL; SOURCE WHOLE BLOOD
[2023-02-01 20:54] LABS: CMV DNA By PCR NOT DETECTED; CMV DNA, QN PCR NOT DETECTED Log IU/mL; SOURCE WHOLE BLOOD
== END 2023-01-27 06:57 | disposition home or self-care (01) ==
LOC: LAB 06:58
PROVIDERS: PCP Family Medicine; Visit Provider Internal Medicine
DX: N39.0 Urinary tract infection, site not specified (principal); Z48.22 Encounter for aftercare following kidney transplant; Z94.0 Kidney transplant status; Z79.899 Other long term (current) drug therapy; Z91.89 Other specified personal risk factors, not elsewhere classified
CPT/HCPCS: 36415; 80069; 81001; 82570; 83735; 84156; 85025; 87496; 87798; 87799

== ENCOUNTER → 2023-02-18 09:43 | Outpatient (BNVA) | payer MEDICARE, BC, SELFPAY | PROVIDERS: PCP Family Medicine; Visit Provider Internal Medicine Pulmonary Disease | DX: J43.2 Centrilobular emphysema (principal); Z01.811 Encounter for preprocedural respiratory examination; J30.81 Allergic rhinitis due to animal (cat) (dog) hair and dander; Z87.891 Personal history of nicotine dependence; J82.83 Eosinophilic asthma | CPT/HCPCS: 99214 ==

== ENCOUNTER 2023-02-26 06:55 | Outpatient (CLI) | payer MEDICARE, BC, SELFPAY ==
[2023-02-26 07:39] LABS: Basophils # 0.1 10^3/uL (0.0-0.1); Basophils % 1.1 %; Eosinophils # 0.1 10^3/uL (0.0-0.8); Eosinophils % 1.4 %; Hematocrit 34.8 % (37-53); Lymphocytes % 12.1 %; Mean Corpuscular HGB Conc 31.6 g/dL (30-55); Mean Corpuscular Hemoglobin 30.1 pg (27-33); Mean Corpuscular Volume 95.1 fl (82-101); Mean Platelet Volume 9.4 fL (7.4-10.4); Monocytes # 1.1 10^3/uL (0.2-0.9); Monocytes % 13.7 %; Neutrophils # 5.84 10^3/uL (1.8-7.7); Nucleated Red Blood Cells % 0 %; Platelet Count 329 10^3/cmm (157-399); Red Blood Count 3.66 10^6/uL (3.85-5.65); Red Cell Distribution Width 15.3 % (12.1-15.1); White Blood Count 8.34 10^3/uL (3.29-11.43)
[2023-02-26 07:51] LABS: Add Urine Culture? No; Bacteria Urine TRACE /hpf; Bilirubin Urine Neg (Negative); Blood Urine 2+ (Negative); Glucose Urine UA Norm (Normal); Ketones Urine Negative (Negative); Leukocyte Esterase Urine Negative (Negative); Nitrate Urine Negative (Negative); Protein Urine Trace (Negative); RBC Urine 0-4 /hpf (0-2); Specific Gravity, Urine 1.005 (1.005-1.030); Squamous Epithelial Cell Urine 0-4 /hpf (0-5); Urine Appearance Clear (CLEAR); Urine Color Yellow (Yellow); Urobilinogen Urine Norm (Negative); WBC Urine 0-4 /hpf (0-5); pH Urine 7 (5-7)
[2023-02-26 08:00] LABS: Albumin Level 4.7 g/dL (3.5-5.2); Anion Gap 17.5 (5-19); Blood Urea Nitrogen 54 mg/dL (8-23); Calcium 9.6 mg/dL (8.5-10.5); Carbon Dioxide 23 mmol/L (22-29); Chloride 101 mmol/L (98-107); Glomerular Filtration Rate 15.1 mL/min (90-130); Glucose 103 mg/dL (65-115); Magnesium 2.6 mg/dL (1.7-2.3); Phosphorus 5.1 mg/dL (2.5-4.5); Potassium 4.5 mmol/L (3.5-5.1); Sodium 137 mmol/L (136-145)
[2023-02-26 08:01] LABS: Urine Creatinine 69 mg/dL (39-259); Urine Protein Random 20 mg/dL
[2023-02-26 08:08] LABS: UPRO/UCREAT Ratio 0.29 mg/mg CR
[2023-03-02 13:33] LABS: BK Virus DNA Real Time PCR NOT DETECTED Log cps/mL; BK Virus DNA Real Time PCR NOT DETECTED copies/mL
[2023-03-02 16:19] LABS: CMV DNA By PCR NOT DETECTED; CMV DNA, QN PCR NOT DETECTED Log IU/mL; SOURCE WHOLE BLOOD
[2023-03-02 22:09] LABS: BK VIRUS DNA, QN PCR NOT DETECTED copies/mL; BK VIRUS DNA, QN RT PCR NOT DETECTED Log cps/mL; SOURCE WHOLE BLOOD
== END 2023-02-26 06:56 | disposition home or self-care (01) ==
PROVIDERS: PCP Family Medicine; Visit Provider Internal Medicine
DX: Z48.22 Encounter for aftercare following kidney transplant (principal); N39.0 Urinary tract infection, site not specified; Z79.899 Other long term (current) drug therapy; Z84.0 Family history of diseases of the skin and subcutaneous tissue
CPT/HCPCS: 36415; 80069; 81001; 82570; 83735; 84156; 85025; 87496; 87798; 87799

== ENCOUNTER → 2023-03-17 15:33 | Outpatient (BNVA) | payer MEDICARE, BC, SELFPAY | PROVIDERS: PCP Family Medicine; Visit Provider Family Medicine | DX: J32.9 Chronic sinusitis, unspecified (principal); H61.22 Impacted cerumen, left ear; J01.10 Acute frontal sinusitis, unspecified | CPT/HCPCS: 87400; 87426 ==

== ENCOUNTER 2023-04-01 07:04 | Outpatient (CLI) | payer MEDICARE, BC, SELFPAY ==
[2023-04-01 08:26] LABS: Basophils # 0.1 10^3/uL (0.0-0.1); Basophils % 0.7 %; Eosinophils # 0.2 10^3/uL (0.0-0.8); Eosinophils % 2.1 %; Hematocrit 31.3 % (37-53); Lymphocytes # 0.8 10^3/uL (0.8-4.8); Lymphocytes % 10.1 %; Mean Corpuscular Volume 96.9 fl (82-101); Mean Platelet Volume 9.3 fL (7.4-10.4); Monocytes # 1.1 10^3/uL (0.2-0.9); Monocytes % 13.1 %; Neutrophils # 5.93 10^3/uL (1.8-7.7); Neutrophils % 72.8 %; Nucleated Red Blood Cells % 0 %; Platelet Count 409 10^3/cmm (157-399); Red Blood Count 3.23 10^6/uL (3.85-5.65); Red Cell Distribution Width 13.1 % (12.1-15.1); White Blood Count 8.15 10^3/uL (3.29-11.43)
[2023-04-01 08:40] LABS: Add Urine Microscopic? YES; Bilirubin Urine Neg (Negative); Blood Urine 2+ (Negative); Glucose Urine UA Norm (Normal); Ketones Urine Negative (Negative); Leukocyte Esterase Urine Negative (Negative); Nitrate Urine Negative (Negative); Protein Urine Neg (Negative); Urine Appearance Clear (CLEAR); Urine Color Yellow (Yellow); Urobilinogen Urine Norm (Negative); pH Urine 7 (5-7)
[2023-04-01 08:47] LABS: Add Urine Culture? No; Squamous Epithelial Cell Urine RARE /hpf (0-5)
[2023-04-01 08:56] LABS: Albumin Level 4.4 g/dL (3.5-5.2); Anion Gap 14.2 (5-19); Blood Urea Nitrogen 48 mg/dL (8-23); Calcium 8.8 mg/dL (8.5-10.5); Carbon Dioxide 26 mmol/L (22-29); Chloride 101 mmol/L (98-107); Glomerular Filtration Rate 20.2 mL/min (90-130); Glucose 91 mg/dL (65-115); Magnesium 2.1 mg/dL (1.7-2.3); Phosphorus 2.6 mg/dL (2.5-4.5); Potassium 4.2 mmol/L (3.5-5.1); Sodium 137 mmol/L (136-145)
[2023-04-01 08:57] LABS: Calcium 8.9 mg/dL (8.5-10.5)
[2023-04-01 08:59] LABS: Parathyroid Hormone 195.5 pg/mL (15-65)
[2023-04-01 09:02] LABS: Urine Creatinine 64 mg/dL (39-259)
[2023-04-01 09:08] LABS: 25 Hydroxy Vitamin D 44 ng/mL (30-100)
[2023-04-01 09:09] LABS: UPRO/UCREAT Ratio 0.36 mg/mg CR; Urine Protein Random 23 mg/dL
[2023-04-05 09:04] LABS: BK VIRUS DNA, QN PCR NOT DETECTED copies/mL; BK VIRUS DNA, QN RT PCR NOT DETECTED Log cps/mL; SOURCE WHOLE BLOOD
[2023-04-06 05:30] LABS: CMV DNA By PCR NOT DETECTED; CMV DNA, QN PCR NOT DETECTED Log IU/mL; SOURCE WHOLE BLOOD
== END 2023-04-01 07:05 | disposition home or self-care (01) ==
PROVIDERS: PCP Family Medicine; Visit Provider Internal Medicine Nephrology
DX: N39.0 Urinary tract infection, site not specified (principal); Z91.89 Other specified personal risk factors, not elsewhere classified; Z94.0 Kidney transplant status
CPT/HCPCS: 36415; 80069; 81001; 82306; 82310; 82570; 83735; 83970; 84156; 85025; 87496; 87798

== ENCOUNTER → 2023-06-23 08:30 | Outpatient (BNVA) | payer MEDICARE, BC, SELFPAY | PROVIDERS: PCP Family Medicine; Visit Provider Internal Medicine Pulmonary Disease | DX: Z01.811 Encounter for preprocedural respiratory examination (principal); J30.81 Allergic rhinitis due to animal (cat) (dog) hair and dander; I12.0 Hypertensive chronic kidney disease with stage 5 chronic kidney disease or end stage renal disease; N18.6 End stage renal disease; J43.2 Centrilobular emphysema; Z87.891 Personal history of nicotine dependence | CPT/HCPCS: 99214 ==

== ENCOUNTER 2023-07-02 10:23 | Outpatient (CLI) | payer MEDICARE, BC, SELFPAY ==
[2023-12-23 10:32] LABS: Miscellaneous Test SEE REPORT
== END 2023-07-02 10:24 | disposition home or self-care (01) ==
PROVIDERS: PCP Family Medicine; Visit Provider Internal Medicine
DX: Z01.89 Encounter for other specified special examinations (principal)
CPT/HCPCS: 36415

== ENCOUNTER → 2023-10-01 12:24 | Outpatient (BNVA) | payer MEDICARE, BC, SELFPAY | PROVIDERS: PCP Family Medicine; Visit Provider Emergency Medicine | DX: J06.9 Acute upper respiratory infection, unspecified (principal); J20.8 Acute bronchitis due to other specified organisms; B96.89 Other specified bacterial agents as the cause of diseases classified elsewhere | CPT/HCPCS: 87400; 87426 ==

== ENCOUNTER 2023-10-27 07:42 | Outpatient (CLI) | payer MEDICARE, BC, SELFPAY ==
--- NOTE | 2023-10-27 08:00 | CT_ITS ---
WS: [id number] LDCT LUNG CANCER SCREENING HISTORY: follow up TECHNIQUE: Axial imaging performed from the apices to 1 cm below the costophrenic angles. Coronal and sagittal reformats are submitted with axial MIP series. All CT scans at [facility] use at least one of these dose optimization techniques: automated exposure control; mA and/or kV adjustment per patient size (includes targeted exams where dose is matched to clinical indication); or iterativ e reconstruction. DLP: 56.30 mGy.cm DIvol: Mean CTDIvol: 1.00 (mGy) COMPARISON: Chest CT 12/31/2022 Diagnostic quality: Satisfactory Lungs: Lung volumes are slightly decreased. Reidentified is the dense atelectasis abutting the pleura in the RIGHT lower lobe. Portions of the atelectasis have improved while other portions are chronic. Progression of opacifications in the LEFT lower lobe Reticular nodular opacifications. Partial atelectasis. These findings are new. Additional opacificati on in the RIGHT middle lobe. Narrowing and obstruction of the LEFT lower lobe bronchus. Heart: Mild cardiomegaly. Moderate coronary artery calcifications.. Other findings: Mild atherosclerosis aorta. Moderate bilateral gynecomastia. Normal size pulmonary ar wilfredo. Small portion of the LEFT upper pole LEFT kidney is included. There is cortical atrophy and thi nning. No adrenal mass. CT/CT lung screening [id number] IMPRESSION: LUNG-RADS: 4B-Suspicious FOLLOW UP: See Report OTHER FINDINGS (S MODIFIER): None. 1. Chronic atelectasis at the RIGHT lung base is stable. 2. New opacifications in the LEFT lower lobe. In part this is due to atelectas is. There is soft tissue obstructing the proximal LEFT lower lobe bronchus. Rec ommend follow-up bronchoscopy or at least short-term follow-up imaging evaluati on. Chest CT with IV contrast would be of benefit. Changes in the LEFT lower lo be may all be related to atelectasis but underlying mass or neoplasm cannot be excluded.
== END 2023-10-27 07:43 | disposition home or self-care (01) ==
LOC: RAD 07:43
PROVIDERS: PCP Family Medicine; Visit Provider Internal Medicine Pulmonary Disease
DX: Z12.2 Encounter for screening for malignant neoplasm of respiratory organs (principal); Z87.891 Personal history of nicotine dependence
CPT/HCPCS: 71271

== ENCOUNTER 2023-11-02 10:14 | Day surgery (SDC) | payer MEDICARE, BC, SELFPAY ==
[2023-11-02] VITALS (9 sets, daily range): BP systolic 151–177; BP diastolic 60–80; PULSE 70–85; RESP 16–20; TEMP 36.1–36.6; O2SAT 95–97; BMI 24.0
[2023-11-02] MEDS: sodium chloride 0.9% 1,000 ML 30 ML IV (10:50)
--- NOTE | 2023-11-02 11:26 | PM.OPSURHP ---
Providers/Chief Complaint Admitting Physician: Konstantin Mathew MD [facility] Primary Care Provider: Lauren Carranza MD Chief Complaint: R91.8 History of Present Illness Jimmy Hernandez is a 68 year old male past medical history COPD, hypertension, GERD, Basal cell carcinoma face,COVID-16 August 2020 hospitalization which resulted in renal failure-since then patient is on peritoneal dialysis and underwent kidney transplant 03/17/2022 but now having issues with transplanted kidney and so is undergoing workup for second kidney transplant. Patient is former cigarette smoker, quit July 2020, 2ppd x 30 year Hx. upon review of previous abdominal pelvis CT during his Covid admission on 08/28/2020 showed right lower lobe pneumonia with small bilateral pleural effusions. He underwent bronchoscopy on 06/10/2021. Mucosa appeared edematous and lower lobe segments compressing right middle lobe opening. Thick mucus secretions noted through right lower lobe and some in the right upper lobe. All secretions were suctioned right away and BAL obtained from right lower lobe was growing Moraxella for which she received Augmentin for 7 days. -Post bronchoscopy chest x-ray showed probable residual atelectasis/consolidation of medial basal segment of right lower lobe --PET CT 07/12/21: Showed pleural-based opacity in the posterior right lower lobe demonstrated nonfocal, low-grade FDG uptake is consistent with inflammation.?Right upper lobe atelectasis is FDG negative; there are no findings to indicate an obstructive mass.?There are no findings for malignancy.? When compared to CT 05/27/2021 right lower lower lobe opacity has improved significantly post bronchoscopy most likely suggesting atelectasis secondary to mucous plug which was suctioned during bronchoscopy.? recommended chest physiotherapy and airway clearance techniques with Acapella and Mucinex -However as part of retransplantation of kidney on 09/10/2022-patient had CT chest at [facility]-the report said there was left lower lobe nodular opacities likely atelectasis but given the nodularity recommended to repeat CT chest in 3 months - However I have repeated PET/CT 11/07/22 which did not show any abnormal uptake in the lungs or anywhere else. So based on PET/CT 11/07/22 findings he does not need any further work up for malignancy. As part of pretransplant workup is most recent CT chest 10/27/2023 showed chronic atelectasis right lung base which is stable. No opacifications left lung lower lobe in part due to atelectasis. There is a soft tissue obstructing proximal left lower lobe bronchus Today scheduled for bronchoscopic inspection of airways, clearance of mucous plugs, rule out underlying mass or neoplasm. Review of Systems General: Reports: 10 or more systems reviewed and unremarkable except in HPI and below Medications/Allergies Home Medications Medication Instructions Recorded Confirmed Last Taken Type gabapentin 100 mg capsule 100 mg PO DAILY 11/05/20 11/02/23 11/02/23 07:00 History carvedilol 25 mg tablet 12.5 mg PO BID 06/05/21 11/02/23 11/02/23 07:00 History aspirin 81 mg tablet,delayed 81 mg PO DAILY 06/08/22 11/02/23 11/01/23 History release atorvastatin 40 mg tablet 40 mg PO DAILY 06/08/22 11/02/23 11/02/23 07:00 History cholecalciferol (vitamin D3) 50 50 mcg PO DAILY 06/08/22 11/02/23 11/02/23 07:00 History mcg (2,000 unit) capsule famotidine 20 mg tablet 20 mg PO DAILY 06/08/22 11/02/23 11/02/23 07:00 History melatonin 5 mg capsule 5 mg PO DAILY 06/08/22 11/02/23 10/31/23 History mycophenolate sodium 360 mg 720 mg PO TID 06/08/22 11/02/23 11/02/23 07:00 History tablet,delayed release (Myfortic) prednisone 5 mg tablet 5 mg PO DAILY 06/08/22 11/02/23 11/02/23 07:00 History acetaminophen 325 mg capsule 325 mg PO QID PRN Pain 09/24/22 11/02/23 10/31/23 History belatacept 250 mg intravenous 250 mg IV .[id number] 09/24/22 11/02/23 10/21/23 History solution furosemide 20 mg tablet 20 mg PO QAM 02/18/23 11/02/23 11/02/23 07:00 History montelukast 10 mg tablet 10 mg PO DAILY #30 tabs 03/26/23 11/02/23 10/31/23 Rx (Singulair) fluticasone fur. 100 mcg-umeclid 1 inh inhalation DAILY #60 ea 05/12/23 11/02/23 11/01/23 Rx 62.5 mcg-vilant 25 mcg inhalat.powder (Trelegy Ellipta) Allergies Allergy/AdvReac Type Severity Reaction Status Date / Time fluconazole Allergy ADR-Itching Verified 11/01/23 11:01 Sulfa (Sulfonamide Allergy swelling Verified 11/01/23 11:01 Antibiotics) PFSH PFSH: Medical History GERD without esophagitis Right lower lobe pneumonia Cerebral aneurysm COVID-19 Hypertension Surgical History Peritoneal dialysis catheter in place History of esophagogastroduodenoscopy (EGD) 2020 History of brain surgery S/P hemodialysis catheter insertion (08/30/20) Removed on 12/09/2020 Social History Smoking and tobacco/nicotine status: former use of tobacco/nicotine Quit status (tobacco/nicotine): has quit using Year quit tobacco: 2020 Former quit date comment: 2ppd x 30 years Alcohol intake: current Substance/Drug Use: never Vital Signs Vitals Signs: Last Vital Signs Temp 98 F 11/02/23 10:33 Pulse 70 11/02/23 10:33 Resp 18 11/02/23 10:33 BP 170/80 11/02/23 10:33 Pulse Ox 96 11/02/23 10:33 O2 Del Method Room Air 11/02/23 10:33 Weight: Weight last 48 hrs Weight 163 lb Physical Exam Narrative: EXAM NARRATIVE: General: alert, NAD HEENT: conj clear, EOMI, PERRL, mmm, Neck: supple, no meningismus Heme: no cervical LAP Respiratory: Inspection: No visible deformity of the chest wall Palpation: Trachea is mildly deviated to the right, bilateral symmetric expansion Percussion: Bilateral tympanic percussion note both anterior and posteriorly Auscultation: Bilateral clear to auscultation both anterior and posteriorly, no crackles wheezing or rhonchi Cardiovascular: rrr, nl s1s2, no mrg Abdomen: soft, nt, nd, no r/g, bs+ Extremities: pulses +, no edema, no c/c : no CVA tenderness Skin: intact, no rash MSK: no back or neck pain Neurologic: grossly intact A&P Assessment and plan (1) Consolidation of left lower lobe of lung: Patient undergoing evaluation for kidney retransplantation CT chest showing new left lower lobe opacities in part due to atelectasis-there is a suspicious soft tissue obstructing proximal left lower lobe bronchus. Today scheduled for bronchoscopy for airway inspection, clearance of mucous plugs, possible endobronchial biopsies if there is any obstructing lesion. Coding Level of Care Code Acute Code for Chg Fwd Diagnoses Consolidation of left lower lobe of lung J18.1 Time Spent (min) 31
--- NOTE | 2023-11-02 11:39 | ANES.PREANE2 ---
Pre-Anesthetic Assessment Height/Weight: Height 1.75 m Weight 73.936 kg Temp Pulse Resp BP Pulse Ox O2 Del Method 98 F 70 18 170/80 96 Room Air 11/02/23 10:33 11/02/23 10:33 11/02/23 10:33 11/02/23 10:33 11/02/23 10:33 11/02/23 10:33 Preop Diagnosis: lung infection Operation Date: 11/02/23 11:20 Proposed Procedures p Bronchoalveolar Lavage, 55839, 49982, 04971, 25965, 75720, 46509, 61186, 74270, 16368, R91.8(Not Applicable) - Konstantin Decker DatarMD Familial anesthetic complications: none Was Beta [place] taken within 24 hours: Yes Was Clonidine taken within 24 hours: N/A Last intake: Intake Last Liquid Date 11/01/23 Last Liquid Time 17:00 Last Solid Date 11/01/23 Last Solid Time 17:00 Last Intake: 17:00 Social No alcohol and No tobacco (stop 4 years ago) Exam alert, oriented x 3, clear to auscultation bilaterally and regular rate & rhythm Airway Submandibular: within normal limits Cervical ROM: within normal limits Mallampati: Class II Dentition: full Pulmonary Asthma, Chronic Obstructive Pulmonary Disease, Cough, Exertional Dyspnea and Shortness of Breath CV/HEM Hypertension Chronic Renal Failure Kidney transplant 04-21 labs 10-20-24 h/h 02/26 plt 424 NA 138 K 4.5 bun 44 Cr 2.79 Hepatic None reported GI Gastroesophageal Reflux Disease (controlled) Metabolic None reported Musc/skel Lower Back Pain Neuropsych Transient Ischemic Attack Anesthetic Plan ASA status: 3 Anesthesia: General Risk of > 500 ml blood loss (7ml/kg in children): No Medications/Allergies Home Medications Medication Instructions Recorded Confirmed Last Taken Type gabapentin 100 mg capsule 100 mg PO DAILY 11/05/20 11/02/23 11/02/23 07:00 History carvedilol 25 mg tablet 12.5 mg PO BID 06/05/21 11/02/23 11/02/23 07:00 History aspirin 81 mg tablet,delayed 81 mg PO DAILY 06/08/22 11/02/23 11/01/23 History release atorvastatin 40 mg tablet 40 mg PO DAILY 06/08/22 11/02/23 11/02/23 07:00 History cholecalciferol (vitamin D3) 50 50 mcg PO DAILY 06/08/22 11/02/23 11/02/23 07:00 History mcg (2,000 unit) capsule famotidine 20 mg tablet 20 mg PO DAILY 06/08/22 11/02/23 11/02/23 07:00 History melatonin 5 mg capsule 5 mg PO DAILY 06/08/22 11/02/23 10/31/23 History mycophenolate sodium 360 mg 720 mg PO TID 06/08/22 11/02/23 11/02/23 07:00 History tablet,delayed release (Myfortic) prednisone 5 mg tablet 5 mg PO DAILY 06/08/22 11/02/23 11/02/23 07:00 History acetaminophen 325 mg capsule 325 mg PO QID PRN Pain 09/24/22 11/02/23 10/31/23 History belatacept 250 mg intravenous 250 mg IV .[id number] 09/24/22 11/02/23 10/21/23 History solution furosemide 20 mg tablet 20 mg PO QAM 02/18/23 11/02/23 11/02/23 07:00 History montelukast 10 mg tablet 10 mg PO DAILY #30 tabs 03/26/23 11/02/23 10/31/23 Rx (Singulair) fluticasone fur. 100 mcg-umeclid 1 inh inhalation DAILY #60 ea 05/12/23 11/02/23 11/01/23 Rx 62.5 mcg-vilant 25 mcg inhalat.powder (Trelegy Ellipta) Allergies Allergy/AdvReac Type Severity Reaction Status Date / Time fluconazole Allergy ADR-Itching Verified 11/01/23 11:01 Sulfa (Sulfonamide Allergy swelling Verified 11/01/23 11:01 Antibiotics) Current Medications Generic Name Dose Route Start Last Admin Trade Name Freq PRN Reason Stop Dose Admin Sodium Chloride 1,000 mls @ 30 mls/hr 11/02/23 10:30 11/02/23 10:50 Sodium Chloride 0.9% IV 11/03/23 10:29 30 mls/hr .Q24H YARELY Administration PFSH Anesthesia Medical History GERD without esophagitis Right lower lobe pneumonia Cerebral aneurysm COVID-19 Hypertension Surgical History Peritoneal dialysis catheter in place History of esophagogastroduodenoscopy (EGD) 2020 History of brain surgery S/P hemodialysis catheter insertion (08/30/20) Removed on 12/09/2020 Social History Smoking and tobacco/nicotine status: former use of tobacco/nicotine Quit status (tobacco/nicotine): has quit using Year quit tobacco: 2020 Former quit date comment: 2ppd x 30 years Alcohol intake: current Substance/Drug Use: never Data Anesthesia Cardiac Studies: Echocardiogram Ultrasound 08/29/20
[2023-11-02] MEDS: lidocaine 1% INJ 10 mL (per mL) XX (12:14)
[2023-11-02 12:54] LABS: Bronch Source LEFT LOWER LOBE BAL; Cyto Order Verification Order Verified; PATH Referral Yes
[2023-11-02 12:55] LABS: Apprearance, Bronch Wash Cloudy (CLEAR); Color, Bronc Wash Slight Pink
--- NOTE | 2023-11-02 12:59 | PM.OP ---
Operative Report Date of procedure: November 02, 2023 Pre-op diagnosis: Left lower lobe mucous plugging and atelectasis Post-op diagnosis: Same Procedure done: Dx Bronchoscope w/Washings or airway inspection Dx Bronchoscope w/BAL Bronchoscopy w/ therapeutic aspiration of the tracheobronchial tree (clearance of airway secretions, removal of mucus plugs) Surgeon: Konstantin Mathew MD Procedure: Dx Bronchoscope w/Washings or airway inspection Dx Bronchoscope w/BAL Bronchoscopy w/ therapeutic aspiration of the tracheobronchial tree (clearance of airway secretions, removal of mucus plugs) Pre-Operative Diagnosis: Left lower lung opacification-suspected mucous plugging versus endobronchial obstruction Post-Operative Diagnosis: Mucous plugging Indication: CT evidence of new opacifications in left lower lobe-suspect soft tissue obstructing proximal left lower lobe bronchus Consent: Consents were obtained from patient and placed in the chart Pre-procedure Evaluation: Patient was evaluated clinically and ancillary testing reviewed. The risk of having active MTB infection is very low in my clinical judgement. ASA: 3 Time out: Performed by the procedure team and nursing staff. Vent support maintained on Fio2 100. Anesthesia: General anesthesia by anesthesia team. A laryngeal mask airway was placed for ventilatory support Local anesthesia: The liya in the right and left mainstem bronchi were anesthetized with 1% lidocaine, 6 mL. Summary of Significant Findings: -Bronchoscope passed through LMA. Vocal cords visualized and normal and mobile. Bronchoscope passed through the glottis into the trachea. There are no endotracheal lesions mucosa appeared normal. There is significant thick mucus in the distal trachea which was suctioned right away. The liya, the right and left mainstem bronchi are anesthetized with 1% lidocaine. In a systematic manner bilateral bronchial tree was then examined. The bronchoscope was then introduced into the right mainstem bronchus. The right upper lobe, right middle lobe and right lower lobe bronchi were examined up to the third subsegmental level and no abnormalities were identified. The mucosa appeared edematous and right middle lobe and lower lobe segments with no endobronchial lesions, active bleeding. There has been thick mucus secretions in all airways which were suctioned right away. There is no evidence of active bleeding. The bronchoscope was advanced into the left mainstem bronchus. The mucosa appeared normal with no endobronchial lesions. There were thick mucus secretions in the distal left mainstem bronchus which were suctioned right away. The left upper lobe, lingula and left lower lobe bronchi were examined up to the third subsegmental level and no abnormalities were identified. The mucosa off all left lower lobe segments appeared significantly edematous with no endobronchial lesion. There were very thick abundant mucus secretions in left lower lobe-which were suctioned right away. There is no evidence of active bleeding. After suctioning and cleaning of majority of the airways; therapeutic bronchoscope was withdrawn and introduced within diagnostic scope and further advanced into distal left lower lobe airways. The mucosa appeared overall edematous with no evidence of endobronchial lesions. The bronchoscope was wedged at the entrance of lateral basal segment of left lower lobe-instilled 60 cc normal saline and aspirated 17 cc bronchoalveolar lavage. Bronchoscope was then removed and the procedure terminated. Estimated Blood Loss: None Specimens: Bronchoalveolar lavage from left lower lobe sent for fluid analysis, cytology, bacterial cultures, fungal cultures, Complications:None; patient tolerated the procedure well. Disposition: Patient will discharged home. Surgeon: Konstantin Mathew MD, [facility] Pulmonary critical Care Medicine [facility] Related Problem List Diagnoses (1) Consolidation of left lower lobe of lung: (2) Mucus plugging of bronchi:
--- NOTE | 2023-11-02 13:10 | ANE.PACU2 ---
Inpatient post-anesthesia follow up: Airway intact: Yes Vital signs: Temperature 97.1 F Pulse Rate 83 Respiratory Rate 20 Blood Pressure 176/80 Pulse Oximetry 96 Oxygen Delivery Me thod Room Air Oxygen Flow Rate Fraction of Inspir ed Oxygen Hydration adequate: Yes Nausea and vomiting: No Pain level: 1 Mental status: Baseline
[2023-11-02 13:43] LABS: Total Cells Counted Bronch 200
== END 2023-11-02 13:34 | disposition home or self-care (01) ==
PROVIDERS: PCP Family Medicine; Visit Provider Internal Medicine Pulmonary Disease
PROC: (CPT 31624; principal; 2023-11-02 11:10)
DX: J18.1 Lobar pneumonia, unspecified organism (principal); J44.9 Chronic obstructive pulmonary disease, unspecified; I10 Essential (primary) hypertension; K21.9 Gastro-esophageal reflux disease without esophagitis; Z85.828 Personal history of other malignant neoplasm of skin; Z86.16 Personal history of COVID-19; Z94.0 Kidney transplant status
CPT/HCPCS: 31624; 31645; 80503; 87070; 87077; 87102; 87186; 87205; 87206; 88112; 89050; J2704; J7030

== ENCOUNTER → 2023-11-09 14:05 | Outpatient (BNVA) | payer MEDICARE, BC, SELFPAY | PROVIDERS: PCP Family Medicine; Visit Provider Internal Medicine Pulmonary Disease | DX: Z01.811 Encounter for preprocedural respiratory examination (principal); J44.9 Chronic obstructive pulmonary disease, unspecified; J30.81 Allergic rhinitis due to animal (cat) (dog) hair and dander; J18.9 Pneumonia, unspecified organism; J18.1 Lobar pneumonia, unspecified organism | CPT/HCPCS: 99214 ==

== ENCOUNTER 2023-11-23 09:21 | Outpatient (CLI) | payer MEDICARE, BC, SELFPAY ==
--- NOTE | 2023-11-23 09:30 | PETR_ITS ---
PROCEDURE INFORMATION: Exam: PET/CT Skull Base to Mid-thigh Exam date and time: 11/23/2023 9:27 AM Age: 68 years old Clinical indication: Abnormal findings; New opacifications in the left lower lobe LABS AND CLINICAL REPORTS: Glucose: 114 mg/dl Treatment strategy for malignancy (PET staging): Initial Staging (PI) TECHNIQUE: Imaging protocol: Following at least four-hour fasting and following the injection of radiopharmaceutical, low dose CT images were obtained. Then, PET images were obtained. Attenuation corrected images were constructed using the CT scan. Fused images of PET and CT were reviewed. The standardized uptake values (SUV) reported below are maximum values within a region of interest, expressed in gm/ml. Exam includes orbital meatal line to mid-thigh. Radiopharmaceutical: 11.85 mCi F-18 FDG (Fluorodeoxyglucose), IV. Time of imaging post radiopharmaceutical administration: 45 minutes Injection site: Right antecubital COMPARISON: 1. PT PET Scan 07/12/2021 8:41 AM 2. PT PET skull to thigh INIT [id number] 11/07/2022 11:[address] lung screening [id number] 10/27/2023 8:09 AM FINDINGS: Brain: Visualized brain has normal physiologic uptake. Pharynx: No abnormal uptake. Larynx: No abnormal uptake. Lungs, pleura and trachea: No abnormal uptake. Intervally resolved left lower lobe airway opacification and parenchymal consolidation with mild residual non FDG avid subsegmental atelectasis versus scarring. Mild scattered secretions within right lower lobe bronchi. Stable chronic non FDG avid posterior right lower lobe subsegmental atelectasis. Heart: Normal physiologic uptake. Coronary arteries: Moderate coronary artery calcification. Mediastinal space: No abnormal uptake. Liver: No abnormal uptake. Gallbladder and biliary ducts: No abnormal uptake. Pancreas: No abnormal uptake. Spleen: No abnormal uptake. Adrenal glands: No abnormal uptake. Kidneys and ureters: Bilateral [place] kidneys are atrophic with minimal excretion at the right renal pelvis. Stable CT appearance of left iliac fossa renal transplant with FDG uptake. Stomach and bowel: No abnormal uptake. Urinary bladder: Normal physiologic FDG urinary excretion. Vasculature: No abnormal uptake. Heavy systemic atherosclerotic calcification without aortic aneurysm. Lymph nodes: No abnormal uptake. No lymphadenopathy in the head, neck, chest, abdomen, pelvis, and extremities. Skeleton: No abnormal uptake in the visualized axial and appendicular skeleton. Degenerative changes along the spine. Soft tissues: No abnormal uptake in the visualized head, neck, chest, abdomen, pelvis, and extremities. Bilateral gynecomastia. Small fat containing umbilical hernia. PET/PET skull to thigh INIT [id number] IMPRESSION: 1. No abnormal radiotracer uptake. 2. Resolved left lower lobe airway opacification and parenchymal consolidation with mild residual non FDG avid subsegmental atelectasis versus scarring.
== END 2023-11-23 09:22 | disposition home or self-care (01) ==
PROVIDERS: PCP Family Medicine; Visit Provider Internal Medicine Pulmonary Disease
DX: R93.89 Abnormal findings on diagnostic imaging of other specified body structures (principal); R91.8 Other nonspecific abnormal finding of lung field; J98.11 Atelectasis; N26.1 Atrophy of kidney (terminal); M47.9 Spondylosis, unspecified; N62 Hypertrophy of breast; K42.9 Umbilical hernia without obstruction or gangrene
CPT/HCPCS: 78815; A9552

== ENCOUNTER 2024-04-24 10:26 | Outpatient (CLI) | payer MEDICARE, BC, SELFPAY ==
--- NOTE | 2024-04-24 10:29 | XR_ITS ---
WS: [id number] Chest 2 views, 04/24/2024 Clinical Data: flu like illness / immunocompromised Comparison: Two-view chest, 10/14/2021 Findings: There is a patchy opacity in the right middle lobe could represent pneumonia and/or atelect asis. No nodules, masses or effusions are seen. The heart is normal. The pulmonary vascularity is not increased. No pneumothorax is seen. The aortic arch and descending thoracic aorta show tortuosity. XR/XR chest 2V* [id number] Impression: 1. Right middle lobe opacity which may represent pneumonia and/or atelectasis. 2. Atherosclerosis.
== END 2024-04-24 10:27 | disposition home or self-care (01) ==
LOC: RAD 10:28
PROVIDERS: PCP Family Medicine; Visit Provider Family Medicine
DX: R68.89 Other general symptoms and signs (principal); R91.8 Other nonspecific abnormal finding of lung field; J06.9 Acute upper respiratory infection, unspecified; I10 Essential (primary) hypertension; N17.9 Acute kidney failure, unspecified
CPT/HCPCS: 71046; 80053; 85025; 87400; 87899